=== PATIENT | male | born 1960 | race Caucasian/White ===

== ENCOUNTER 2016-07-19 18:34 | Emergency (ER) | payer MEDICARE, OTHER ==
[~2016-07-19] VITALS: Ht 177.8 cm; Wt 73.0 kg
[~2016-07-19 18:34] MED LIST: GABA300C5 PO; HYDR10SO PO; IBUP800T23 PO; LORA-475 PO; VENL1CAP38 PO
[2016-07-19 18:43] VITALS: BP 114/60; PULSE 91; RESP 18; O2SAT 95
[2016-07-19] MEDS ORDERED: SODIUM CHLOR 0.9% 1000 ML INJ 1,000 ML IV ONE (19:00)
[2016-07-19 19:10] VITALS: TEMP 98
[2016-07-19 19:44] LABS: BASOPHIL # 0.1 TH/MM3 (0-0.2); BASOPHIL % 0.6 % (0.0-2.0); EOSINOPHIL # 0.1 TH/MM3 (0-0.4); EOSINOPHIL % 0.7 % (0.0-4.0); HEMATOCRIT 39.8 % (39.0-51.0); HEMO FLAGS DIFF FINAL; LYMPH % 36.7 % (9.0-44.0); LYMPHOCYTE # 3.3 TH/MM3 (1.0-4.8); MEAN CELL VOLUME 95.2 FL (80.0-100.0); MEAN CORPUSCULAR HEMOGLOBIN 34.1 PG (27.0-34.0); MEAN CORPUSCULAR HGB CONC 35.8 % (32.0-36.0); MONO % 6.7 % (0.0-8.0); NEUT % 55.3 % (16.0-70.0); PLATELET COUNT 274 TH/MM3 (150-450); RED BLOOD COUNT 4.18 MIL/MM3 (4.50-5.90); RED CELL DISTRIBUTION WIDTH 14.5 % (11.6-17.2)
[2016-07-19] MEDS ORDERED: LORazepam 0.5 MG TAB PO ONE (19:45)
[2016-07-19] MEDS ORDERED: ACETAMINOPHEN/HYDROcodone 325 MG/5 MG TAB PO ONE (19:45)
[2016-07-19 20:12] LABS: BICARBONATE 28.6 MEQ/L (21.0-32.0); POTASSIUM 3.4 MEQ/L (3.5-5.1)
--- NOTE | 2016-07-19 21:30 | PD ---
HPI Chief Complaint: Medical Clearance Time Seen by Provider: 18:40 Travel History International Travel<30 days: No Contact w/Intl Traveler<30days: No Traveled to known affect area: No History of Present Illness HPI Patient is a 56-year-old male brought in by police under [employer] act. He was found stumbling walking around with alcohol on his breath. He currently has no complaints. He says he has chronic pain and he needs his Ativan and Lortab that he takes daily. He denies any falls tonight. PFSH Past Medical History Arthritis: Yes Bipolar Disorder: Yes Anxiety: Yes Depression: Yes Cancer: No Cardiovascular Problems: No Diabetes: No Diminished Hearing: No Endocrine: No Genitourinary: No Headaches: Yes (CLUSTER-TYPE) Immune Disorder: No Implanted Vascular Access Dvce: Yes Insomnia: Yes Musculoskeletal: Yes (Repair of C3-C5-C7, Left shoulder, left knee, neck) Neurologic: No Psychiatric: Yes Reproductive: No Respiratory: No Integumentary: Yes (SORES ON HEAD) Immunizations Current: Yes Seizures: Yes (RELATED TO WITHDRAWAL) Thyroid Disease: No Past Surgical History Abdominal Surgery: Yes (SPLENECTOMY) Body Medical Devices: Roes and pins down left leg, wires in neck and left shoulder Cardiac Surgery: No Genitourinary Surgery: No Joint Replacement: Yes (LEFT SHOULDER, LEFT KNEE) Neurologic Surgery: No Oral Surgery: Yes (TEETH EXTRACTED) Pacemaker: No Thoracic Surgery: No Tonsillectomy: Yes Other Surgery: Yes (Spleenectomy, Left arm/shoulder, Left knee, neck) Social History Alcohol Use: Yes Tobacco Use: Yes (1/2 PPD) Substance Use: Yes (Marijuana) Allergies-Medications (Allergen,Severity, Reaction): Coded Allergies: No Known Allergies (Unverified , 07/12/16) Reported Meds & Prescriptions Reported Meds & Active Scripts Active Ativan (Lorazepam) 2 Mg Tab 2 Mg PO Q8H PRN Effexor XR 24 HR (Venlafaxine HCl) 37.5 Mg Cap 37.5 Mg PO DAILY Gabapentin 300 Mg Cap 300 Mg PO 5 TIMES A DAY Ibuprofen 800 Mg Tab 800 Mg PO DAILY Reported Hydrocodone-Acetaminophen 10-325 mg Tab 1 Tab PO Q6H PRN Review of Systems Except as stated in HPI: all other systems reviewed are Neg Eyes: No: Diploplia, Blurred Vision HENT: No: Headaches Cardiovascular: No: Chest Pain or Discomfort Respiratory: No: Shortness of Breath Gastrointestinal: No: Nausea, Vomiting, Abdominal Pain Musculoskeletal: Positive: Pain Skin: No Change in Pigmentation Neurologic: No: Weakness, Dizziness Physical Exam Narrative GENERAL: Awake and alert, in AOB SKIN: Warm and dry. No wounds. HEAD: Atraumatic. Normocephalic. EYES: Pupils equal and round. No scleral icterus. EOMI ENT: Mucous membranes pink and moist. NECK: Trachea midline. No JVD. CARDIOVASCULAR: Regular rate and rhythm. No murmur appreciated. RESPIRATORY: No accessory muscle use. Clear to auscultation. Breath sounds equal bilaterally. GASTROINTESTINAL: Abdomen soft, non-tender, nondistended. MUSCULOSKELETAL: No obvious deformities. No clubbing. No cyanosis. No edema. NEUROLOGICAL: Awake and alert. No obvious cranial nerve deficits. Motor grossly within normal limits. Normal speech. PSYCHIATRIC: Appropriate mood and affect; insight and judgment normal. Data Data Last Documented VS Vital Signs Date Time Temp Pulse Resp B/P Pulse Ox O2 Delivery O2 Flow Rate FiO2 07/19/16 19:10 98.0 07/19/16 18:43 91 18 114/60 95 Orders Complete Blood Count With Diff (07/19/16 18:54) Basic Metabolic Panel (Bmp) (07/19/16 18:54) Alcohol (Ethanol) (07/19/16 18:54) Sodium Chlor 0.9% 1000 Ml Inj (Ns 1000 M (07/19/16 19:00) Acetamin-Hydrocod 325-5 Mg ([place] 5-325 (07/19/16 19:45) Lorazepam (Ativan) (07/19/16 19:45) Labs Laboratory Tests Test 07/19/16 19:15 White Blood Count 9.0 TH/MM3 Red Blood Count 4.18 MIL/MM3 Hemoglobin 14.2 GM/DL Hematocrit 39.8 % Mean Corpuscular Volume 95.2 FL Mean Corpuscular Hemoglobin 34.1 PG Mean Corpuscular Hemoglobin 35.8 % Concent Red Cell Distribution Width 14.5 % Platelet Count 274 TH/MM3 Mean Platelet Volume 7.3 FL Neutrophils (%) (Auto) 55.3 % Lymphocytes (%) (Auto) 36.7 % Monocytes (%) (Auto) 6.7 % Eosinophils (%) (Auto) 0.7 % Basophils (%) (Auto) 0.6 % Neutrophils # (Auto) 5.0 TH/MM3 Lymphocytes # (Auto) 3.3 TH/MM3 Monocytes # (Auto) 0.6 TH/MM3 Eosinophils # (Auto) 0.1 TH/MM3 Basophils # (Auto) 0.1 TH/MM3 CBC Comment DIFF FINAL Differential Comment Sodium Level 136 MEQ/L Potassium Level 3.4 MEQ/L Chloride Level 98 MEQ/L Carbon Dioxide Level 28.6 MEQ/L Anion Gap 9 MEQ/L Blood Urea Nitrogen 9 MG/DL Creatinine 0.69 MG/DL Estimat Glomerular Filtration 119 ML/MIN Rate Random Glucose 97 MG/DL Calcium Level 9.0 MG/DL Ethyl Alcohol Level 249 MG/DL MDM Medical Decision Making Medical Screen Exam Complete: Yes Emergency Medical Condition: Yes Medical Record Reviewed: Yes Differential Diagnosis intoxication vs chronic pain vs overdose Narrative Course Patient is a 56 year old male brought in by PD after being found publically intoxicated. He has no complaints other than chronic pain. Exam shows no signs of trauma. Patient requesting his Lortab and Ativan, which he takes regularly. Alcohol level is 249. Will observe in ED until sober. Diagnosis Primary Impression: Alcohol abuse Condition: Stable Linnea Weiss MD Jul 19, 2016 21:30
[2016-07-19] MEDS ORDERED: HYDR-3583 PO (21:45)
[2016-08-13] MEDS ORDERED: LORA-475 PO ×2 (09:18→09:20)
[2016-08-13] MEDS ORDERED: GABA300C5 PO (09:18)
[2016-08-13] MEDS ORDERED: VENL1CAP38 PO (09:18)
[2016-08-13] MEDS ORDERED: IBUP800T23 PO (09:18)
== END 2016-07-20 05:47 | disposition home or self-care (01) ==
LOC: NEPA 18:34
DX: F10.10 Alcohol abuse, uncomplicated (principal); F17.210 Nicotine dependence, cigarettes, uncomplicated; F12.90 Cannabis use, unspecified, uncomplicated
CPT/HCPCS: 80048; 80307; 85025; 99284

== ENCOUNTER → 2016-12-04 | Day surgery (SDC) | payer MEDICARE ==
[~2016-12-04] VITALS: Ht 167.6 cm; Wt 75.0 kg
[~2016-12-04] MED LIST changes: +BUPIVACAINE HCL PF 0.5% 30 ML VIAL ONE; +CEPH-460 PO; +CHLORHEXIDINE GLUCONATE 2 % 1 PACK (2 CLOTHS) TOPICAL PRN; +FAMOTIDINE 20 MG/2 ML VIAL ONE; +HYDR-3583 PO; -HYDR10SO PO; +HYDROmorphone HCL PF 2 MG/ML VIAL ONE; +INSULIN HUMAN REGULAR 1,000 UNITS/10 ML VIAL SQ PRN; +KETOROLAC TROMETHAMINE 30 MG/ML (IVP) VIAL ONE; +LACTATED RINGER'S 1000 ML IV PRN; +LIDOCAINE HCL 2% 50 ML VIAL ONE; +METOPROLOL TARTRATE 25 MG TAB PO PRN; +MIDAZOLAM HCL 2 MG/2 ML VIAL ONE; +MORPHINE SULFATE 4 MG/ML INJ ONE; +NEOMYCIN/POLYMYXIN 1 ML G.U. IRRIGANT IR ONE; +NEOMYCIN/POLYMYXIN 1 ML G.U. IRRIGANT ONE; +ONDANSETRON HCL 4 MG/2 ML VIAL IV PUSH ONE; +PHENYLEPH/NS 1000 MCG/10 ML SYR IV ONE; +POVIDONE IODINE 5% (ANTISEPSIS KIT) 4 APPLICATIONS EACH NARE PRN; +PROPOFOL 200 MG/20 ML AMP IV ONE; +SODIUM CHLORID 0.9% 500 ML IV PRN; +SODIUM CHLORIDE 0.9% INJ 100 ML ONE; +ceFAZolin 1,000 MG/NS 100 ML IV PRN; +ceFAZolin INJ 1,000 MG VIAL ONE; +ePHEDrine/NS 25 MG/5 ML SYR IV ONE
[2016-12-04 08:28] VITALS: BP 114/83; PULSE 67; RESP 18; TEMP 97.5; O2SAT 98
--- NOTE | 2016-12-04 12:26 | MP ---
cc: FRED LANCASTER III, M.D. DATE OF SURGERY 12/04/2016 DATE OF OPERATION 12/04/2016 PREOPERATIVE DIAGNOSIS Right index finger and small finger proximal phalangeal fractures. PROCEDURE 1. Right index finger open reduction and pinning. 2. Right small finger proximal phalanx open reduction and pinning 3. Use of image intensifier SURGEON Fred Lancaster III, MD PROCEDURE The patient was brought to the operating room, placed supine on the operating table. After the correct site and side of surgery were verified by members of each team in the room multiple times including the patient, myself, and after adequate preoperative markings and preoperative written consent were verified by everyone and after an adequate preoperative time-out was performed to everyone's satisfaction and after adequate general anesthesia had been achieved, the right upper extremity was prepped and draped in the traditional sterile surgical fashion. The mini C-arm was used to verify the intended procedure. A 50/50 mixture of 2% plain lidocaine, 0.5% plain Marcaine was infiltrated into the skin and subcutaneous tissue in the dorsal aspect of the second finger as well as into the MP joint. Closed manipulation was attempted under mini C-arm guidance, but there was no reducing the fracture in any way. So after 15 minutes of manipulation under C-arm, it was without any improvement in the appearance or movement. The limb was limb was exsanguinated with a gentle Pranav wrap and a highly placed well-placed, well-padded axillary tourniquet was inflated to 200 mmHg for a total of 51 minutes. A longitudinal incision made on the dorsal aspect of the index finger and carried down through skin and subcutaneous tissue. Blunt dissection was performed. Bipolar electrocautery was used as needed. The index finger extensor tendon was then split in-line and retracted in the opposite directions. The joint capsule was opened and a multi fragmented articular surface with an extended fracture was healing with thick periosteal reaction preventing any reduction. All this inflammatory tissue was resected. The fracture was mobilized. A thorough irrigation was performed crossing 0.045 cm K-wires were used which stabilized the proximal phalanx in an anatomic position. Bone graft putty was used to fill in the void. The capsule was then closed using 3-0 Vicryl sutures. Thorough irrigation was performed again. The extensor tendon was repaired using running 3-0 Ethibond suture and another bout of irrigation was done and then the skin edges reapproximated using running 5-0 nylon sutures. The hand arm were thoroughly cleansed and dried. The pins were tailored to length, cut bent and Yady balls were applied. Betadine Adaptic was applied over the wound and Betadine and Xeroform was applied around the pin sites. The identical procedure was then performed for the fifth finger proximal phalanx. Final x-rays were obtained. A very well-padded, well molded volar immobilizing splint was made leaving only the thumb free. Once this was in placed, the axillary tourniquet was released. The hand and all the fingers became immediately soft, pink and warm and had brisk capillary refill of less than two-seconds. The patient awakened from anesthesia and transported to the Post Anesthesia Care Unit awake and in stable condition at the end of the case. The sponge, needle and instrument counts were correct at the end of the case as reported by nurses in the room. MD KARLA Nolasco III/DUY /12:03 PM /12:15 PM
[2016-12-04 13:30] VITALS: BP 118/84; PULSE 62; RESP 16; TEMP 98; O2SAT 99
== END | disposition home or self-care (01) ==
LOC: PHSDC 07:26
PROVIDERS: ATTEND Orthopaedic Surgery Hand Surgery
DX: S62.610A Displaced fracture of proximal phalanx of right index finger, initial encounter for closed fracture (principal); S62.616A Displaced fracture of proximal phalanx of right little finger, initial encounter for closed fracture; Y08.89XA Assault by other specified means, initial encounter; F17.200 Nicotine dependence, unspecified, uncomplicated
CPT/HCPCS: 01830; 26735; 76000; J0690; J1170; J1885; J2250; J2270; J2370; J2405; J3010; J7120

== ENCOUNTER 2017-07-15 15:43 | Observation (INO) | payer MEDICARE, OTHER ==
[~2017-07-15] VITALS: Ht 177.8 cm; Wt 78.0 kg
[~2017-07-15 15:43] MED LIST changes: -BUPIVACAINE HCL PF 0.5% 30 ML VIAL ONE; -CEPH-460 PO; -CHLORHEXIDINE GLUCONATE 2 % 1 PACK (2 CLOTHS) TOPICAL PRN; -FAMOTIDINE 20 MG/2 ML VIAL ONE; -HYDROmorphone HCL PF 2 MG/ML VIAL ONE; +IBUP1TAB7 PO; -IBUP800T23 PO; -INSULIN HUMAN REGULAR 1,000 UNITS/10 ML VIAL SQ PRN; -KETOROLAC TROMETHAMINE 30 MG/ML (IVP) VIAL ONE; -LACTATED RINGER'S 1000 ML IV PRN; -LIDOCAINE HCL 2% 50 ML VIAL ONE; +LORA2TAB7 PO; -METOPROLOL TARTRATE 25 MG TAB PO PRN; -MIDAZOLAM HCL 2 MG/2 ML VIAL ONE; -MORPHINE SULFATE 4 MG/ML INJ ONE; -NEOMYCIN/POLYMYXIN 1 ML G.U. IRRIGANT IR ONE; -NEOMYCIN/POLYMYXIN 1 ML G.U. IRRIGANT ONE; -ONDANSETRON HCL 4 MG/2 ML VIAL IV PUSH ONE; -PHENYLEPH/NS 1000 MCG/10 ML SYR IV ONE; -POVIDONE IODINE 5% (ANTISEPSIS KIT) 4 APPLICATIONS EACH NARE PRN; -PROPOFOL 200 MG/20 ML AMP IV ONE; -SODIUM CHLORID 0.9% 500 ML IV PRN; -SODIUM CHLORIDE 0.9% INJ 100 ML ONE; -ceFAZolin 1,000 MG/NS 100 ML IV PRN; -ceFAZolin INJ 1,000 MG VIAL ONE; -ePHEDrine/NS 25 MG/5 ML SYR IV ONE
[2017-07-15 16:09] VITALS: BP 106/69; PULSE 100; RESP 18; TEMP 100.8; O2SAT 99
[2017-07-15 16:43] VITALS: BP 116/65; PULSE 83; RESP 18; TEMP 97.8; O2SAT 98
[2017-07-15] MEDS ORDERED: BACL10TA PO (16:48)
[2017-07-15] MEDS ORDERED: CYCL10TA PO (16:48)
[2017-07-15] MEDS ORDERED: SODIUM CHLOR 0.9% 1000 ML INJ 1,000 ML IV ONE (17:00)
--- NOTE | 2017-07-15 17:05 | PD ---
HPI Chief Complaint: Altered Mental Status Time Seen by Provider: 18:57 Travel History International Travel<30 days: No Contact w/Intl Traveler<30days: No Traveled to known affect area: No History of Present Illness HPI 57-year-old male presents emergency department as a [place] act from [facility] with apparent altered mental status after trying to walk into an unknown residence today. Apparently this was the second contact with police today. Patient says that he does not know why he is here today. He denies fever , chills, chest pain, shortness of breath, nausea, vomiting, diarrhea. Denies problems with the law. Denies SI/HI. Denies recent alcohol or illicit drug use. Says he used cocaine in his youth (in his 20s). Denies history of cardiac, pulmonary, kidney issues. PFSH Past Medical History Arthritis: Yes Bipolar Disorder: Yes Anxiety: Yes Depression: Yes Cancer: No Cardiovascular Problems: No Diabetes: No Diminished Hearing: No Endocrine: No Genitourinary: No Headaches: Yes (CLUSTER-TYPE) Hepatitis: No Hiatal Hernia: No Immune Disorder: No Implanted Vascular Access Dvce: Yes Insomnia: Yes Musculoskeletal: Yes (Repair of C3-C5-C7, Left shoulder, left knee, neck) Neurologic: Yes (NEUROPATHY HANDS/LOWER ARMS) Psychiatric: Yes (MOOD DISORDER, DEPRESSIVE DISORDER) Reproductive: No Respiratory: No Integumentary: Yes (SORES ON HEAD) Immunizations Current: Yes Seizures: Yes (RELATED TO WITHDRAWAL) Thyroid Disease: No Past Surgical History Abdominal Surgery: Yes (SPLENECTOMY) AICD: No Body Medical Devices: Roes and pins down left leg, wires in neck and PINS left shoulder Cardiac Surgery: No Genitourinary Surgery: No Joint Replacement: Yes (LEFT SHOULDER, LEFT KNEE) Neurologic Surgery: No Oral Surgery: Yes (TEETH EXTRACTED, TONSILLECTOMY) Pacemaker: No Thoracic Surgery: No Tonsillectomy: Yes Other Surgery: Yes (Spleenectomy, Left arm/shoulder, Left knee, neck) Social History Alcohol Use: Yes Tobacco Use: Yes (1/2 PPD) Substance Use: Yes (Marijuana OCC) Allergies-Medications (Allergen,Severity, Reaction): Coded Allergies: No Known Allergies (Unverified Allergy, Unknown, 07/15/17) Reported Meds & Prescriptions Reported Meds & Active Scripts Active Lorazepam 2 Mg Tab 2 Mg PO Q8H PRN Effexor XR 24 HR (Venlafaxine HCl) 37.5 Mg Cap 37.5 Mg PO DAILY Gabapentin 300 Mg Cap 300 Mg PO 5 TIMES A DAY Ibuprofen 800 Mg Tab 800 Mg PO DAILY Reported Baclofen 10 Mg Tab 10 Mg PO TID Flexeril (Cyclobenzaprine HCl) 10 Mg Tab 10 Mg PO TID Hydrocodone-Acetaminophen 10-325 mg Tab 1 Tab PO QID Review of Systems Except as stated in HPI: all other systems reviewed are Neg Physical Exam Narrative GENERAL: Well developed, well-nourished SKIN: Focused skin assessment warm/dry. Left shoulder, right knee, cervical spine-remote scars present HEAD: Atraumatic. Normocephalic. EYES: Pupils equal and round. No scleral icterus. No injection or drainage. ENT: No nasal bleeding or discharge. Mucous membranes pink and moist. NECK: Trachea midline. No JVD. CARDIOVASCULAR: Regular rate and rhythm. No murmur appreciated. RESPIRATORY: No accessory muscle use. Clear to auscultation. Breath sounds equal bilaterally. GASTROINTESTINAL: Abdomen soft, non-tender, nondistended. No midline tenderness MUSCULOSKELETAL: No obvious deformities. No clubbing. No cyanosis. No edema. NEUROLOGICAL: Awake and alert. No obvious cranial nerve deficits. Motor grossly within normal limits. difficulty understanding patient as he does not not teeth and has a dry mucosa. PSYCHIATRIC: Appropriate mood and affect; insight and judgment normal. Data Data Last Documented VS Vital Signs Date Time Temp Pulse Resp B/P (MAP) Pulse Ox O2 Delivery O2 Flow Rate FiO2 07/15/17 21:06 97.8 07/15/17 19:30 88 14 98 Room Air Orders Orders Sepsis Workup Initiated (07/15/17 ) Complete Blood Count With Diff (07/15/17 16:11) Comprehensive Metabolic Panel (07/15/17 16:11) Urinalysis - C+S If Indicated (07/15/17 16:11) Lactic Acid Sepsis Protocol (07/15/17 16:11) Chest, Single Ap (07/15/17 16:11) Blood Culture (07/15/17 16:11) Iv Access Insert/Monitor (07/15/17 16:11) Oxygen Administration (07/15/17 16:11) Oximetry (07/15/17 16:11) Blood Glucose (07/15/17 16:11) Drug Screen, Random Urine (07/15/17 16:12) Alcohol (Ethanol) (07/15/17 16:56) Electrocardiogram (07/15/17 ) Sodium Chlor 0.9% 1000 Ml Inj (Ns 1000 M (07/15/17 17:00) Ct Brain W/O Iv Contrast(Rout) (07/15/17 ) ^ Sitter (07/15/17 17:22) Lorazepam Inj (Ativan Inj) (07/15/17 18:00) Admit Order (Ed Use Only) (07/15/17 ) Vital Signs (Adult) Q4H (07/15/17 21:33) Activity Bed Rest (07/15/17 21:33) Labs Laboratory Tests Test 07/15/17 17:00 07/15/17 20:03 White Blood Count 9.3 TH/MM3 Red Blood Count 4.24 MIL/MM3 Hemoglobin 14.7 GM/DL Hematocrit 40.7 % Mean Corpuscular Volume 96.0 FL Mean Corpuscular Hemoglobin 34.8 PG Mean Corpuscular Hemoglobin Concent 36.3 % Red Cell Distribution Width 14.2 % Platelet Count 267 TH/MM3 Mean Platelet Volume 7.1 FL Neutrophils (%) (Auto) 65.0 % Lymphocytes (%) (Auto) 24.4 % Monocytes (%) (Auto) 9.0 % Eosinophils (%) (Auto) 1.2 % Basophils (%) (Auto) 0.4 % Neutrophils # (Auto) 6.0 TH/MM3 Lymphocytes # (Auto) 2.3 TH/MM3 Monocytes # (Auto) 0.8 TH/MM3 Eosinophils # (Auto) 0.1 TH/MM3 Basophils # (Auto) 0.0 TH/MM3 CBC Comment AUTO DIFF Differential Comment AUTO DIFF CONFIRMED Blood Urea Nitrogen 9 MG/DL Creatinine 0.78 MG/DL Random Glucose 76 MG/DL Total Protein 7.7 GM/DL Albumin 3.9 GM/DL Calcium Level 9.2 MG/DL Alkaline Phosphatase 80 U/L Aspartate Amino Transf (AST/SGOT) 31 U/L Alanine Aminotransferase (ALT/SGPT) 33 U/L Total Bilirubin 0.6 MG/DL Sodium Level 139 MEQ/L Potassium Level 3.6 MEQ/L Chloride Level 103 MEQ/L Carbon Dioxide Level 28.1 MEQ/L Anion Gap 8 MEQ/L Estimat Glomerular Filtration Rate 103 ML/MIN Lactic Acid Level 0.8 mmol/L Ethyl Alcohol Level LESS THAN 3 MG/DL Urine Color LIGHT-YELLOW Urine Turbidity CLEAR Urine pH 5.5 Urine Specific [place] 1.005 Urine Protein NEG mg/dL Urine Glucose (UA) NEG mg/dL Urine Ketones NEG mg/dL Urine Occult Blood NEG Urine Nitrite NEG Urine Bilirubin NEG Urine Urobilinogen LESS THAN 2.0 MG/DL Urine Leukocyte Esterase NEG Urine RBC 1 /hpf Microscopic Urinalysis Comment CULT NOT INDICATED Urine Opiates Screen NEG Urine Barbiturates Screen NEG Urine Amphetamines Screen NEG Urine Benzodiazepines Screen NEG Urine Cocaine Screen NEG Urine Cannabinoids Screen NEG MDM Medical Decision Making Medical Screen Exam Complete: Yes Emergency Medical Condition: Yes Differential Diagnosis Polysubstance use, alcohol abuse, encephalopathy, dehydration Narrative Course 57-year-old male presents emergency department as a [employer] act from [place] [employer] with apparent altered mental status after trying to walk into an unknown residence today. Apparently this was the second contact with police today. Patient says that he does not know why he is here today. He denies fever , chills, chest pain, shortness of breath, nausea, vomiting, diarrhea. Denies problems with the law. Denies SI/HI. Denies recent alcohol or illicit drug use. Says he used cocaine in his youth (in his 20s). Denies history of cardiac, pulmonary, kidney issues. Vital signs stable. Initial temperature 100.8 however recheck multiple times to demonstrate 97.8. EKG shows sinus rhythm without STEMI changes. A sitter was ordered as he attempted to leave the ED before being released. Ativan 1mg administered for agitation and sedation for Head CT. Attempted to administer 1L NS for hydration but there was significant difficulty obtaining the IV and he was able to tolerate PO fluids. Advised he needed to drink plenty of fluids. Review of the EMR it appears that patient's has been seen by Dr. Rick in May. It does not appear he has a point of contact phone number in the chart, only a name. ОЛЬГА Bower, placed call the patient's number in hopes of reaching someone who could give more information regarding this patient but this resulted in patient's cell phone ringing. EFORSCE did not show and Rx for the last year for controlled substances. Last Impressions Chest X-Ray 07/15/17 1611 Signed Impressions: Service Date/Time: Saturday, July 15, 2017 17:53 - CONCLUSION: No evidence of acute cardiopulmonary disease. Dhiraj Mejia MD Head CT 07/15/17 0000 Signed Impressions: Service Date/Time: Saturday, July 15, 2017 18:02 - CONCLUSION: No evidence of acute cardiopulmonary disease. Dhiraj Mejia MD CBC & BMP Diagram 07/15/17 17:00 Total Protein 7.7, Albumin 3.9, Calcium Level 9.2, Alkaline Phosphatase 80, Aspartate Amino Transf (AST/SGOT) 31, Alanine Aminotransferase (ALT/SGPT) 33, Total Bilirubin 0.6 UDS and alcohol negative. There is no obvious source of AMS and I do not have a baseline for this patient. Pt will be admitted for observation. Diagnosis Primary Impression: Acute encephalopathy Admitting Information Admitting Physician Requests: Observation Condition: Stable Connie Earl Jul 15, 2017 17:05
[2017-07-15 18:00] LABS: ALKALINE PHOSPHATASE 80 U/L (45-117); TOTAL BILIRUBIN ADULT 0.6 MG/DL (0.2-1.0); TOTAL PROTEIN 7.7 GM/DL (6.4-8.2)
[2017-07-15] MEDS ORDERED: LORazepam 2 MG/ML VIAL IV PUSH ONE (18:00)
[2017-07-15 18:01] LABS: BASOPHIL % 0.4 % (0.0-2.0); EOSINOPHIL # 0.1 TH/MM3 (0-0.4); EOSINOPHIL % 1.2 % (0.0-4.0); HEMATOCRIT 40.7 % (39.0-51.0); HEMOGLOBIN 14.7 GM/DL (13.0-17.0); LYMPH % 24.4 % (9.0-44.0); LYMPHOCYTE # 2.3 TH/MM3 (1.0-4.8); MEAN CORPUSCULAR HEMOGLOBIN 34.8 PG (27.0-34.0); MEAN PLATELET VOLUME 7.1 FL (7.0-11.0); MONOCYTE # 0.8 TH/MM3 (0-0.9); PLATELET COUNT 267 TH/MM3 (150-450); RED BLOOD COUNT 4.24 MIL/MM3 (4.50-5.90); RED CELL DISTRIBUTION WIDTH 14.2 % (11.6-17.2); WHITE BLOOD COUNT 9.3 TH/MM3 (4.0-11.0)
[2017-07-15 18:05] LABS: ALBUMIN 3.9 GM/DL (3.4-5.0); ALT (GPT) 33 U/L (12-78); AST (GOT) 31 U/L (15-37); BICARBONATE 28.1 MEQ/L (21.0-32.0); BLOOD UREA NITROGEN 9 MG/DL (7-18); CALCIUM 9.2 MG/DL (8.5-10.1); CHLORIDE 103 MEQ/L (98-107); CREATININE 0.78 MG/DL (0.60-1.30); GLOMERULAR FILTRATION RATE 103 ML/MIN (>89); GLUCOSE,RANDOM 76 MG/DL (74-106); SODIUM (NA) 139 MEQ/L (136-145)
--- NOTE | 2017-07-15 18:13 | RADRPT ---
EXAM DATE/TIME: 07/15/2017 17:53 [facility] COMPARISON: No previous studies available for comparison. INDICATIONS : Short of breath. MEDICAL HISTORY : None. SURGICAL HISTORY : None. ENCOUNTER: Initial ACUITY: 1 day PAIN SCORE: 0/10 LOCATION: Bilateral chest FINDINGS: A single view of the chest demonstrates the lungs to be symmetrically aerated without evidence of mas s, infiltrate or effusion. The cardiomediastinal contours are unremarkable. No acute bony abnormality demonstrated. Patient has had left shoulder replacement with chronic appear ing glenoid remodeling. There are degenerative changes of both acromioclavicular joints. There are ol d fractures of both clavicles. CONCLUSION: No evidence of acute cardiopulmonary disease. Dhiraj Mejia MD on July 15, 2017 at 18:10 Board Certified Radiologist. This report was verified electronically.
[2017-07-15 18:15] LABS: MEAN CORPUSCULAR HGB CONC 36.3 % (32.0-36.0)
--- NOTE | 2017-07-15 18:27 | RADRPT ---
EXAM DATE/TIME: 07/15/2017 18:02 [facility] COMPARISON: CT BRAIN W/O CONTRAST, January 06, 2016, 17:51. INDICATIONS : Altered mental status. RADIATION DOSE: 56.35 CTDIvol (mGy) MEDICAL HISTORY : None SURGICAL HISTORY : Splenectomy. Cervical. ENCOUNTER: Initial ACUITY: 1 day PAIN SCALE: 0/10 LOCATION: cranial TECHNIQUE: Multiple contiguous axial images were obtained of the head. Using automated exposure control and adj ustment of the mA and/or kV according to patient size, radiation dose was kept as low as reasonably a chievable to obtain optimal diagnostic quality images. DICOM format image data is available electro nically for review and comparison. FINDINGS: CEREBRUM: The ventricles are normal for age. No evidence of midline shift, mass lesion, hemorrhage or acute in farction. No extra-axial fluid collections are seen. POSTERIOR FOSSA: The cerebellum and brainstem are intact. The 4th ventricle is midline. The cerebellopontine angle i s unremarkable. EXTRACRANIAL: The visualized portion of the orbits is intact. SKULL: The calvaria is intact. No evidence of skull fracture. CONCLUSION: No evidence of acute cardiopulmonary disease. Dhiraj Mejia MD on July 15, 2017 at 18:25 Board Certified Radiologist. This report was verified electronically.
--- NOTE | 2017-07-15 18:54 | PD ---
Data Data Last Documented VS Vital Signs Date Time Temp Pulse Resp B/P (MAP) Pulse Ox O2 Delivery O2 Flow Rate FiO2 07/15/17 16:43 97.8 83 18 116/65 (82) 98 Room Air Orders Orders Sepsis Workup Initiated (07/15/17 ) Complete Blood Count With Diff (07/15/17 16:11) Comprehensive Metabolic Panel (07/15/17 16:11) Urinalysis - C+S If Indicated (07/15/17 16:11) Lactic Acid Sepsis Protocol (07/15/17 16:11) Chest, Single Ap (07/15/17 16:11) Blood Culture (07/15/17 16:11) Iv Access Insert/Monitor (07/15/17 16:11) Oxygen Administration (07/15/17 16:11) Oximetry (07/15/17 16:11) Blood Glucose (07/15/17 16:11) Drug Screen, Random Urine (07/15/17 16:12) Alcohol (Ethanol) (07/15/17 16:56) Electrocardiogram (07/15/17 ) Sodium Chlor 0.9% 1000 Ml Inj (Ns 1000 M (07/15/17 17:00) Ct Brain W/O Iv Contrast(Rout) (07/15/17 ) ^ Sitter (07/15/17 17:22) Lorazepam Inj (Ativan Inj) (07/15/17 18:00) Labs Laboratory Tests Test 07/15/17 17:00 White Blood Count 9.3 TH/MM3 Red Blood Count 4.24 MIL/MM3 Hemoglobin 14.7 GM/DL Hematocrit 40.7 % Mean Corpuscular Volume 96.0 FL Mean Corpuscular Hemoglobin 34.8 PG Mean Corpuscular Hemoglobin Concent 36.3 % Red Cell Distribution Width 14.2 % Platelet Count 267 TH/MM3 Mean Platelet Volume 7.1 FL Neutrophils (%) (Auto) 65.0 % Lymphocytes (%) (Auto) 24.4 % Monocytes (%) (Auto) 9.0 % Eosinophils (%) (Auto) 1.2 % Basophils (%) (Auto) 0.4 % Neutrophils # (Auto) 6.0 TH/MM3 Lymphocytes # (Auto) 2.3 TH/MM3 Monocytes # (Auto) 0.8 TH/MM3 Eosinophils # (Auto) 0.1 TH/MM3 Basophils # (Auto) 0.0 TH/MM3 CBC Comment AUTO DIFF Blood Urea Nitrogen 9 MG/DL Creatinine 0.78 MG/DL Random Glucose 76 MG/DL Total Protein 7.7 GM/DL Albumin 3.9 GM/DL Calcium Level 9.2 MG/DL Alkaline Phosphatase 80 U/L Aspartate Amino Transf (AST/SGOT) 31 U/L Alanine Aminotransferase (ALT/SGPT) 33 U/L Total Bilirubin 0.6 MG/DL Sodium Level 139 MEQ/L Potassium Level 3.6 MEQ/L Chloride Level 103 MEQ/L Carbon Dioxide Level 28.1 MEQ/L Anion Gap 8 MEQ/L Estimat Glomerular Filtration Rate 103 ML/MIN Lactic Acid Level 0.8 mmol/L Ethyl Alcohol Level LESS THAN 3 MG/DL MDM Supervised Visit with YOLANDA: Yes Narrative Course The history, exam, and medical decision-making in the associated mid-level provider note were completed with my assistance. I reviewed and agree with the findings presented. I attest that I had a [id number] encounter with the patient on the same day, and personally performed and documented my assessment and findings in the medical record. *My assessment and Findings: Is a 57-year-old man, presents with altered mental status, brought in by law enforcement. He has had previous admissions for altered mental status for treated alcohol and substance abuse. Patient unable to provide any meaningful history, monitors, and is difficult to understand. Will check labs, CT head, reassess. If clears may be able to be discharged home, if not may need admission. Condition: Stable Norberto Baker MD Jul 15, 2017 18:54
[2017-07-15 19:30] VITALS: BP 131/71; PULSE 88; RESP 14; O2SAT 98
[2017-07-15 20:38] LABS: BILIRUBIN, URINE NEG (NEG); BLOOD, URINE NEG (NEG); GLUCOSE,URINE NEG (NEG); KETONE, URINE NEG (NEG); NITRITE,URINE NEG (NEG); PH, URINE 5.5 (5.0-8.5); URINE COLOR LIGHT-YELLOW (YELLW/STRAW); URINE LEUKOCYTE ESTERASE NEG (NEG)
[2017-07-15 21:06] VITALS: TEMP 97.8
--- NOTE | 2017-07-15 21:35 | HHI.HP ---
[facility] Service Family Medicine Primary Care Physician Homar Vaughan MD Admission Diagnosis AMS Diagnoses: Chief Complaint: Wylie act International Travel<30 Days: No Contact w/Intl Traveler<30days: No History of Present Illness 57-year-old male presents today to the emergency department under Wylie act from [facility] due to altered mental status. According to the reports, he was trying to walk into unknown residence today. Patient unable to provide much history, due to altered mental status. He does not know why he is here. He is oriented to person, place and time, however his speech is difficult to understand and gets distracted easily. Currently denies any concerns. Denies any pain besides his usual chronic joint pain. Denies any fever/chills, headache, changes in vision, chest pain, shortness of breath, nausea/vomiting, diarrhea. States he has been taking his medications, although was out of them for about a week. He saw Dr. Rick about 2 months ago, with reports he is doing very well. (Brendon Bernard MD) Review of Systems ROS Limitations: Altered Mental Status Constitutional: DENIES: Fever, Weight loss, Chills, Dizziness Eyes: DENIES: Eye pain, Vision loss Respiratory: DENIES: Cough, Shortness of breath Cardiovascular: DENIES: Chest pain, Palpitations Gastrointestinal: DENIES: Abdominal pain, Diarrhea, Nausea, Vomiting Genitourinary: DENIES: Urinary frequency Musculoskeletal: DENIES: Neck pain Integumentary: DENIES: Abnormal pigmentation, Rash Hematologic/lymphatic: DENIES: Bruising, Lymphadenopathy Immunologic/allergic: DENIES: Eczema, Urticaria Neurologic: DENIES: Abnormal gait, Headache, Paresthesias, Seizures Psychiatric: COMPLAINS OF: Anxiety, Confusion (Brendon Bernard MD) Past Family Social History Past Medical History Depressive disorder, mood disorder C5 compression fx Knee injury Past Surgical History Left shoulder surgery replacement in 2002 Knee surgery in 1987 knee surgery 2014 left knee Neck surgery 1985. Splenectomy 1977 Reported Medications Reported Meds & Active Scripts Active Lorazepam 2 Mg Tab 2 Mg PO Q8H PRN Effexor XR 24 HR (Venlafaxine HCl) 37.5 Mg Cap 37.5 Mg PO DAILY Gabapentin 300 Mg Cap 300 Mg PO 5 TIMES A DAY Ibuprofen 800 Mg Tab 800 Mg PO DAILY Reported Baclofen 10 Mg Tab 10 Mg PO TID Flexeril (Cyclobenzaprine HCl) 10 Mg Tab 10 Mg PO TID Hydrocodone-Acetaminophen 10-325 mg Tab 1 Tab PO QID (Brendon Bernard MD) Allergies: Coded Allergies: No Known Allergies (Unverified Allergy, Unknown, 07/15/17) Active Ordered Medications Active Medications Lorazepam (Ativan Inj) 1 mg ONCE ONCE IV PUSH Last administered on 07/15/17at 17 :58; Admin Dose 1 MG; Start 07/15/17 at 18:00; Stop 07/15/17 at 18:01; Status DC Sodium Chloride 1,000 ml @ 999 mls/hr BOLUS ONCE IV Last administered on at 17:09; Admin Dose 999 MLS/HR; Start 07/15/17 at 17:00; Stop 07/15/17 at 18: 00; Status DC Family History Father of brain cancer mother of lymphoma 2 sons healthy Social History 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 Rarely drinks alcohol one half pack per day for 40 years no drugs (Brendon Bernard MD) Physical Exam Vital Signs Vital Signs Date Time Temp Pulse Resp B/P (MAP) Pulse Ox O2 Delivery O2 Flow Rate FiO2 07/15/17 21:06 97.8 07/15/17 19:30 88 14 131/71 (91) 98 Room Air 07/15/17 19:06 16 07/15/17 16:43 97.8 83 18 116/65 (82) 98 Room Air 07/15/17 16:43 18 98 07/15/17 16:43 89 18 99 Room Air 07/15/17 16:43 98 Room Air 07/15/17 16:09 100.8 100 18 106/69 (81) 99 Physical Exam GENERAL: This is a well-nourished, well-developed patient, in no apparent distress. SKIN: No rashes, ecchymoses or lesions. Cool and dry. HEAD: Atraumatic. Normocephalic. No temporal or scalp tenderness. EYES: Pupils equal round and reactive. Extraocular motions intact. No scleral icterus. No injection or drainage. ENT: Throat without erythema, tonsillar hypertrophy or exudate. Uvula midline. Airway patent. NECK: Trachea midline. No JVD or lymphadenopathy. Supple, nontender. CARDIOVASCULAR: Regular rate and rhythm without murmurs, gallops, or rubs. RESPIRATORY: Clear to auscultation. Breath sounds equal bilaterally. No wheezes , rales, or rhonchi. GASTROINTESTINAL: Abdomen soft, non-tender, nondistended. No hepato-splenomegaly , or palpable masses. No guarding. MUSCULOSKELETAL: Extremities without clubbing, cyanosis, or edema. No joint tenderness, effusion, or edema noted. No calf tenderness. NEUROLOGICAL: Awake and alert. Cranial nerves II through XII intact. Motor and sensory grossly within normal limits. Five out of 5 muscle strength in all muscle groups. Normal speech. AOx3. Seems distracted at times. Laboratory Laboratory Tests Test 07/15/17 17:00 07/15/17 20:03 White Blood Count 9.3 Red Blood Count 4.24 Hemoglobin 14.7 Hematocrit 40.7 Mean Corpuscular Volume 96.0 Mean Corpuscular Hemoglobin 34.8 Mean Corpuscular Hemoglobin Concent 36.3 Red Cell Distribution Width 14.2 Platelet Count 267 Mean Platelet Volume 7.1 Neutrophils (%) (Auto) 65.0 Lymphocytes (%) (Auto) 24.4 Monocytes (%) (Auto) 9.0 Eosinophils (%) (Auto) 1.2 Basophils (%) (Auto) 0.4 Neutrophils # (Auto) 6.0 Lymphocytes # (Auto) 2.3 Monocytes # (Auto) 0.8 Eosinophils # (Auto) 0.1 Basophils # (Auto) 0.0 CBC Comment AUTO DIFF Differential Comment AUTO DIFF CONFIRMED Blood Urea Nitrogen 9 Creatinine 0.78 Random Glucose 76 Total Protein 7.7 Albumin 3.9 Calcium Level 9.2 Alkaline Phosphatase 80 Aspartate Amino Transf (AST/SGOT) 31 Alanine Aminotransferase (ALT/SGPT) 33 Total Bilirubin 0.6 Sodium Level 139 Potassium Level 3.6 Chloride Level 103 Carbon Dioxide Level 28.1 Anion Gap 8 Estimat Glomerular Filtration Rate 103 Lactic Acid Level 0.8 Ethyl Alcohol Level LESS THAN 3 Urine Color LIGHT-YELLOW Urine Turbidity CLEAR Urine pH 5.5 Urine Specific [place] 1.005 Urine Protein NEG Urine Glucose (UA) NEG Urine Ketones NEG Urine Occult Blood NEG Urine Nitrite NEG Urine Bilirubin NEG Urine Urobilinogen LESS THAN 2.0 Urine Leukocyte Esterase NEG Urine RBC 1 Microscopic Urinalysis Comment CULT NOT INDICATED Urine Opiates Screen NEG Urine Barbiturates Screen NEG Urine Amphetamines Screen NEG Urine Benzodiazepines Screen NEG Urine Cocaine Screen NEG Urine Cannabinoids Screen NEG Date/Time Source Procedure Growth Status 07/15/17 17:00 Blood Peripheral Aerobic Blood Culture Pending Received 07/15/17 17:00 Blood Peripheral Anaerobic Blood Culture Pending Received (Brendon Bernard MD) Result Diagram: 07/15/17 1700 07/15/17 1700 Imaging Last Impressions Chest X-Ray 07/15/17 1611 Signed Impressions: Service Date/Time: Saturday, July 15, 2017 17:53 - CONCLUSION: No evidence of acute cardiopulmonary disease. Dhiraj Mejia MD Head CT 07/15/17 0000 Signed Impressions: Service Date/Time: Saturday, July 15, 2017 18:02 - CONCLUSION: No evidence of acute cardiopulmonary disease. Dhiraj Mejia MD (Brendon Bernard MD) Caprini VTE Risk Assessment Caprini VTE Risk Assessment: No/Low Risk (score <= 1) Caprini Risk Assessment Model Point Value = 1 Point Value = 2 Point Value = 3 Point Value = 5 Age 41-60 Minor surgery BMI > 25 kg/m2 Swollen legs Varicose veins or History of unexplained or recurrent spontaneous Oral contraceptives or hormone replacement Sepsis (< 1 month) Serious lung disease, including pneumonia (< 1 month) Abnormal pulmonary function Acute myocardial infarction Congestive heart failure (< 1 month) History of inflammatory bowel disease Medical patient at bed rest Age 61-74 Arthroscopic surgery Major open surgery (> 45 min) Laparoscopic surgery (> 45 min) Malignancy Confined to bed (> 72 hours) Immobilizing plaster cast Central venous access Age >= 75 History of VTE Family history of VTE Factor V Leiden Prothrombin [id number] Lupus anticoagulant Anticardiolipin antibodies Elevated serum homocysteine Heparin-induced thrombocytopenia Other congenital or acquired thrombophilia Stroke (< 1 month) Elective arthroplasty Hip, pelvis, or leg fracture Acute spinal cord injury (< 1 month) Prophylaxis Regimen Total Risk Factor Score Risk Level Prophylaxis Regimen 0-1 Low Early ambulation 2 Moderate Order ONE of the following: *Sequential Compression Device (SCD) *Heparin 5000 units SQ BID 3-4 Higher Order ONE of the following medications: *Heparin 5000 units SQ TID *Enoxaparin/Lovenox 40 mg SQ daily (WT < 150 kg, CrCl > 30 mL/min) *Enoxaparin/Lovenox 30 mg SQ daily (WT < 150 kg, CrCl > 10-29 mL/min) *Enoxaparin/Lovenox 30 mg SQ BID (WT < 150 kg, CrCl > 30 mL/min) AND/OR *Sequential Compression Device (SCD) 5 or more Highest Order ONE of the following medications: *Heparin 5000 units SQ TID (Preferred with Epidurals) *Enoxaparin/Lovenox 40 mg SQ daily (WT < 150 kg, CrCl > 30 mL/min) *Enoxaparin/Lovenox 30 mg SQ daily (WT < 150 kg, CrCl > 10-29 mL/min) *Enoxaparin/Lovenox 30 mg SQ BID (WT < 150 kg, CrCl > 30 mL/min) AND *Sequential Compression Device (SCD) (Brendon Bernard MD) Assessment and Plan Assessment and Plan 57-year-old male with history of depression/anxiety, chronic knee pain, presenting as a Wylie act due to altered mental status. Code Status Full Discussed Condition With Dr. Andersen (Brendon Bernard MD) Attending Attestation Patient seen and examined. Case reviewed and discussed with the resident team. Agree with plan of care as discussed with me and documented in the resident note. saw him on day of admission. he is a very poor historian (Jodi Luke MD) Problem List: (1) Altered mental status ICD Codes: R41.82 - Altered mental status, unspecified Status: Acute Plan: Patient presented with Wylie act from police due to unusual behavior. History of depression and mood disorder and on lorazepam and Effexor regularly. Has had past admissions due to alcohol intoxication and mood disorders. Alcohol level <3 Unknown baseline, was last seen by his PCP 2 months ago, and was reported to be doing well at that time. Alert and oriented. Labs all within normal limits. Vital signs stable. UDS normal. CT: No acute disease -Consult psychiatry-appreciate recs -Continue home Effexor -Continue scheduled home Ativan 2mg q8H -1:1 Sitter -Expanded Ob/psych drug screen -Monitor vitals/neuro status (2) Mood disorder ICD Codes: F39 - Episodic mood disorder Status: Chronic Plan: Continue home meds as above See plan above (3) Chronic knee pain ICD Codes: M25.569 - Chronic knee pain; G89.29 - Other chronic pain Status: Chronic Plan: Continue home gabapentin Continue home ibuprofen (4) FEN Status: Acute Plan: Fluids: Tolerating PO Electrolytes: wnl, monitor, replace PRN Nutrition: Regular diet DVT ppx: early ambulation (Brendon Bernard MD) Problem Qualifiers (1) Altered mental status: Qualified Codes: R41.82 - Altered mental status, unspecified (2) Chronic knee pain: Qualified Codes: M25.562 - Pain in left knee; G89.29 - Other chronic pain Brendon Bernard MD Jul 15, 2017 21:35 Jodi Luke MD Jul 21, 2017 21:10
[2017-07-15 22:02] VITALS: BP 123/77; PULSE 82; RESP 14; O2SAT 98
[2017-07-15] MEDS ORDERED: SODIUM CHLORIDE 0.9% FLUSH 10 ML FLUSH IV FLUSH PRN (22:15)
[2017-07-15] MEDS ORDERED: ONDANSETRON HCL 4 MG/2 ML VIAL IVP PRN (22:15)
[2017-07-15] MEDS ORDERED: SENNOSIDES 8.6 MG TAB PO PRN (22:15)
[2017-07-15] MEDS ORDERED: NALOXONE HCL 0.4 MG/ML AMP IV PUSH PRN (22:15)
[2017-07-15] MEDS ORDERED: ACETAMINOPHEN 325 MG TAB PO PRN (22:15)
[2017-07-15] MEDS ORDERED: BISACODYL 10 MG SUPP RECTAL PRN (22:15)
[2017-07-15] MEDS ORDERED: LACTULOSE SYRUP 20 GM/30 ML CUP PO PRN (22:15)
[2017-07-15] MEDS ORDERED: MAGNESIUM HYDROXIDE SUSP 30 ML CUP PO PRN (22:15)
[2017-07-15] MEDS: LORazepam 2 MG TAB PO SCH (22:44)
[2017-07-15 23:00] VITALS: O2SAT 97
[2017-07-16 02:04] VITALS: BP 114/73; PULSE 77; RESP 16; O2SAT 97
[2017-07-16 05:22] VITALS: BP 108/78; PULSE 88; RESP 16; O2SAT 97
[2017-07-16 05:39] LABS: AUTOMATED NEUTROPHIL # 3.4 TH/MM3 (1.8-7.7); BASOPHIL % 0.5 % (0.0-2.0); EOSINOPHIL # 0.1 TH/MM3 (0-0.4); EOSINOPHIL % 2.3 % (0.0-4.0); HEMATOCRIT 42.9 % (39.0-51.0); HEMOGLOBIN 15.1 GM/DL (13.0-17.0); LYMPH % 29.9 % (9.0-44.0); LYMPHOCYTE # 1.8 TH/MM3 (1.0-4.8); MEAN CELL VOLUME 95.1 FL (80.0-100.0); MEAN CORPUSCULAR HEMOGLOBIN 33.4 PG (27.0-34.0); MEAN CORPUSCULAR HGB CONC 35.1 % (32.0-36.0); MEAN PLATELET VOLUME 6.9 FL (7.0-11.0); MONO % 12.3 % (0.0-8.0); MONOCYTE # 0.8 TH/MM3 (0-0.9); PLATELET COUNT 297 TH/MM3 (150-450); RED BLOOD COUNT 4.51 MIL/MM3 (4.50-5.90); RED CELL DISTRIBUTION WIDTH 13.9 % (11.6-17.2); WHITE BLOOD COUNT 6.2 TH/MM3 (4.0-11.0)
[2017-07-16 06:08] LABS: BICARBONATE 30.8 MEQ/L (21.0-32.0); CALCIUM 9.6 MG/DL (8.5-10.1); CREATININE 0.76 MG/DL (0.60-1.30)
[2017-07-16] MEDS: LORazepam 2 MG TAB PO SCH (06:16)
[2017-07-16] MEDS: GABAPENTIN 300 MG CAP PO SCH ×2 (06:16→09:29)
[2017-07-16 08:14] VITALS: BP 117/64; PULSE 81; RESP 15; TEMP 97.5; O2SAT 96
[2017-07-16 08:31] VITALS: O2SAT 95
[2017-07-16] MEDS ORDERED: SODIUM CHLORIDE 0.9% FLUSH 10 ML FLUSH IV FLUSH SCH (09:00)
[2017-07-16] MEDS ORDERED: DOCUSATE SODIUM 50 MG/SENNA 8.6 MG TAB PO SCH (09:00)
[2017-07-16] MEDS ORDERED: VENLAFAXINE HCL XR 37.5 MG CAP PO SCH (09:00)
[2017-07-16] MEDS ORDERED: IBUPROFEN 800 MG TAB PO SCH (09:00)
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
--- NOTE | 2017-07-16 11:33 | PD.PSY.CON ---
Provisional Diagnosis Admission Date Jul 15, 2017 at 21:34 [place] I. Unspecified psychosis, panic disorder, major depressive disorder, history of alcohol use disorder [place] II. Deferred [place] III. No significant medical history [place] IV. Poor family and social support [place] V. 45 History of Present Illness Service Psychiatry Consult Requested By ER Reason for Consult Patient is under wylie act due to psychosis Primary Care Physician Homar Vaughan MD HPI The patient is a 57-year-old man, domiciled alone the [place], he is single, has 2 kids, unemployed, supported by [facility], he has psychiatric history of anxiety, depression, 3 previous psychiatric hospitalizations, he denies previous suicidal attempts, he is on Effexor 37.5 mg, gabapentin 300 mg 3 times daily, prescribed by PCP, no significant medical history, who presents yesterday to the emergency department under Wylie act from [facility] due to altered mental status. According to the reports, he was trying to walk into unknown residence today. Patient unable to provide much history, due to altered mental status. Consulted to psychiatry to address AMS. Psychiatric evaluation today the patient seems to be quite internally stimulated, with prominent flat affect and delay speech. Patient reports that yesterday he was not feeling right. He does not remember the reason of his hospitalization. He says that most probably he was taking alcohol, even the he has been denying alcohol use and his toxicology and alcohol level are negative. At times the patient disconnected with reality, start talking to himself and become disorganized, but he is redirectable. He denies suicidal and homicidal ideation, he denies visual and auditory hallucinations, even though the patient in the ER has been talking with people are no present in the room and has been talking to himself constantly. He denies the use of illegal drugs other than marijuana and alcohol occasionally. At this moment the patient is partially oriented, became irritable and cognitive assessment refusing to continue participating. Review of Systems Constitutional: DENIES: Diaphoretic episodes, Fatigue, Fever, Weight gain, Weight loss, Chills, Dizziness, Change in appetite, Night Sweats Endocrine: DENIES: Heat/cold intolerance, Polydipsia, Polyuria, Polyphagia Eyes: DENIES: Blurred vision, Diplopia, Eye inflammation, Eye pain, Vision loss , Photosensitivity, Double Vision Ears, nose, mouth, throat: DENIES: Tinnitus, Hearing loss, Vertigo, Nasal discharge, Oral lesions, Throat pain, Hoarseness, Ear Pain, Running Nose, Epistaxis, Sinus Pain, Toothache, Odynophagia Respiratory: DENIES: Apneas, Cough, Snoring, Wheezing, Hemoptysis, Sputum production, Shortness of breath Gastrointestinal: DENIES: Abdominal pain, Black stools, Bloody stools, Constipation, Diarrhea, Nausea, Vomiting, Difficulty Swallowing, Anorexia Genitourinary: DENIES: Sexual dysfunction, Urinary frequency, Urinary incontinence, Urgency, Hematuria, Dysuria, Nocturia, Penile Discharge, Testicular Pain, Testicular Swelling Musculoskeletal: DENIES: Joint pain, Muscle aches, Stiffness, Joint Swelling, Back pain, Neck pain Integumentary: DENIES: Abnormal pigmentation, Nail changes, Pruritus, Rash Hematologic/lymphatic: DENIES: Bruising, Lymphadenopathy Immunologic/allergic: DENIES: Eczema, Urticaria Neurologic: DENIES: Abnormal gait, Headache, Localized weakness, Paresthesias, Seizures, Speech Problems, Tremor, Poor Balance Psychiatric: COMPLAINS OF: Mood changes, Delusions, DENIES: Anxiety, Confusion , Depression, Hallucinations, Agitation, Suicidal Ideation, Homicidal Ideation Past Family Social History Coded Allergies: No Known Allergies (Unverified Allergy, Unknown, 07/15/17) Active Scripts Lorazepam (Lorazepam) 2 Mg Tab, 2 MG PO Q8H Y for ANXIETY, #90 TAB 0 Refills Prov:Julien Rick MD, R3 05/14/17 Venlafaxine ER 24 HR (Effexor XR 24 HR) 37.5 Mg Cap, 37.5 MG PO DAILY, #90 CAP 6 Refills Prov:Julien Rick MD, R3 05/14/17 Gabapentin (Gabapentin) 300 Mg Cap, 300 MG PO 5 TIMES A DAY, #150 CAP 6 Refills Prov:Julien Rick MD, R3 05/14/17 Ibuprofen (Ibuprofen) 800 Mg Tab, 800 MG PO DAILY for Arthritis Pain, #30 TAB 6 Refills Prov:Julien Rick MD, R3 12/23/16 Reported Medications Baclofen (Baclofen) 10 Mg Tab, 10 MG PO TID, TAB 0 Refills 07/15/17 Cyclobenzaprine (Flexeril) 10 Mg Tab, 10 MG PO TID for Muscle Spasm, #90 TAB 0 Refills 07/15/17 Hydrocodone-Acetaminophen (Hydrocodone-Acetaminophen) 10-325 mg Tab, 1 TAB PO QID, TAB 0 Refills 07/19/16 Current Medications Medications (Trade) Dose Ordered Sig/Valery Route Start Time Stop Time Status Last Admin (NS Flush) 2 ml UNSCH PRN IV FLUSH 07/15/17 22:15 (NS Flush) 2 ml BID IV FLUSH 07/16/17 09:00 07/16/17 09:30 (Tylenol) 650 mg Q4H PRN PO 07/15/17 22:15 (Zofran Inj) 4 mg Q6H PRN IVP 07/15/17 22:15 (Narcan Inj) 0.4 mg UNSCH PRN IV PUSH 07/15/17 22:15 (Loraine-Colace) 1 tab BID PO 07/16/17 09:00 (Milk Of Magnesia Liq) 30 ml Q12H PRN PO 07/15/17 22:15 (Senokot) 17.2 mg Q12H PRN PO 07/15/17 22:15 (Dulcolax Supp) 10 mg DAILY PRN RECTAL 07/15/17 22:15 (Lactulose Liq) 30 ml DAILY PRN PO 07/15/17 22:15 (Neurontin) 300 mg 5 TIMES A DAY PO 07/16/17 06:00 07/16/17 09:29 (Motrin) 800 mg DAILY PO 07/16/17 09:00 07/16/17 09:29 (Effexor Xr) 37.5 mg DAILY PO 07/16/17 09:00 07/16/17 09:29 (Ativan) 2 mg Q8HR PO 07/15/17 22:45 07/16/17 06:16 (SEROquel) 25 mg BID PO 07/16/17 11:15 UNV Family Psych History No family psychiatric history Social History Patient was born and raised in [place], he losing holy heel along, he is single, he has 2 sons, one is 28, another one is 30, unemployed, on SSI, his highest level of education is high risk Patient's Strengths (min. 2) Verbal communication Physical Exam No EPS, no withdrawal symptoms, no psychomotor agitation or retardation Vital Signs Vital Signs Date Time Temp Pulse Resp B/P (MAP) Pulse Ox O2 Delivery O2 Flow Rate FiO2 07/16/17 08:31 95 21 07/16/17 08:15 81 15 Room Air 07/16/17 08:14 97.5 117/64 (81) Lab Results Test 07/15/17 17:00 07/15/17 20:03 07/16/17 05:12 White Blood Count 9.3 TH/MM3 6.2 TH/MM3 Red Blood Count 4.24 MIL/MM3 4.51 MIL/MM3 Hemoglobin 14.7 GM/DL 15.1 GM/DL Hematocrit 40.7 % 42.9 % Mean Corpuscular Volume 96.0 FL 95.1 FL Mean Corpuscular Hemoglobin 34.8 PG 33.4 PG Mean Corpuscular Hemoglobin Concent 36.3 % 35.1 % Red Cell Distribution Width 14.2 % 13.9 % Platelet Count 267 TH/MM3 297 TH/MM3 Mean Platelet Volume 7.1 FL 6.9 FL Neutrophils (%) (Auto) 65.0 % 55.0 % Lymphocytes (%) (Auto) 24.4 % 29.9 % Monocytes (%) (Auto) 9.0 % 12.3 % Eosinophils (%) (Auto) 1.2 % 2.3 % Basophils (%) (Auto) 0.4 % 0.5 % Neutrophils # (Auto) 6.0 TH/MM3 3.4 TH/MM3 Lymphocytes # (Auto) 2.3 TH/MM3 1.8 TH/MM3 Monocytes # (Auto) 0.8 TH/MM3 0.8 TH/MM3 Eosinophils # (Auto) 0.1 TH/MM3 0.1 TH/MM3 Basophils # (Auto) 0.0 TH/MM3 0.0 TH/MM3 CBC Comment AUTO DIFF DIFF FINAL Differential Comment AUTO DIFF CONFIRMED Blood Urea Nitrogen 9 MG/DL 8 MG/DL Creatinine 0.78 MG/DL 0.76 MG/DL Random Glucose 76 MG/DL 77 MG/DL Total Protein 7.7 GM/DL Albumin 3.9 GM/DL Calcium Level 9.2 MG/DL 9.6 MG/DL Alkaline Phosphatase 80 U/L Aspartate Amino Transf (AST/SGOT) 31 U/L Alanine Aminotransferase (ALT/SGPT) 33 U/L Total Bilirubin 0.6 MG/DL Sodium Level 139 MEQ/L 142 MEQ/L Potassium Level 3.6 MEQ/L 3.8 MEQ/L Chloride Level 103 MEQ/L 104 MEQ/L Carbon Dioxide Level 28.1 MEQ/L 30.8 MEQ/L Anion Gap 8 MEQ/L 7 MEQ/L Estimat Glomerular Filtration Rate 103 ML/MIN 106 ML/MIN Lactic Acid Level 0.8 mmol/L Ethyl Alcohol Level LESS THAN 3 MG/DL Urine Color LIGHT-YELLOW Urine Turbidity CLEAR Urine pH 5.5 Urine Specific [place] 1.005 Urine Protein NEG mg/dL Urine Glucose (UA) NEG mg/dL Urine Ketones NEG mg/dL Urine Occult Blood NEG Urine Nitrite NEG Urine Bilirubin NEG Urine Urobilinogen LESS THAN 2.0 MG/DL Urine Leukocyte Esterase NEG Urine RBC 1 /hpf Microscopic Urinalysis Comment CULT NOT INDICATED Urine Opiates Screen NEG Urine Barbiturates Screen NEG Urine Amphetamines Screen NEG Urine Benzodiazepines Screen NEG Urine Cocaine Screen NEG Urine Cannabinoids Screen NEG Date/Time Source Procedure Growth Status 07/15/17 17:00 Blood Peripheral Aerobic Blood Culture - Preliminary NO GROWTH IN 1 DAY Resulted 07/15/17 17:00 Blood Peripheral Anaerobic Blood Culture - Preliminary NO GROWTH IN 1 DAY Resulted Mental Status Examination Appearance: Appropriate Consciousness: Alert Orientation: Person, Place Motor Activity: Normal gait Speech: Unremarkable Language: Adequate Fund of Knowledge: Adequate Attention and Concentration: Adequate Memory: Impaired Mood: Oppositional Affect: Irritable Thought Process & Associations: Disorganized Thought Content: Appropriate, Thought blocking, Delusional Hallucination Type: Visual Delusion Type: Bizarre, Paranoid Suicidal Ideation: No Suicidal Plan: No Suicidal Intention: No Homicidal Ideation: No Homicidal Plan: No Homicidal Intention: No Insight: Poor Judgment: Poor Assessment & Plan Problem List: (1) Unspecified psychosis ICD Codes: F29 - Unspecified psychosis not due to a substance or known physiological condition Assessment & Plan: Psychiatric evaluation today the patient presents internally preoccupied, speech delay, frequent disorganized speech and derailment, visible reality distortion, impaired ego boundaries, insightless visual hallucinations. Patient has been Wylie at due to disorganized behavior in his neighborhood and for being emotionally disturbed. He is partially oriented, he does not seem to have a prominent fluctuation of consciousness and attention deficit at this moment. The patient has history of anxiety, depression, alcohol and cannabis use disorder. At the moment of his arrival to the ER he was negative for alcohol. Due to the level of impairment in reality testing the patient could potentially be a danger to self and others. He will be admitted in psychiatry for stabilization and safety. First initial medical workup is negative, but medically induced psychosis versus substance withdrawal is still high in the differential. I will start Seroquel 25 mg twice daily for psychosis. Will restart Effexor 37.5, gabapentin 300 mg 3 times daily. Collateral information could not be reached at this moment. Transfer patient to psychiatry once medically appropriate. Assessment & Plan Estimated LOS: Hector Hall MD Jul 16, 2017 11:32
[2017-07-16] MEDS ORDERED: QUEtiapine FUMARATE 25 MG TAB PO SCH (12:00)
[2017-07-16 12:04] VITALS: BP 128/83; PULSE 81; RESP 16; O2SAT 97
--- NOTE | 2017-07-16 12:13 | HHI.DCPOC ---
Discharge Care Plan Diagnosis: (1) Altered mental status Goals to Promote Your Health * To prevent worsening of your condition and complications * To maintain your health at the optimal level Directions to Meet Your Goals Take your medications as prescribed Follow your dietary instruction Follow activity as directed Keep your appointments as scheduled Take your immunizations and boosters as scheduled If your symptoms worsen call your PCP, if no PCP go to Urgent Care Center or Emergency Room Smoking is Dangerous to Your Health. Avoid second hand smoke Call the 24-hour hour crisis hotline for domestic abuse at Kirsty Mueller MD, R3 Jul 16, 2017 12:13
--- NOTE | 2017-07-16 23:39 | EKG ---
Date Performed: 07/15/2017 Time Performed: 17:11:32 PTAGE: 57 years EKG: Sinus rhythm NORMAL ECG INTERPRETATION BASED ON A DEFAULT AGE OF 40 YEARS PREVIOUS TRACING : 01/06/2016 16.56 Since the previous tracing, no significant change not ed DOCTOR: Arsalan Ordoñez Interpretating Date/Time 07/16/2017 23:36:37
== END 2017-07-16 13:16 ==
LOC: NEPC 15:43 → NEDA 21:34 → NEDH 07-16 01:37
PROVIDERS: ADMIT Family Medicine; ATTEND Family Medicine
DX: R41.82 Altered mental status, unspecified (principal); R06.02 Shortness of breath; M25.562 Pain in left knee; G89.29 Other chronic pain; G93.40 Encephalopathy, unspecified; F41.9 Anxiety disorder, unspecified; F31.9 Bipolar disorder, unspecified; G62.9 Polyneuropathy, unspecified; M19.90 Unspecified osteoarthritis, unspecified site; F17.200 Nicotine dependence, unspecified, uncomplicated; Z79.899 Other long term (current) drug therapy
CPT/HCPCS: 70450; 71045; 80048; 80053; 80307; 81001; 83605; 85025; 87040; 93005; 96361; 96374; 99285; G0378; G0481; J2060; J7030

== ENCOUNTER 2017-07-16 12:58 | Inpatient (IN) | payer OTHER, MEDICARE ==
[~2017-07-16] VITALS: Ht 172.7 cm; Wt 71.4 kg
[~2017-07-16 12:58] MED LIST changes: +BACL10TA PO; +CYCL10TA PO; -LORA-475 PO
[2017-07-16 13:00] VITALS: BP 106/70; PULSE 101; RESP 16; TEMP 97.4; O2SAT 97
--- NOTE | 2017-07-16 14:15 | HHI.HP ---
Provisional Diagnosis Admission Date Jul 16, 2017 at 13:21 [place] I. Unspecified psychosis, Depression, anxiety, alcohol induced mood disorder Certification of Person's Competence To Provide Express and Informed Consent I have personally examined Quang Koroma , a person being served at [facility] on, Jul 16, 2017 14:12. Express and informed consent means consent voluntarily given in writing, by a competent person, after sufficient explanation and disclosure of the subject matter involved to enable the person to make a knowing and willful decision without any element of force, fraud, deceit, duress, or other form of constraint or coercion. This person is 18 years of age or older, is not now known to be incompetent to consent to treatment with a guardian advocate, and does not have a health care surrogate or proxy currently making medical treatment decisions. I have found this person to be one of the following: [] Competent to provide express and informed consent, as defined above, for voluntary admission to this facility and is competent to provide express and informed consent for treatment. He/she has the consistent capacity to make well reasoned, willful, and knowing decisions concerning his or her medical or mental health treatment. The person fully and consistently understands the purpose of the admission for examination/placement and is fully capable of personally exercising all rights assured [place] [] Incompetent to provide express and informed consent to voluntary admission, and this is incompetent to provide express and informed consent to treatment. The person must be transferred to involuntary status and a petition for a guardian advocate filed with the Circuit Court. [x] Refusing to provide express and informed consent to voluntary admission but is competent to provide express and informed consent for treatment. The person must be discharged or transferred to involuntary status. Form shall be completed within 24 hours of a person's arrival at the receiving facility and filed in the clinical record of each person: 1. Admitted on a voluntary basis 2. Permitted to provide express and informed consent to his/her own treatment 3. Allowed to transfer from involuntary to voluntary status 4. Prior to permitting a person to consent to his or her own treatment after having been previously found incompetent to consent to treatment. History of Present Illness Capacity: Has Capacity HPI The patient is a 57-year-old man, domiciled alone the [place], he is single, has 2 kids, unemployed, supported by [facility], he has psychiatric history of anxiety, depression, 3 previous psychiatric hospitalizations, he denies previous suicidal attempts, he is on Effexor 37.5 mg, gabapentin 300 mg 3 times daily, prescribed by PCP, no significant medical history, who presents yesterday to the emergency department under Wylie act from [facility] due to altered mental status. According to the reports, he was trying to walk into unknown residence today. Patient unable to provide much history, due to altered mental status. Consulted to psychiatry to address AMS. Psychiatric evaluation today the patient seems to be quite internally stimulated, with prominent flat affect and delay speech. Patient reports that yesterday he was not feeling right. He does not remember the reason of his hospitalization. He says that most probably he was taking alcohol, even the he has been denying alcohol use and his toxicology and alcohol level are negative. At times the patient disconnected with reality, start talking to himself and become disorganized, but he is redirectable. He denies suicidal and homicidal ideation, he denies visual and auditory hallucinations, even though the patient in the ER has been talking with people are no present in the room and has been talking to himself constantly. He denies the use of illegal drugs other than marijuana and alcohol occasionally. At this moment the patient is partially oriented, became irritable and cognitive assessment refusing to continue participating. Review of Systems Constitutional: DENIES: Diaphoretic episodes, Fatigue, Fever, Weight gain, Weight loss, Chills, Dizziness, Change in appetite, Night Sweats Endocrine: DENIES: Heat/cold intolerance, Polydipsia, Polyuria, Polyphagia Eyes: DENIES: Blurred vision, Diplopia, Eye inflammation, Eye pain, Vision loss , Photosensitivity, Double Vision Ears, nose, mouth, throat: DENIES: Tinnitus, Hearing loss, Vertigo, Nasal discharge, Oral lesions, Throat pain, Hoarseness, Ear Pain, Running Nose, Epistaxis, Sinus Pain, Toothache, Odynophagia Respiratory: DENIES: Apneas, Cough, Snoring, Wheezing, Hemoptysis, Sputum production, Shortness of breath Cardiovascular: DENIES: Chest pain, Palpitations, Syncope, Dyspnea on Exertion , PND, Lower Extremity Edema, Orthopnea, Claudication Gastrointestinal: DENIES: Abdominal pain, Black stools, Bloody stools, Constipation, Diarrhea, Nausea, Vomiting, Difficulty Swallowing, Anorexia Genitourinary: DENIES: Sexual dysfunction, Urinary frequency, Urinary incontinence, Urgency, Hematuria, Dysuria, Nocturia, Penile Discharge, Testicular Pain, Testicular Swelling Musculoskeletal: DENIES: Joint pain, Muscle aches, Stiffness, Joint Swelling, Back pain, Neck pain Integumentary: DENIES: Abnormal pigmentation, Nail changes, Pruritus, Rash Hematologic/lymphatic: DENIES: Bruising, Lymphadenopathy Immunologic/allergic: DENIES: Eczema, Urticaria Neurologic: DENIES: Abnormal gait, Headache, Localized weakness, Paresthesias, Seizures, Speech Problems, Tremor, Poor Balance Psychiatric: COMPLAINS OF: Hallucinations, Delusions, DENIES: Anxiety, Confusion, Mood changes, Depression, Agitation, Suicidal Ideation, Homicidal Ideation Substance Abuse History Drugs/Alcohol past 12 months alcohol occasionally Past Family Social History Coded Allergies: No Known Allergies (Unverified Allergy, Unknown, 07/15/17) Active Scripts Lorazepam (Lorazepam) 2 Mg Tab, 2 MG PO Q8H Y for ANXIETY, #90 TAB 0 Refills Prov:Julien Rick MD, R3 05/14/17 Venlafaxine ER 24 HR (Effexor XR 24 HR) 37.5 Mg Cap, 37.5 MG PO DAILY, #90 CAP 6 Refills Prov:Julien Rick MD, R3 05/14/17 Gabapentin (Gabapentin) 300 Mg Cap, 300 MG PO 5 TIMES A DAY, #150 CAP 6 Refills Prov:Julien Rick MD, R3 05/14/17 Ibuprofen (Ibuprofen) 800 Mg Tab, 800 MG PO DAILY for Arthritis Pain, #30 TAB 6 Refills Prov:Julien Rick MD, R3 12/23/16 Reported Medications Baclofen (Baclofen) 10 Mg Tab, 10 MG PO TID, TAB 0 Refills 07/15/17 Cyclobenzaprine (Flexeril) 10 Mg Tab, 10 MG PO TID for Muscle Spasm, #90 TAB 0 Refills 07/15/17 Hydrocodone-Acetaminophen (Hydrocodone-Acetaminophen) 10-325 mg Tab, 1 TAB PO QID, TAB 0 Refills 07/19/16 Social History Patient was born and raised in [place], he losing [place], he is single, he has 2 sons, one is 28, another one is 30, unemployed, on SSI, his highest level of education is high risk Mental Status Examination Appearance: Appropriate Consciousness: Alert Orientation: x4 Motor Activity: Normal gait Speech: Unremarkable Language: Adequate Fund of Knowledge: Adequate Attention and Concentration: Adequate Memory: Unremarkable Mood: Irritable Affect: Irritable Thought Process & Associations: Loose associations Thought Content: Bizarre thinking, Thought blocking Hallucination Type: Visual Delusion Type: None Suicidal Ideation: No Suicidal Plan: No Suicidal Intention: No Homicidal Ideation: No Homicidal Plan: No Homicidal Intention: No Insight: Poor Judgment: Poor Assessment & Plan Problem List: (1) Unspecified psychosis ICD Codes: F29 - Unspecified psychosis not due to a substance or known physiological condition Assessment & Plan: On Psychiatric evaluation today the patient presents internally preoccupied, speech delay, frequent disorganized speech and derailment, visible reality distortion, impaired ego boundaries, insightless visual hallucinations. Patient has been Wylie at due to disorganized behavior in his neighborhood and for being emotionally disturbed. He is partially oriented, he does not seem to have a prominent fluctuation of consciousness and attention deficit at this moment. The patient has history of anxiety, depression, alcohol and cannabis use disorder. At the moment of his arrival to the ER he was negative for alcohol. Due to the level of impairment in reality testing the patient could potentially be a danger to self and others. He will be admitted in psychiatry for stabilization and safety. First initial medical workup is negative, but medically induced psychosis versus substance withdrawal is still high in the differential. I will start Seroquel 25 mg twice daily for psychosis. Will restart Effexor 37.5, gabapentin 300 mg 3 times daily. Collateral information could not be reached at this moment. Transfer patient to psychiatry once medically appropriate. Assessment & Plan Estimated LOS: Hector Hall MD Jul 16, 2017 14:15
[2017-07-16] MEDS: GABAPENTIN 300 MG CAP PO SCH ×2 (17:04→21:55)
[2017-07-16] MEDS ORDERED: CYCLOBENZAPRINE HCL 10 MG TAB PO SCH (18:00)
[2017-07-16] MEDS ORDERED: BACLOFEN 10 MG TAB PO SCH (18:00)
[2017-07-16 18:06] VITALS: BP 111/67; PULSE 104; RESP 18; TEMP 98.1
[2017-07-17 05:09] VITALS: BP 111/70; PULSE 74; RESP 18; TEMP 97.3
[2017-07-17 05:10] VITALS: BP 111/70; PULSE 74
[2017-07-17] MEDS: GABAPENTIN 300 MG CAP PO SCH ×5 (05:55→22:36)
[2017-07-17] MEDS: QUEtiapine FUMARATE 25 MG TAB PO SCH ×3 (08:04→20:35)
[2017-07-17] MEDS: VENLAFAXINE HCL XR 37.5 MG CAP PO SCH (08:04)
[2017-07-17] MEDS: IBUPROFEN 800 MG TAB PO SCH (08:45)
[2017-07-17] MEDS: NICOTINE 21 MG/24 HR PATCH T-DERMAL SCH (09:47)
[2017-07-17] MEDS ORDERED: hydrOXYzine HCL 50 MG TAB PO PRN (12:45)
--- NOTE | 2017-07-17 12:46 | HHI.PYPN ---
Subjective Remarks Patient initially admitted by Dr. Isabel, his H&P reviewed and agreed with, I have finished the initial psychiatric at patient template orders, and also review the med reconciliation. Patient seen by me today he is allergic fairly well oriented calm stating he feels better more focused today. He does denies suicidality today. Is somewhat vague about voices today. He says his anxious because his been told by his landlord that he has to vacate his apartment but not until February 2018. Signs do show some ability to process this appropriately. At this time patient longer meets Wylie act criteria I'll lift Wylie act allow to sign voluntary will continue to work with him regarding possible placement opportunities Review of Systems Except as stated in HPI: all other systems reviewed are Neg Mental Status Examination Appearance: Appropriate Consciousness: Alert Orientation: x4 Motor Activity: Normal gait Speech: Unremarkable Language: Adequate Fund of Knowledge: Adequate Attention and Concentration: Adequate Memory: Unremarkable Mood: Irritable Affect: Irritable Thought Process & Associations: Loose associations Thought Content: Bizarre thinking, Thought blocking Hallucination Type: Visual Delusion Type: None Suicidal Ideation: No Suicidal Plan: No Suicidal Intention: No Homicidal Ideation: No Homicidal Plan: No Homicidal Intention: No Insight: Poor Judgment: Poor Results Vitals/IOs Vital Signs Date Time Temp Pulse Resp B/P (MAP) Pulse Ox O2 Delivery O2 Flow Rate FiO2 07/17/17 05:09 97.3 74 18 111/70 (84) 07/16/17 13:00 97 Assessment & Plan Problem List: (1) Unspecified psychosis ICD Codes: F29 - Unspecified psychosis not due to a substance or known physiological condition (2) Adjustment disorder with mixed disturbance of emotions and conduct ICD Codes: F43.25 - Adjustment disorder with mixed disturbance of emotions and conduct Assessment & Plan Estimated LOS: days patient continues depressed anxious the psychosis is resolving somewhat. Will continue medications will adjust the Seroquel to the afternoon and evening. Justification for Cont. Inpt. At this time patient will decompensate a placed on lower left lobe care Discharge Planning To be determined Request HC Surrog/Guard Advoc?: No Dhiraj Navarro MD Jul 17, 2017 12:45
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
[2017-07-17] MEDS: ACETAMINOPHEN/HYDROcodone 325 MG/10 MG TAB PO PRN ×2 (13:37→20:36)
[2017-07-17 18:05] VITALS: BP 113/56; PULSE 83; RESP 18; TEMP 98.3; O2SAT 96
[2017-07-17] MEDS ORDERED: REMOVE OLD NICODERM (NICOTINE) PATCH T-DERMAL SCH (21:00)
[2017-07-18 05:00] VITALS: BP 109/59; PULSE 84; RESP 16; TEMP 98.1
[2017-07-18] MEDS: GABAPENTIN 300 MG CAP PO SCH ×2 (06:31→08:52)
[2017-07-18] MEDS: ACETAMINOPHEN/HYDROcodone 325 MG/10 MG TAB PO PRN ×2 (06:31→11:48)
[2017-07-18] MEDS: VENLAFAXINE HCL XR 37.5 MG CAP PO SCH (08:52)
[2017-07-18] MEDS: IBUPROFEN 800 MG TAB PO SCH (08:52)
[2017-07-18] MEDS: NICOTINE 21 MG/24 HR PATCH T-DERMAL SCH (08:52)
[2017-07-18] MEDS ORDERED: HYDR-3583 PO (10:27)
[2017-07-18] MEDS ORDERED: SERO25TA PO (10:27)
[2017-07-18] MEDS ORDERED: VENL1CAP38 PO (10:27)
[2017-07-18] MEDS ORDERED: GABA300C5 PO (10:27)
[2017-07-18] MEDS ORDERED: IBUP1TAB7 PO (10:27)
--- NOTE | 2017-07-18 10:42 | HHI.DS ---
Psychiatry Discharge Summary Inpatient Psychiatric care?: Yes Advance Directive: No Reason Not Provided: doesnt have one Mental Health AdvanceDirective: No Health Care Proxy: No Admission Admission Date Jul 16, 2017 at 13:21 Admission Diagnosis: (1) Adjustment disorder with mixed disturbance of emotions and conduct ICD Code: F43.25 - Adjustment disorder with mixed disturbance of emotions and conduct Brief History The patient is a 57-year-old man, domiciled alone the [place], he is single, has 2 kids, unemployed, supported by [facility], he has psychiatric history of anxiety, depression, 3 previous psychiatric hospitalizations, he denies previous suicidal attempts, he is on Effexor 37.5 mg, gabapentin 300 mg 3 times daily, prescribed by PCP, no significant medical history, who presents yesterday to the emergency department under [facility] act from [facility] due to altered mental status. According to the reports, he was trying to walk into unknown residence today. Patient unable to provide much history, due to altered mental status. Consulted to psychiatry to address AMS. Psychiatric evaluation today the patient seems to be quite internally stimulated, with prominent flat affect and delay speech. Patient reports that yesterday he was not feeling right. He does not remember the reason of his hospitalization. He says that most probably he was taking alcohol, even the he has been denying alcohol use and his toxicology and alcohol level are negative. At times the patient disconnected with reality, start talking to himself and become disorganized, but he is redirectable. He denies suicidal and homicidal ideation, he denies visual and auditory hallucinations, even though the patient in the ER has been talking with people are no present in the room and has been talking to himself constantly. He denies the use of illegal drugs other than marijuana and alcohol occasionally. At this moment the patient is partially oriented, became irritable and cognitive assessment refusing to continue participating. Tobacco Use In Past 30 Days: 5 or More Cigarettes/Day Alcohol Use: Monthly or Less Hospital Course Patient showed rapid improvement in his mood and is functioning. Slept well from the of admission. His vague psychotic features resolved rapidly also. Patient did show some anticipatory anxiety related to his being notified of losing his apartment next February 2018. He has been able to process that now. Patient did sign an ABIMAEL are yesterday. Today patient seen he is calm cooperative states he feels is better and is now able to address his issues related to relocation. He denies suicidality homicidality voices or visions. Is been compliant with his medication. Thus patient to be discharged today Rx 1 month to follow-up with the [facility] residents outpatient Results Blood Pressure 109 / 59 Vital Signs Date Time Temp Pulse Resp B/P (MAP) Pulse Ox O2 Delivery O2 Flow Rate FiO2 07/18/17 05:00 98.1 84 16 109/59 (76) 07/17/17 18:05 96 Urine toxicology negative Summary of Procedures None done Pending results at discharge: No Medications # of Antipsychotic meds at D/C: 1 Approp Antipsych med options 1 - Minimum of three failed multiple trials of monotherapy. 2 - Documented plan to taper to monotherapy due to previous use of multiple meds OR cross-taper in progress at D/C. 3 - Documentation of augmentation of Clozapine. 4 - Justification other than those listed in allowable values 1-3, document here : Discharge Discharge Date: Jul 18, 2017 Discharge Diagnosis: (1) Adjustment disorder with mixed disturbance of emotions and conduct Diagnosis: Principal ICD Code: F43.25 - Adjustment disorder with mixed disturbance of emotions and conduct Pt Condition on Discharge: Stable Discharge Disposition: Discharge Home Discharge Instructions Diet Instructions: As Tolerated, No Restrictions Activities you can perform: Regular-No Restrictions Scheduled Appointment: [facility] Appointment Date: Jul 25, 2017 Appointment Time: 1:30pm Discharge Time > 30 minutes Mental Status Examination Appearance: Appropriate Consciousness: Alert Orientation: x4 Motor Activity: Normal gait Speech: Unremarkable Language: Adequate Fund of Knowledge: Adequate Attention and Concentration: Adequate Memory: Unremarkable Mood: Irritable Affect: Irritable Thought Process & Associations: Loose associations Thought Content: Bizarre thinking, Thought blocking Hallucination Type: Visual Delusion Type: None Suicidal Ideation: No Suicidal Plan: No Suicidal Intention: No Homicidal Ideation: No Homicidal Plan: No Homicidal Intention: No Insight: Poor Judgment: Poor Discharge/Advance Care Plan Health Problems: (1) Unspecified psychosis (2) Adjustment disorder with mixed disturbance of emotions and conduct Goals to promote your health * To prevent worsening of your condition and complications * To maintain your health at the optimal level Directions to meet your goals Take your medications as prescribed Follow your dietary instruction Follow activity as directed Keep your appointments as scheduled Take your immunizations and boosters as scheduled If your symptoms worsen call your PCP, if no PCP go to Urgent Care Center or Emergency Room For 25/11 questions related to your inpatient stay or results of tests pending at discharge, please contact Dr. Dhiraj Navarro at Smoking is Dangerous to Your Health. Avoid second hand smoking Dhiraj Navarro MD Jul 18, 2017 10:42
[2017-07-18] MEDS: QUEtiapine FUMARATE 25 MG TAB PO SCH (12:00)
== END 2017-07-18 12:35 | disposition home or self-care (01) | DRG 882 ==
LOC: H250 13:21
PROVIDERS: ADMIT Psychiatry & Neurology Psychiatry; ATTEND Psychiatry & Neurology Psychiatry
DX: F43.25 Adjustment disorder with mixed disturbance of emotions and conduct (principal); G62.9 Polyneuropathy, unspecified; F32.9 Major depressive disorder, single episode, unspecified; F29 Unspecified psychosis not due to a substance or known physiological condition; F41.9 Anxiety disorder, unspecified; R41.82 Altered mental status, unspecified; R45.4 Irritability and anger; M25.569 Pain in unspecified knee; M54.9 Dorsalgia, unspecified; M54.2 Cervicalgia; G89.29 Other chronic pain; F17.210 Nicotine dependence, cigarettes, uncomplicated; F12.90 Cannabis use, unspecified, uncomplicated; Z79.899 Other long term (current) drug therapy

== ENCOUNTER 2018-01-19 11:29 | Inpatient (IN) ==
[2018-01-19 12:26] LABS: Baso # (Auto) 0.1 th/mm3 (0.0-0.2); Baso % (Auto) 0.3 % (0.0-2.0); Eos % (Auto) 0.1 % (0.0-4.0); Hematocrit 41.4 % (39.0-51.0); Lymph # (Auto) 1.7 th/mm3 (1.0-4.8); Lymph % (Auto) 9.5 % (9.0-44.0); Mean Corpuscular HGB Conc 33.8 % (32.0-36.0); Mean Corpuscular Hemoglobin 33.3 pg (27.0-34.0); Mean Corpuscular Volume 98.7 fL (80.0-100.0); Mean Platelet Volume 7.1 fL (7.0-11.0); Mono # (Auto) 1.5 th/mm3 (0.0-0.9); Mono % (Auto) 8.3 % (0.0-8.0); Neut # (Auto) 14.8 th/mm3 (1.8-7.7); Neut % (Auto) 81.8 % (16.0-70.0); Platelet Count 344 th/mm3 (150-450); Red Cell Distribution Width 13.5 % (11.6-17.2); White Blood Count 18.1 th/mm3 (4.0-11.0)
[2018-01-19] MEDS ORDERED: Piperacil/Tazo 4.5 GM Premix 4.5 GM/100 ML BAG IV.SIG ONE (12:28)
[2018-01-19] MEDS ORDERED: Ibuprofen 600 MG Tablet PO ONE (12:28)
[2018-01-19] MEDS ORDERED: Vancomycin Inj 1 GM/200 ML PIGGYBACK IV.SIG ONE (12:28)
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
--- NOTE | 2018-01-19 12:42 | XR ---
EXAM DATE: 01/19/2018 12:35 PM EDT AGE/SEX: 57 years / Male INDICATIONS: Fever. CLINICAL DATA: This is the patient's initial encounter. Patient reports that signs and symptoms have been present for 1 day and indicates a pain score of Nonresponsive. MEDICAL/SURGICAL HISTORY: . seizures . unknown [place] [facility] [place]. . FINDINGS: Mild streaky density is noted within the left lung base consistent with possible developing infiltrat e. Clinical correlation is recommended. The heart is stable. The pulmonary vascular pattern is normal . Hardware is again noted within the left humerus and is stable. Old fractures involving the clavicle s are unchanged. CONCLUSION: Mild streaky density within the left lung base consistent with possible developing infiltrate. Clinic al correlation is recommended. Electronically signed by: David Mo MD 01/19/2018 12:41 PM EDT
[2018-01-19] MEDS ORDERED: Azithromycin Inj 500 MG in Sodium Chlor 0.9% Inj 250 ML IV.SIG ONE (12:44)
[2018-01-19 12:54] LABS: Alanine Aminotransferase 22 U/L (12-78); Albumin 3.3 g/dL (3.4-5.0); Alkaline Phosphatase 67 U/L (45-117); Anion Gap 8 meq/L (5-15); Aspartate Aminotransferase 29 U/L (15-37); Blood Urea Nitrogen 21 mg/dL (7-18); Calcium 8.4 mg/dL (8.5-10.1); Carbon Dioxide 26.9 meq/L (21.0-32.0); Chloride 100 meq/L (98-107); Glomerular Filtration Rate 80 mL/min (>89); Glucose,Random 92 mg/dL (74-106); Sodium 135 meq/L (136-145); Total Protein 7.1 g/dL (6.4-8.2)
[2018-01-19 12:57] LABS: Potassium 2.8 meq/L (3.5-5.1)
[2018-01-19] MEDS ORDERED: KCL 20 mEq/NACL 0.45% Inj 1,000 ML IV.CONT ONE ×2 (12:59→23:30)
[2018-01-19] MEDS ORDERED: Vancomycin Inj 1,000 MG in Sodium Chlor 0.9% Inj 250 ML IV.SIG ONE (13:00)
[2018-01-19] MEDS ORDERED: Sod Chloride 0.9% Inj 1,000 ML IV.SIG SCH (13:15)
[2018-01-19] MEDS ORDERED: Bisacodyl 10 MG Supp RECTAL PRN (14:24)
[2018-01-19] MEDS ORDERED: Acetaminophen 325 MG Tablet PO PRN (14:24)
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
[2018-01-19] MEDS: Sodium Chloride 0.45 % Inj 1,000 ML IV.CONT SCH (16:48)
[2018-01-19] MEDS: Heparin - SQ 10,000 UNITS/ML Vial SQ SCH (18:16)
[2018-01-19 19:58] LABS: Bacteria,Urine Rare /hpf; Bilirubin,Urine Negative (Negative); Clarity,Urine Clear (Clear); Color,Urine Yellow (Yellw/Straw); Glucose,Urine (UA) Negative (Negative); Hyaline Casts,Urine 1 /lpf (0-3); Leukocyte Esterase,Urine Negative (Negative); Nitrite,Urine Negative (Negative); Specific Gravity,Urine 1.015 (1.002-1.035)
[2018-01-19 20:04] LABS: Amphetamine Screen,Urine Neg (Neg); Barbiturate Screen,Urine Neg (Neg); Cannabinoid Screen,Urine Neg (Neg); Cocaine Screen,Urine Neg (Neg)
[2018-01-19] MEDS: Senna/Docusate Sodium 8.6/50 MG Tablet PO SCH (20:05)
[2018-01-19 20:06] LABS: Opiate Screen,Urine Pos (Neg)
[2018-01-20] MEDS: Sodium Chloride 0.45 % Inj 1,000 ML IV.CONT SCH ×3 (04:30→22:58)
[2018-01-20] MEDS: Heparin - SQ 10,000 UNITS/ML Vial SQ SCH ×2 (05:22→16:00)
[2018-01-20 08:08] LABS: Baso # (Auto) 0.1 th/mm3 (0.0-0.2); Baso % (Auto) 0.3 % (0.0-2.0); Eos % (Auto) 0.1 % (0.0-4.0); Hematocrit 37.9 % (39.0-51.0); Hemoglobin 12.6 gm/dL (13.0-17.0); Lymph # (Auto) 1.5 th/mm3 (1.0-4.8); Lymph % (Auto) 7.7 % (9.0-44.0); Mean Corpuscular HGB Conc 33.2 % (32.0-36.0); Mean Corpuscular Hemoglobin 32.8 pg (27.0-34.0); Mean Corpuscular Volume 98.6 fL (80.0-100.0); Mean Platelet Volume 7.6 fL (7.0-11.0); Mono # (Auto) 1.6 th/mm3 (0.0-0.9); Mono % (Auto) 8.1 % (0.0-8.0); Neut # (Auto) 16.3 th/mm3 (1.8-7.7); Neut % (Auto) 83.8 % (16.0-70.0); Platelet Count 331 th/mm3 (150-450); Red Blood Count 3.85 mil/mm3 (4.50-5.90); Red Cell Distribution Width 13.4 % (11.6-17.2); White Blood Count 19.5 th/mm3 (4.0-11.0)
--- NOTE | 2018-01-20 08:11 | ECG ---
Date Performed: 01/19/2018 Time Performed: 13:21:32 PTAGE: 57 years EKG: SINUS TACHYCARDIA POSSIBLE RIGHT ATRIAL ENLARGEMENT MINIMAL ST DEPRESSION ABNORMAL RHYTHM E CG Compared to PREVIOUS TRACING the patient is now tachycardic PREVIOUS TRACIN07/15/2017 17.11 DOCTOR: Emelyn Bonner Interpretating Date/Time 01/20/2018 08:09:57
[2018-01-20 08:59] LABS: Anion Gap 9 meq/L (5-15); Blood Urea Nitrogen 9 mg/dL (7-18); Calcium 8.3 mg/dL (8.5-10.1); Carbon Dioxide 25.1 meq/L (21.0-32.0); Chloride 108 meq/L (98-107); Glomerular Filtration Rate Greater Than 89 mL/min (>89); Glucose,Random 80 mg/dL (74-106); Magnesium 1.9 mg/dL (1.5-2.5); Potassium 3.4 meq/L (3.5-5.1); Sodium 142 meq/L (136-145)
[2018-01-20] MEDS: Ibuprofen 600 MG Tablet PO PRN (10:11)
[2018-01-20] MEDS: Senna/Docusate Sodium 8.6/50 MG Tablet PO SCH ×2 (10:13→20:51)
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
[2018-01-20] MEDS ORDERED: Potassium Chloride 25 MEQ Effervescent Tablet PO ONE (13:00)
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
[2018-01-20] MEDS: Azithromycin Inj 250 MG in Sodium Chlor 0.9% Inj 250 ML IV.SIG SCH (16:30)
[2018-01-21] MEDS: Ibuprofen 600 MG Tablet PO PRN ×3 (01:05→22:01)
[2018-01-21] MEDS: Heparin - SQ 10,000 UNITS/ML Vial SQ SCH ×2 (03:41→16:49)
[2018-01-21 06:14] LABS: Baso % (Auto) 0.3 % (0.0-2.0); Eos # (Auto) 0.1 th/mm3 (0.0-0.4); Eos % (Auto) 0.8 % (0.0-4.0); Hematocrit 37.3 % (39.0-51.0); Hemoglobin 12.6 gm/dL (13.0-17.0); Lymph % (Auto) 7.4 % (9.0-44.0); Mean Corpuscular HGB Conc 33.8 % (32.0-36.0); Mean Corpuscular Hemoglobin 33.4 pg (27.0-34.0); Mean Corpuscular Volume 98.9 fL (80.0-100.0); Mono # (Auto) 0.8 th/mm3 (0.0-0.9); Mono % (Auto) 5.7 % (0.0-8.0); Neut % (Auto) 85.8 % (16.0-70.0); Platelet Count 316 th/mm3 (150-450); Red Blood Count 3.77 mil/mm3 (4.50-5.90); Red Cell Distribution Width 13.5 % (11.6-17.2)
[2018-01-21 06:30] LABS: Anion Gap 8 meq/L (5-15); Blood Urea Nitrogen 10 mg/dL (7-18); Calcium 8.8 mg/dL (8.5-10.1); Carbon Dioxide 26.4 meq/L (21.0-32.0); Chloride 108 meq/L (98-107); Glomerular Filtration Rate Greater Than 89 mL/min (>89); Glucose,Random 79 mg/dL (74-106); Magnesium 1.9 mg/dL (1.5-2.5); Potassium 3.7 meq/L (3.5-5.1); Sodium 142 meq/L (136-145)
[2018-01-21] MEDS: Senna/Docusate Sodium 8.6/50 MG Tablet PO SCH ×2 (09:26→20:38)
[2018-01-21] MEDS: Sodium Chloride 0.45 % Inj 1,000 ML IV.CONT SCH (09:31)
[2018-01-21] MEDS: LORazepam 1 MG Tablet PO PRN (10:00)
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
[2018-01-21] MEDS: Azithromycin Inj 250 MG in Sodium Chlor 0.9% Inj 250 ML IV.SIG SCH (16:49)
[2018-01-21] MEDS: levoFLOXacin 750 MG Tablet PO SCH (20:37)
[2018-01-22] MEDS: Heparin - SQ 10,000 UNITS/ML Vial SQ SCH ×2 (04:02→16:24)
[2018-01-22 07:09] LABS: Baso # (Auto) 0.1 th/mm3 (0.0-0.2); Baso % (Auto) 0.6 % (0.0-2.0); Eos % (Auto) 0.4 % (0.0-4.0); Hematocrit 36.9 % (39.0-51.0); Hemoglobin 12.8 gm/dL (13.0-17.0); Lymph # (Auto) 1.8 th/mm3 (1.0-4.8); Lymph % (Auto) 18.7 % (9.0-44.0); Mean Corpuscular HGB Conc 34.7 % (32.0-36.0); Mean Corpuscular Hemoglobin 33.6 pg (27.0-34.0); Mean Corpuscular Volume 96.9 fL (80.0-100.0); Mean Platelet Volume 8.1 fL (7.0-11.0); Mono # (Auto) 0.9 th/mm3 (0.0-0.9); Mono % (Auto) 9.9 % (0.0-8.0); Neut # (Auto) 6.7 th/mm3 (1.8-7.7); Neut % (Auto) 70.4 % (16.0-70.0); Platelet Count 390 th/mm3 (150-450); Red Blood Count 3.81 mil/mm3 (4.50-5.90); Red Cell Distribution Width 13.4 % (11.6-17.2); White Blood Count 9.5 th/mm3 (4.0-11.0)
[2018-01-22 07:35] LABS: Anion Gap 11 meq/L (5-15); Blood Urea Nitrogen 6 mg/dL (7-18); Calcium 9.1 mg/dL (8.5-10.1); Carbon Dioxide 26.3 meq/L (21.0-32.0); Chloride 107 meq/L (98-107); Glomerular Filtration Rate Greater Than 89 mL/min (>89); Glucose,Random 75 mg/dL (74-106); Magnesium 1.8 mg/dL (1.5-2.5); Potassium 3.6 meq/L (3.5-5.1); Sodium 144 meq/L (136-145)
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
[2018-01-22] MEDS: levoFLOXacin 750 MG Tablet PO SCH (10:12)
[2018-01-22] MEDS: Senna/Docusate Sodium 8.6/50 MG Tablet PO SCH ×2 (10:12→20:00)
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
[2018-01-22] MEDS: LORazepam 1 MG Tablet PO PRN (19:54)
[2018-01-23] MEDS: Heparin - SQ 10,000 UNITS/ML Vial SQ SCH (03:37)
[2018-01-23] MEDS: Senna/Docusate Sodium 8.6/50 MG Tablet PO SCH (08:23)
[2018-01-23] MEDS: levoFLOXacin 750 MG Tablet PO SCH (08:23)
[2018-01-23 09:21] VITALS: RESP 17
[2018-01-23 14:08] VITALS: BP 116/75; PULSE 84; TEMP 97.8; O2SAT 95
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
== END 2018-01-23 14:11 | disposition home or self-care (01) ==
LOC: NEPE 11:29 → NEDA 14:10 → N04 17:00
PROVIDERS: ADMIT Hospitalist; ATTEND Hospitalist

== ENCOUNTER 2018-01-23 23:27 | Inpatient (IN) ==
[2018-01-23] MEDS ORDERED: ceFAZolin 2 GM Premix Inj 2 GM/50 ML PIGGYBACK IV.SIG ONE (23:35)
[2018-01-23] MEDS ORDERED: Diphtheria/Tetanus/Pertussis Vaccine Inj 0.5 ML Syringe IM ONE (23:35)
[2018-01-23 23:54] LABS: Baso # (Auto) 0.1 th/mm3 (0.0-0.2); Baso % (Auto) 0.9 % (0.0-2.0); Eos % (Auto) 0.2 % (0.0-4.0); Hematocrit 35.1 % (39.0-51.0); Hemoglobin 11.7 gm/dL (13.0-17.0); Lymph # (Auto) 3.4 th/mm3 (1.0-4.8); Lymph % (Auto) 26.3 % (9.0-44.0); Mean Corpuscular HGB Conc 33.5 % (32.0-36.0); Mean Corpuscular Hemoglobin 32.6 pg (27.0-34.0); Mean Corpuscular Volume 97.5 fL (80.0-100.0); Mean Platelet Volume 7.3 fL (7.0-11.0); Mono % (Auto) 7.9 % (0.0-8.0); Neut # (Auto) 8.3 th/mm3 (1.8-7.7); Neut % (Auto) 64.7 % (16.0-70.0); Platelet Count 369 th/mm3 (150-450); Red Blood Count 3.59 mil/mm3 (4.50-5.90); Red Cell Distribution Width 13.3 % (11.6-17.2); White Blood Count 12.8 th/mm3 (4.0-11.0)
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
[2018-01-24 00:06] LABS: Activated Partial Thrombo Time 29.3 sec (24.3-30.1); INR 1.1 Ratio; Prothrombin Time 11.5 sec (9.8-11.6)
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
[2018-01-24 00:11] LABS: Anion Gap 14 meq/L (5-15); Blood Urea Nitrogen 18 mg/dL (7-18); Calcium 8.8 mg/dL (8.5-10.1); Carbon Dioxide 24.9 meq/L (21.0-32.0); Chloride 103 meq/L (98-107); Glomerular Filtration Rate 20 mL/min (>89); Glucose,Random 130 mg/dL (74-106); Sodium 142 meq/L (136-145)
--- NOTE | 2018-01-24 00:12 | ED ---
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 Patient Discharge Condition Condition: Serious Discharge Details Diagnosis: Subdural hemorrhage, TBI (traumatic brain injury) Physicians Team ED Provider: Oli Ward Primary Care Provider: UNKNOWN, Attending Provider: Jonathan Rios Other Providers: Jake Tovar ; Roscoe Ivey ; Jonathan Rios ; Billy Holt ; [employer] ; Dio Chaudhry ; Armida Bowden ; Mitchel Wakefield ; Melinda Duran ; Jay Escalante ; Sameer Joshi ; Mack Snyder ; Janak Salinas ; [facility]ency ; [facility],Insurance Discharge Interventions Interventions: ED Discharge Assessment Last Done: 01/24/18 02:19 Status ED Status: Left Department Discharge Information Discharge Date/Time: 01/24/18 02:19
[2018-01-24 00:14] LABS: Potassium 5.7 meq/L (3.5-5.1)
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
[2018-01-24] MEDS ORDERED: Acetaminophen 325 MG Tablet PO PRN (00:28)
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
[2018-01-24 01:46] LABS: ABG Base Excess -3.7 mmol/L (-2-2); ABG PCO2 32 mmHg (38-42); ABG PO2 288 mmHg (61-120)
[2018-01-24] MEDS: Sod Chloride 0.9% Inj 1,000 ML IV.CONT SCH ×4 (02:02→21:05)
[2018-01-24] MEDS ORDERED: Chlorhexidine Gluconate 2% 1 Pack (2 Cloths) TOPICAL PRN (04:00)
[2018-01-24] MEDS: Multivitamin Inj 10 ML, Thiamine Inj 100 MG, Folic Acid Inj 1 MG in Sodium Chlor 0.9% I... IV.SIG SCH (04:03)
[2018-01-24] MEDS: Chlorhexidine Gluconate 2% 1 Pack (2 Cloths) TOPICAL SCH (04:03)
[2018-01-24] MEDS: Pantoprazole Inj 40 MG Vial IV.PUSH SCH (04:03)
[2018-01-24 04:18] LABS: Baso % (Auto) 0.1 % (0.0-2.0); Hematocrit 35.6 % (39.0-51.0); Hemoglobin 12.4 gm/dL (13.0-17.0); Lymph # (Auto) 0.6 th/mm3 (1.0-4.8); Lymph % (Auto) 3.6 % (9.0-44.0); Mean Corpuscular HGB Conc 34.8 % (32.0-36.0); Mean Corpuscular Hemoglobin 31.9 pg (27.0-34.0); Mean Corpuscular Volume 91.6 fL (80.0-100.0); Mono # (Auto) 1.7 th/mm3 (0.0-0.9); Neut # (Auto) 14.5 th/mm3 (1.8-7.7); Neut % (Auto) 86.3 % (16.0-70.0); Platelet Count 255 th/mm3 (150-450); Red Blood Count 3.89 mil/mm3 (4.50-5.90); Red Cell Distribution Width 16.2 % (11.6-17.2); White Blood Count 16.9 th/mm3 (4.0-11.0)
[2018-01-24 04:28] LABS: INR 1.2 Ratio; Prothrombin Time 12.1 sec (9.8-11.6)
[2018-01-24 04:50] LABS: Calcium 7.4 mg/dL (8.5-10.1); Carbon Dioxide 23.1 meq/L (21.0-32.0); Potassium 3.6 meq/L (3.5-5.1)
[2018-01-24 05:13] LABS: Total Protein 5.9 g/dL (6.4-8.2)
[2018-01-24] MEDS ORDERED: Magnesium Oxide 400 MG Tablet PO PRN (05:43)
[2018-01-24] MEDS ORDERED: Potassium Phosphate Inj 30 MMOL in Sodium Chlor 0.9% Inj 250 ML IV.SIG PRN (05:43)
[2018-01-24] MEDS ORDERED: Potassium Chlor 20 mEq Premix 20 MEQ/100 ML PIGGYBACK IV.SIG PRN ×2 (05:43)
[2018-01-24] MEDS ORDERED: Potassium Phosphate 500 MG Soluble Tablet PO PRN ×2 (05:43)
[2018-01-24] MEDS ORDERED: Sodium Phosphate Inj 30 MMOL in Sodium Chlor 0.9% Inj 250 ML IV.SIG PRN (05:43)
[2018-01-24] MEDS ORDERED: Potassium Chlor 40 mEq Premix 40 MEQ/100 ML PIGGYBACK IV.SIG PRN ×2 (05:43)
[2018-01-24] MEDS ORDERED: Potassium Chloride 25 MEQ Effervescent Tablet PO PRN (05:43)
[2018-01-24] MEDS ORDERED: Magnesium Sulfate Inj 2 GM in Sodium Chlor 0.9% Inj 96 ML IV.SIG PRN (05:43)
[2018-01-24] MEDS ORDERED: Magnesium Sulfate Inj 4 GM in Sodium Chlor 0.9% Inj 92 ML IV.SIG PRN (05:43)
[2018-01-24] MEDS: fentaNYL 10 mcg/mL Premix Drip 2,500 MCG/250 ML BAG IV.SIG PRN (06:15)
[2018-01-24] MEDS: Midazolam 50 MG/50 ML Inj 50 MG/50 ML BAG IV.CONT PRN ×2 (06:16→20:51)
[2018-01-24] MEDS: Chlorhexidine 0.12% Oral Kit 15 ML UDC OROPHARYNG SCH ×2 (08:00→21:06)
[2018-01-24] MEDS: Senna/Docusate Sodium 8.6/50 MG Tablet PO SCH ×2 (09:51→21:06)
[2018-01-24] MEDS ORDERED: Sod Chloride 0.9% Inj 1,000 ML IV.SIG ONE ×2 (10:45→17:00)
--- NOTE | 2018-01-24 11:54 | CT ---
EXAM DATE: 01/24/2018 11:38 AM EDT AGE/SEX: 89 years / Male INDICATIONS: Altered mental status, unresponsive. CLINICAL DATA: This is the patient's subsequent encounter. Patient reports that signs and symptoms h ave been present for 1 day and indicates a pain score of Nonresponsive. MEDICAL/SURGICAL HISTORY: Non-responsive. Non-responsive. RADIATION DOSE: 53.27 CTDI (mGy) COMPARISON: [facility] [place]/O CONTRAST, 01/23/2018. . TECHNIQUE: CT of the head without contrast. Using automated exposure control and adjustment of the mA and/or kV according to patient size, radiation dose was kept as low as reasonably achievable to ob tain optimal diagnostic quality images. DICOM format image data is available electronically for revi ew and comparison. FINDINGS: Diffuse subarachnoid hemorrhage persist with a small right temporal subdural. Cortical contusions are seen in the right temporal region, left temporal region and along the cortical surfaces of the right and left hemispheres. Subdural hematomas are seen over both the right and left convexities.. Small subdural collection is seen in the right temporal region. Blood is seen in the third ventricle and interpeduncular cistern suggesting significant midbrain rondon r. Minimal pneumocephalus persist. Basilar skull fracture on the right is again noted. CONCLUSION: 1. Evolving traumatic brain injury with some extra-axial blood and mass effect mass effect, not gleason ged significantly in the interval. 2. Findings are suspicious for significant midbrain shear is a small amount blood within the third v entricle and interpeduncular cisterns. . Electronically signed by: Jed Walsh MD 01/24/2018 11:52 AM EDT
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
[2018-01-24] MEDS: Oral Hygiene Kit OROPHARYNG SCH ×2 (12:00→16:11)
[2018-01-24] MEDS ORDERED: Albumin Human 5% Inj 500 ML IV.SIG ONE (14:08)
--- NOTE | 2018-01-24 14:30 | ECG ---
Date Performed: 01/24/2018 Time Performed: 05:51:44 PTAGE: 89 years EKG: Sinus tachycardia with PVC(s) with PAC(s). ST junctional depression is nonspecific Borderli ne ECG NO PREVIOUS TRACING DOCTOR: Homero Moran Interpretating Date/Time 01/24/2018 14:28:13
[2018-01-24] MEDS ORDERED: Albumin Human 25% Inj 100 ML IV.SIG ONE (15:00)
[2018-01-24 15:17] LABS: Hematocrit 29.9 % (39.0-51.0); Hemoglobin 10.1 gm/dL (13.0-17.0)
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
[2018-01-25] MEDS: Oral Hygiene Kit OROPHARYNG SCH ×4 (00:07→16:15)
[2018-01-25] MEDS: Pantoprazole Inj 40 MG Vial IV.PUSH SCH (00:07)
[2018-01-25] MEDS ORDERED: Norepinephrine Inj 4 MG in Sodium Chlor 0.9% Inj 246 ML IV.SIG PRN (00:46)
--- NOTE | 2018-01-25 04:26 | XR ---
EXAM DATE: 01/25/2018 4:20 AM EDT AGE/SEX: 89 years / Male INDICATIONS: External fixator placement of the left tibia. CLINICAL DATA: This is the patient's subsequent encounter. Patient reports that signs and symptoms h ave been present for 2 days and indicates a pain score of Nonresponsive. MEDICAL/SURGICAL HISTORY: Non-responsive. . Left femoral aman. ORIF of the left tibial plateau. [place] [facility] [place]23/[place]. . FINDINGS: Interim external fixation of the comminuted proximal shaft fractures of the left tibia and fibula. Ma in fracture fragments are in near-anatomic alignment. No new fractures are demonstrated. Lateral plate and screws again seen in the proximal tibia. CONCLUSION: Comminuted fractures of the left tibia and fibula have been reduced and external fixation placed. Ling r-anatomic alignment. No evidence of an acute complication. Electronically signed by: Dhiraj Mejia MD 01/25/2018 4:24 AM EDT
[2018-01-25] MEDS ORDERED: fentaNYL Citrate Inj 100 MCG/2 ML Ampul ONE (04:32)
[2018-01-25] MEDS: Multivitamin Inj 10 ML, Thiamine Inj 100 MG, Folic Acid Inj 1 MG in Sodium Chlor 0.9% I... IV.SIG SCH (04:46)
[2018-01-25] MEDS: Chlorhexidine Gluconate 2% 1 Pack (2 Cloths) TOPICAL SCH (04:47)
[2018-01-25 05:50] LABS: Baso % (Auto) 0.1 % (0.0-2.0); Eos % (Auto) 0.1 % (0.0-4.0); Hematocrit 24.6 % (39.0-51.0); Hemoglobin 8.6 gm/dL (13.0-17.0); Lymph # (Auto) 1.2 th/mm3 (1.0-4.8); Lymph % (Auto) 9.8 % (9.0-44.0); Mean Corpuscular Hemoglobin 32.5 pg (27.0-34.0); Mean Corpuscular Volume 92.9 fL (80.0-100.0); Mono # (Auto) 1.3 th/mm3 (0.0-0.9); Mono % (Auto) 10.3 % (0.0-8.0); Neut # (Auto) 9.8 th/mm3 (1.8-7.7); Neut % (Auto) 79.7 % (16.0-70.0); Platelet Count 196 th/mm3 (150-450); Red Blood Count 2.65 mil/mm3 (4.50-5.90); White Blood Count 12.3 th/mm3 (4.0-11.0)
[2018-01-25 06:12] LABS: Albumin 2.4 g/dL (3.4-5.0); Calcium 7.1 mg/dL (8.5-10.1); Carbon Dioxide 24.1 meq/L (21.0-32.0); Potassium 3.6 meq/L (3.5-5.1); Total Protein 5.3 g/dL (6.4-8.2)
[2018-01-25 06:33] LABS: ABG Base Excess -1.2 mmol/L (-2-2); ABG PCO2 36 mmHg (38-42); ABG PO2 145 mmHg (61-120)
--- NOTE | 2018-01-25 06:52 | XR ---
EXAM DATE: 01/25/2018 6:48 AM EDT AGE/SEX: 89 years / Male INDICATIONS: Shortness of breath, possible pulmonary disease. CLINICAL DATA: This is the patient's subsequent encounter. Patient reports that signs and symptoms h ave been present for 2 days and indicates a pain score of Nonresponsive. MEDICAL/SURGICAL HISTORY: Non-responsive. Non-responsive. COMPARISON: [facility], CHEST 1V SINGLE AP, 01/23/2018. . FINDINGS: ET tube and nasogastric tube are in good position. The right lung is clear. Very minimal parenchymal changes left base. Total shoulder arthroplasty on the left. No pneumothorax. CONCLUSION: Interval improvement when compared to earlier film. Support apparatus in good position. Electronically signed by: Jed Walsh MD 01/25/2018 6:51 AM EDT
[2018-01-25] MEDS: Chlorhexidine 0.12% Oral Kit 15 ML UDC OROPHARYNG SCH ×2 (08:30→19:58)
[2018-01-25] MEDS: Senna/Docusate Sodium 8.6/50 MG Tablet PO SCH ×2 (08:31→20:04)
[2018-01-25] MEDS: Midazolam 50 MG/50 ML Inj 50 MG/50 ML BAG IV.CONT PRN ×3 (08:31→20:38)
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
[2018-01-25] MEDS ORDERED: Sodium Chlor 0.9% Inj 250 ML IV.CONT ONE (10:32)
[2018-01-25] MEDS ORDERED: Sodium Chlor 0.9% Inj 500 ML IV.CONT ONE (10:32)
--- NOTE | 2018-01-25 10:38 | P.PNNS ---
Subjective Interval history: Went to OR with orthopedic surgery early this AM for ex-fix of left lower extremity. Physical Exam Vital signs: Vital Signs 01/24/18 11:02 01/24/18 11:48 01/24/18 12:00 Temperature 99 F Pulse Rate 110 H Respiratory Rate 17 16 Blood Pressure 92/52 L Pulse Oximetry 99 100 99 01/24/18 14:00 01/24/18 15:30 01/24/18 16:00 Temperature 96.8 F L Pulse Rate 99 H 96 H 98 H Respiratory Rate 16 16 Blood Pressure 84/52 L Pulse Oximetry 100 100 01/24/18 18:00 01/24/18 20:00 01/24/18 20:22 Temperature 97.5 F L Pulse Rate 87 73 72 Respiratory Rate 16 16 Blood Pressure 116/69 Pulse Oximetry 100 100 01/24/18 22:00 01/25/18 00:00 01/25/18 00:38 Temperature 97.5 F L Pulse Rate 73 91 H Respiratory Rate 16 16 Blood Pressure 123/75 Pulse Oximetry 100 100 01/25/18 02:00 01/25/18 04:52 01/25/18 07:37 Temperature Pulse Rate 91 H 84 Respiratory Rate 16 16 Blood Pressure Pulse Oximetry 100 100 01/25/18 08:26 Temperature Pulse Rate 74 Respiratory Rate 16 Blood Pressure Pulse Oximetry Intake & Output 01/24/18 01/25/18 01/25/18 18:59 06:59 18:59 Intake Total 4316.2 / 4316.2 1255 / 1255 50 / 50 Output Total 650 / 650 Balance 4316.2 / 4316.2 605 / 605 50 / 50 Intake: IV 4316.2 / 4316.2 1255 / 1255 50 / 50 Versed Inj 50 mg In 50 ml @ 2 50 / 50 50 / 50 MG/HR 2 mls/hr IV.CONT TITRATE PRN Rx#:[id number] NS Inj 1,000 ML @ 100 mls/hr IV 1000 / 1000 1000 / 1000 .CONT .Q10H LUCIUS Rx#:[id number] Buminate 5% Inj 500 ML @ 0 mls/ 500 / 500 hr IV.SIG .STK-MED ONE Rx#: [id number] MVI-12 Inj 10 ML Thiamine Inj 511.2 / 511.2 100 MG Folvite Inj 1 MG In NS Inj 500 ML @ 125 mls/hr IV.SIG Q24H LUCIUS Rx#:[id number] NS Inj 1,000 ML @ Wide Open IV. 1999 SIG BOLUS ONE Rx#:[id number] Ancef Inj 1,000 MG In NS Inj 200 / 200 100 / 100 100 ML @ 200 mls/hr IV.SIG Q8H LUCIUS Rx#:[id number] Keppra Inj 500 MG In NS Inj 100 105 / 105 105 / 105 ML @ 400 mls/hr IV.SIG Q12H LUCIUS Rx#:[id number] Output: Urine Amount (Catheter) 650 / 650 Indwelling Temp Sensing 650 / 650 Catheter Narrative: Sedated Pupils (R 4-->3, L 2-->1) Intubated ICP 15 Per nursing, when off sedation: Opens eyes to noxious stimuli Localizes right upper extremity Withdraws right lower extremity Weak withdrawal left upper (splinted) and left lower (in orthopedic ex-fix) - Urinary Catheter Management Indwelling Temp Sensing Catheter Cath placed during this visit: yes Reason for continuing: Hourly intake/output Insertion date: 01/24/18 Insertion time: 00:25 Assessment and Plan - Plan ~60 y/o male with right frontal subdural hematoma, right frontotemporal minimally displaced skull fracture, right temporal contusion, scattered traumatic subarachnoid hemorrhage, and C2 lateral mass fracture who presents as a GCS 7T. Repeat head CT 01/24 demonstrates blossoming of temporal contusion, very small increase in subdural hematoma (minimal mass effect, ~2 mm of midline shift). Continue ICP monitoring. No significant ICP elevation in the last 24 hours. Maintain cervical collar (C2 lateral mass fracture).
[2018-01-25] MEDS: Sod Chloride 0.9% Inj 1,000 ML IV.CONT SCH ×2 (10:54→18:21)
--- NOTE | 2018-01-25 11:33 | ECG ---
Date Performed: 01/24/2018 Time Performed: 14:26:36 PTAGE: 89 years EKG: Sinus tachycardia. Normal ECG except for rate Since the PREVIOUS TRACING , no significant change noted PREVIOUS TRACIN01/24/2018 05.51 DOCTOR: Homero Moran Interpretating Date/Time 01/25/2018 11:32:38
[2018-01-25] MEDS: fentaNYL 10 mcg/mL Premix Drip 2,500 MCG/250 ML BAG IV.SIG PRN (12:24)
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
[2018-01-26] MEDS: Pantoprazole Inj 40 MG Vial IV.PUSH SCH (00:12)
[2018-01-26] MEDS: fentaNYL 10 mcg/mL Premix Drip 2,500 MCG/250 ML BAG IV.SIG PRN ×2 (00:13→12:51)
[2018-01-26] MEDS: Midazolam 50 MG/50 ML Inj 50 MG/50 ML BAG IV.CONT PRN ×2 (02:46→09:56)
[2018-01-26] MEDS: Multivitamin Inj 10 ML, Thiamine Inj 100 MG, Folic Acid Inj 1 MG in Sodium Chlor 0.9% I... IV.SIG SCH (02:49)
[2018-01-26] MEDS: Oral Hygiene Kit OROPHARYNG SCH ×4 (02:49→16:31)
[2018-01-26] MEDS: Chlorhexidine Gluconate 2% 1 Pack (2 Cloths) TOPICAL SCH (03:01)
[2018-01-26 05:04] LABS: Baso # (Auto) 0.1 th/mm3 (0.0-0.2); Baso % (Auto) 0.6 % (0.0-2.0); Eos # (Auto) 0.1 th/mm3 (0.0-0.4); Eos % (Auto) 0.9 % (0.0-4.0); Hematocrit 22.6 % (39.0-51.0); Hemoglobin 7.9 gm/dL (13.0-17.0); Lymph # (Auto) 1.5 th/mm3 (1.0-4.8); Lymph % (Auto) 14.2 % (9.0-44.0); Mean Corpuscular HGB Conc 34.8 % (32.0-36.0); Mean Corpuscular Hemoglobin 32.5 pg (27.0-34.0); Mean Corpuscular Volume 93.2 fL (80.0-100.0); Mean Platelet Volume 6.9 fL (7.0-11.0); Mono % (Auto) 8.7 % (0.0-8.0); Neut # (Auto) 8.3 th/mm3 (1.8-7.7); Neut % (Auto) 75.6 % (16.0-70.0); Platelet Count 225 th/mm3 (150-450); Red Blood Count 2.43 mil/mm3 (4.50-5.90); Red Cell Distribution Width 15.7 % (11.6-17.2); White Blood Count 10.9 th/mm3 (4.0-11.0)
[2018-01-26 05:32] LABS: Alanine Aminotransferase 32 U/L (12-78); Albumin 2.1 g/dL (3.4-5.0); Anion Gap 9 meq/L (5-15); Aspartate Aminotransferase 91 U/L (15-37); Blood Urea Nitrogen 7 mg/dL (7-18); Calcium 7.6 mg/dL (8.5-10.1); Carbon Dioxide 24.6 meq/L (21.0-32.0); Chloride 118 meq/L (98-107); Glomerular Filtration Rate Greater Than 89 mL/min (>89); Glucose,Random 85 mg/dL (74-106); Potassium 3.3 meq/L (3.5-5.1); Sodium 152 meq/L (136-145)
[2018-01-26 05:38] LABS: Alkaline Phosphatase 40 U/L (45-117); Total Protein 5.3 g/dL (6.4-8.2)
--- NOTE | 2018-01-26 05:45 | XR ---
EXAM DATE: 01/26/2018 5:37 AM EDT AGE/SEX: 89 years / Male INDICATIONS: Shortness of breath. CLINICAL DATA: This is the patient's subsequent encounter. Patient reports that signs and symptoms h ave been present for 3 days and indicates a pain score of Nonresponsive. MEDICAL/SURGICAL HISTORY: Non-responsive. . Left femoral aman. ORIF of the left tibial plateau. COMPARISON: C, CHEST 1V SINGLE AP, 01/25/2018. . FINDINGS: Single AP view of the chest. Endotracheal tube and nasogastric tube remain in place. Minimal left olga g base opacity again seen. Lungs otherwise clear. No significant interval change. CONCLUSION: No significant interval change with minimal left lung base opacity. Electronically signed by: Quang Lawler MD 01/26/2018 5:44 AM EDT
[2018-01-26 05:55] LABS: ABG Base Excess 0.7 mmol/L (-2-2); ABG PCO2 36 mmHg (38-42); ABG PO2 100 mmHg (61-120)
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
[2018-01-26] MEDS ORDERED: Magnesium Oxide 400 MG Tablet PO PRN (08:36)
[2018-01-26] MEDS ORDERED: Magnesium Sulfate Inj 2 GM in Sodium Chlor 0.9% Inj 96 ML IV.SIG PRN (08:36)
[2018-01-26] MEDS ORDERED: Potassium Phosphate Inj 30 MMOL in Sodium Chlor 0.9% Inj 250 ML IV.SIG PRN (08:36)
[2018-01-26] MEDS ORDERED: Potassium Phosphate 500 MG Soluble Tablet PO PRN ×2 (08:36)
[2018-01-26] MEDS ORDERED: Sodium Phosphate Inj 30 MMOL in Sodium Chlor 0.9% Inj 250 ML IV.SIG PRN (08:36)
[2018-01-26] MEDS ORDERED: Magnesium Sulfate Inj 4 GM in Sodium Chlor 0.9% Inj 92 ML IV.SIG PRN (08:36)
[2018-01-26] MEDS ORDERED: Potassium Chlor 20 mEq Premix 20 MEQ/100 ML PIGGYBACK IV.SIG PRN ×2 (08:36)
[2018-01-26] MEDS: Chlorhexidine 0.12% Oral Kit 15 ML UDC OROPHARYNG SCH ×2 (09:56→20:39)
[2018-01-26] MEDS: Senna/Docusate Sodium 8.6/50 MG Tablet PO SCH ×2 (10:00→20:40)
[2018-01-26] MEDS: Potassium Chlor 40 mEq Premix 40 MEQ/100 ML PIGGYBACK IV.SIG PRN (10:01)
--- NOTE | 2018-01-26 10:25 | P.PNNS ---
Subjective Interval history: Pt sedated on Versed and Fentanyl drips. Not opening eyes or following commands. <Ronald Whittington - Last Filed: 01/26/18 10:13> Physical Exam Vital signs: Vital Signs 01/25/18 11:17 01/25/18 12:00 01/25/18 12:54 Temperature 97.2 F L Pulse Rate 80 Respiratory Rate 16 16 16 Blood Pressure 103/58 L Pulse Oximetry 99 100 01/25/18 14:00 01/25/18 15:24 01/25/18 16:00 Temperature 97.2 F L Pulse Rate 94 H 82 86 Respiratory Rate 16 16 Blood Pressure 106/58 L Pulse Oximetry 100 100 01/25/18 18:00 01/25/18 20:00 01/25/18 20:08 Temperature 97.5 F L Pulse Rate 80 80 79 Respiratory Rate 16 16 Blood Pressure 113/66 Pulse Oximetry 100 100 01/25/18 22:00 01/26/18 00:00 01/26/18 00:13 Temperature 97.2 F L Pulse Rate 65 74 Respiratory Rate 16 16 Blood Pressure 127/72 Pulse Oximetry 100 01/26/18 02:00 01/26/18 03:26 01/26/18 04:00 Temperature 97.7 F Pulse Rate 78 79 75 Respiratory Rate 16 16 Blood Pressure 125/68 Pulse Oximetry 100 01/26/18 08:23 Temperature Pulse Rate 88 Respiratory Rate 16 Blood Pressure Pulse Oximetry 100 Intake & Output 01/25/18 01/26/18 01/26/18 18:59 06:59 18:59 Intake Total 2166.2 / 2166.2 545 / 545 300 / 300 Output Total 950 / 950 1250 / 1250 Balance 1216.2 / 1216.2 -705 / -705 300 / 300 Weight 75.2 kg Intake: IV 2166.2 / 2166.2 545 / 545 300 / 300 Versed Inj 50 mg In 50 ml @ 2 100 / 100 100 / 100 50 / 50 MG/HR 2 mls/hr IV.CONT TITRATE PRN Rx#:[id number] NS Inj 1,000 ML @ 50 mls/hr IV. 1000 / 1000 CONT .Q20H LUCIUS Rx#:[id number] MVI-12 Inj 10 ML Thiamine Inj 511.2 / 511.2 100 MG Folvite Inj 1 MG In NS Inj 500 ML @ 125 mls/hr IV.SIG Q24H LUCIUS Rx#:[id number] Levophed Inj 4 MG In NS Inj 246 250 / 250 ML @ 8 MCG/MIN 30 mls/hr IV. SIG TITRATE PRN Rx#:[id number] Ancef Inj 1,000 MG In NS Inj 200 / 200 100 / 100 100 ML @ 200 mls/hr IV.SIG Q8H LUCIUS Rx#:[id number] fentaNYL 10 mcg/mL Premix Drip 250 / 250 240 / 240 2,500 mcg In 250 ml @ 50 MCG/HR 5 mls/hr IV.SIG TITRATE PRN Rx #:[id number] Keppra Inj 500 MG In NS Inj 100 105 / 105 105 / 105 ML @ 400 mls/hr IV.SIG Q12H LUCIUS Rx#:[id number] Output: Urine Amount (Catheter) 950 / 950 1250 / 1250 Indwelling Temp Sensing 950 / 950 1250 / 1250 Catheter Other: # Bowel Movements 0 - Constitutional Comments: Pt sedated and intubated. - Routine HEENT Exam Head: Absent: atraumatic (Right side of head, face and nose with abrasions.) Eye: Present: PERRL (Right 3mm Left 2mm slight reaction bilaterally.). Absent: conjunctival icterus ENT: Absent: oropharynx clear (ET intubated.) - Routine Neck Exam Comments: [place] J collar in place. - Routine Respiratory Exam Present: patient mechanically ventilated (Volume control. Rate 16. FiO2 35%. Peep 5.), CTA bilaterally. Absent: respiratory distress, rhonchi, wheezes - Routine Cardiovascular Exam Present: RRR, S1, S2. Absent: murmur Comments: Norepinephrine drip. - Routine Abdominal Exam Present: soft. Absent: normoactive bowel sounds (Diminished bs.), distended, firm - Routine Extremities Exam Comments: LLE external fixator and bandaged. LUE splinted and bandaged. - Routine Neurological Exam Absent: alert, oriented X3 Pt sedated and intubated. [place] bolt in place ICP 0. Not following commands. Right pupil 3mm left 2mm slight reaction bilaterally. - Detailed Neurological Exam: Coma Scale Eye Opening: None Verbal Response: None Motor Response: None [place] Coma Scale Total: 3 - Routine Psychiatric Exam Present: unable to assess - Urinary Catheter Management Indwelling Temp Sensing Catheter Cath placed during this visit: yes Reason for continuing: Hourly intake/output Insertion date: 01/24/18 Insertion time: 00:25 <Ronald Whittington - Last Filed: 01/26/18 10:13> Vital signs: Vital Signs 01/25/18 12:54 01/25/18 14:00 01/25/18 15:24 Temperature Pulse Rate 94 H 82 Respiratory Rate 16 16 Blood Pressure Pulse Oximetry 100 01/25/18 16:00 01/25/18 18:00 01/25/18 20:00 Temperature 97.2 F L 97.5 F L Pulse Rate 86 80 80 Respiratory Rate 16 16 Blood Pressure 106/58 L 113/66 Pulse Oximetry 100 100 01/25/18 20:08 01/25/18 22:00 01/26/18 00:00 Temperature 97.2 F L Pulse Rate 79 65 74 Respiratory Rate 16 16 Blood Pressure 127/72 Pulse Oximetry 100 01/26/18 00:13 01/26/18 02:00 01/26/18 03:26 Temperature Pulse Rate 78 79 Respiratory Rate 16 16 Blood Pressure Pulse Oximetry 100 100 01/26/18 04:00 01/26/18 08:23 Temperature 97.7 F Pulse Rate 75 88 Respiratory Rate 16 16 Blood Pressure 125/68 Pulse Oximetry 100 Intake & Output 01/25/18 01/26/18 01/26/18 18:59 06:59 18:59 Intake Total 2166.2 / 2166.2 545 / 545 300 / 300 Output Total 950 / 950 1250 / 1250 Balance 1216.2 / 1216.2 -705 / -705 300 / 300 Weight 75.2 kg Intake: IV 2166.2 / 2166.2 545 / 545 300 / 300 Versed Inj 50 mg In 50 ml @ 2 100 / 100 100 / 100 50 / 50 MG/HR 2 mls/hr IV.CONT TITRATE PRN Rx#:[id number] NS Inj 1,000 ML @ 50 mls/hr IV. 1000 / 1000 CONT .Q20H LUCIUS Rx#:[id number] MVI-12 Inj 10 ML Thiamine Inj 511.2 / 511.2 100 MG Folvite Inj 1 MG In NS Inj 500 ML @ 125 mls/hr IV.SIG Q24H LUCIUS Rx#:[id number] Levophed Inj 4 MG In NS Inj 246 250 / 250 ML @ 8 MCG/MIN 30 mls/hr IV. SIG TITRATE PRN Rx#:[id number] Ancef Inj 1,000 MG In NS Inj 200 / 200 100 / 100 100 ML @ 200 mls/hr IV.SIG Q8H LUCIUS Rx#:[id number] fentaNYL 10 mcg/mL Premix Drip 250 / 250 240 / 240 2,500 mcg In 250 ml @ 50 MCG/HR 5 mls/hr IV.SIG TITRATE PRN Rx #:[id number] Keppra Inj 500 MG In NS Inj 100 105 / 105 105 / 105 ML @ 400 mls/hr IV.SIG Q12H LUCIUS Rx#:[id number] Output: Urine Amount (Catheter) 950 / 950 1250 / 1250 Indwelling Temp Sensing 950 / 950 1250 / 1250 Catheter Other: # Bowel Movements 0 - Urinary Catheter Management Indwelling Temp Sensing Catheter Cath placed during this visit: no <[place] - Last Filed: 01/26/18 12:10> Assessment and Plan - Assessment (1) Subdural hemorrhage Code(s): I62.00 - Nontraumatic subdural hemorrhage, unspecified Status: Acute (2) TBI (traumatic brain injury) Code(s): S06.9X9A - Unspecified intracranial injury with loss of consciousness of unspecified duration, initial encounter Status: Acute - Plan ~60 y/o male with right frontal subdural hematoma, right frontotemporal minimally displaced skull fracture, right temporal contusion, scattered traumatic subarachnoid hemorrhage, and C2 lateral mass fracture who presents as a GCS 7T. Repeat head CT 01/24 demonstrates blossoming of temporal contusion, very small increase in subdural hematoma (minimal mass effect, ~2 mm of midline shift). P: Continue ICP monitoring. Maintain cervical collar (C2 lateral mass fracture). Continue with critical care. <Ronald Whittington - Last Filed: 01/26/18 10:13> - Attending Attestation The exam, history, and the medical decision-making described in the above note were completed with the assistance of the mid-level provider. I reviewed and agree with the findings presented. I attest that I had a [id number] encounter with the patient on the same day, and personally performed and documented my assessment and findings in the medical record. ICPs well controlled. C-collar for C2 lateral mass fracture. We will attempt weaning sedation as ICP tolerates. <West Rain - Last Filed: 01/26/18 12:10>
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
[2018-01-26] MEDS: Sod Chloride 0.9% Inj 1,000 ML IV.CONT SCH (12:47)
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
[2018-01-26 23:18] LABS: Alanine Aminotransferase 30 U/L (12-78); Albumin 2.1 g/dL (3.4-5.0); Anion Gap 8 meq/L (5-15); Aspartate Aminotransferase 83 U/L (15-37); Blood Urea Nitrogen 9 mg/dL (7-18); Calcium 7.7 mg/dL (8.5-10.1); Carbon Dioxide 26.3 meq/L (21.0-32.0); Chloride 121 meq/L (98-107); Glomerular Filtration Rate Greater Than 89 mL/min (>89); Glucose,Random 114 mg/dL (74-106); Potassium 3.9 meq/L (3.5-5.1)
[2018-01-26 23:21] LABS: Alkaline Phosphatase 44 U/L (45-117); Total Protein 5.2 g/dL (6.4-8.2)
[2018-01-26 23:27] LABS: Sodium 155 meq/L (136-145)
[2018-01-27] MEDS: Oral Hygiene Kit OROPHARYNG SCH ×4 (00:14→15:27)
[2018-01-27] MEDS: Pantoprazole Inj 40 MG Vial IV.PUSH SCH (01:03)
[2018-01-27] MEDS: fentaNYL 10 mcg/mL Premix Drip 2,500 MCG/250 ML BAG IV.SIG PRN ×2 (01:09→15:28)
[2018-01-27] MEDS: Chlorhexidine Gluconate 2% 1 Pack (2 Cloths) TOPICAL SCH (04:03)
--- NOTE | 2018-01-27 04:36 | XR ---
EXAM DATE: 01/27/2018 4:15 AM EDT AGE/SEX: 89 years / Male INDICATIONS: Respiratory distress. CLINICAL DATA: This is the patient's subsequent encounter. Patient reports that signs and symptoms h ave been present for 4 - 6 days and indicates a pain score of Nonresponsive. MEDICAL/SURGICAL HISTORY: Non-responsive. None. Left femoral aman. ORIF of the left tibial plat eau. COMPARISON: C, CHEST 1V SINGLE AP, 01/26/2018. . FINDINGS: Single AP view the chest. Endotracheal tube and nasogastric tube in place. Clearing of previously not ed left lung base opacity. Minimal hazy right lung base opacity now seen. No evidence of pleural effu chalo or pneumothorax. Cardiomediastinal silhouette within normal limits. CONCLUSION: Minimal right lung base opacity. Electronically signed by: Quang Lawler MD 01/27/2018 4:34 AM EDT
[2018-01-27 05:35] LABS: Baso % (Auto) 0.6 % (0.0-2.0); Eos # (Auto) 0.1 th/mm3 (0.0-0.4); Eos % (Auto) 1.6 % (0.0-4.0); Lymph # (Auto) 1.1 th/mm3 (1.0-4.8); Lymph % (Auto) 13.6 % (9.0-44.0); Mean Corpuscular HGB Conc 33.4 % (32.0-36.0); Mean Corpuscular Hemoglobin 32.1 pg (27.0-34.0); Mean Platelet Volume 7.6 fL (7.0-11.0); Mono # (Auto) 0.5 th/mm3 (0.0-0.9); Mono % (Auto) 6.1 % (0.0-8.0); Neut # (Auto) 6.4 th/mm3 (1.8-7.7); Neut % (Auto) 78.1 % (16.0-70.0); Platelet Count 185 th/mm3 (150-450); Red Blood Count 1.84 mil/mm3 (4.50-5.90); Red Cell Distribution Width 15.3 % (11.6-17.2); White Blood Count 8.2 th/mm3 (4.0-11.0)
[2018-01-27 05:38] LABS: Hematocrit 17.7 % (39.0-51.0); Hemoglobin 5.9 gm/dL (13.0-17.0)
[2018-01-27 06:18] LABS: ABG Base Excess 1.3 mmol/L (-2-2); ABG PCO2 30 mmHg (38-42); ABG PO2 92 mmHg (61-120)
--- NOTE | 2018-01-27 07:33 | P.PNOP ---
Subjective Interval history: s/p left acetabulum fx s/p exfix left tibia s/p left distal humerus fracture intubated/sedated. no changes. nurse reports increased swelling of elbow Physical Exam Vital signs: Vital Signs 01/26/18 08:00 01/26/18 08:23 01/26/18 10:00 Temperature 98.1 F Pulse Rate 85 88 90 Respiratory Rate 16 16 Blood Pressure 85/57 L Pulse Oximetry 100 100 01/26/18 12:00 01/26/18 13:35 01/26/18 14:00 Temperature 98.4 F Pulse Rate 95 H 92 H Respiratory Rate 16 16 Blood Pressure 93/57 L Pulse Oximetry 100 100 01/26/18 16:00 01/26/18 16:54 01/26/18 18:00 Temperature 98.6 F Pulse Rate 90 93 H 91 H Respiratory Rate 16 16 Blood Pressure 93/51 L Pulse Oximetry 100 100 01/26/18 19:51 01/26/18 20:00 01/26/18 22:00 Temperature 98.2 F Pulse Rate 96 H 96 H 96 H Respiratory Rate 16 16 Blood Pressure 97/56 L Pulse Oximetry 100 100 01/27/18 00:00 01/27/18 01:31 01/27/18 01:39 Temperature 99.1 F Pulse Rate 98 H Respiratory Rate 16 16 16 Blood Pressure 96/55 L Pulse Oximetry 100 100 01/27/18 02:00 01/27/18 03:23 01/27/18 04:00 Temperature 98.8 F Pulse Rate 99 H 97 H 100 H Respiratory Rate 16 16 Blood Pressure 91/52 L Pulse Oximetry 100 01/27/18 04:12 01/27/18 06:00 Temperature Pulse Rate 96 H Respiratory Rate 16 Blood Pressure Pulse Oximetry 100 Intake & Output 01/26/18 01/27/18 01/27/18 18:59 06:59 18:59 Intake Total 1888.2 / 1888.2 930 / 930 Output Total 525 / 525 350 / 350 Balance 1363.2 / 1363.2 580 / 580 Weight 74.4 kg Intake: IV 1466.2 / 1466.2 455 / 455 Versed Inj 50 mg In 50 ml @ 2 50 / 50 MG/HR 2 mls/hr IV.CONT TITRATE PRN Rx#:[id number] MVI-12 Inj 10 ML Thiamine Inj 511.2 / 511.2 100 MG Folvite Inj 1 MG In NS Inj 500 ML @ 125 mls/hr IV.SIG Q24H [facility] Rx#:[id number] Levophed Inj 4 MG In NS Inj 246 250 / 250 ML @ 8 MCG/MIN 30 mls/hr IV. SIG TITRATE PRN Rx#:[id number] KCl 40 mEq Premix Inj 40 meq In 100 / 100 100 ml @ 25 mls/hr IV.SIG UNSCH PRN Rx#:[id number] Ancef Inj 1,000 MG In NS Inj 200 / 200 100 / 100 100 ML @ 200 mls/hr IV.SIG Q8H [facility] Rx#:[id number] fentaNYL 10 mcg/mL Premix Drip 250 / 250 250 / 250 2,500 mcg In 250 ml @ 50 MCG/HR 5 mls/hr IV.SIG TITRATE PRN Rx #:[id number] Keppra Inj 500 MG In NS Inj 100 105 / 105 105 / 105 ML @ 400 mls/hr IV.SIG Q12H [facility] Rx#:[id number] Tube Feeding 302 / 302 475 / 475 Water Bolus Amount 120 / 120 Output: Urine Amount (Catheter) 525 / 525 350 / 350 Indwelling Temp Sensing 525 / 525 350 / 350 Catheter Other: # Bowel Movements 0 Narrative: LLE: pin sites clean and dry. intact. moderate swelling of lower leg LUE: +splint. intact. RUE: moderate swelling of elbow and forearm. no crepitus with motion of shoulder , elbow, wrist. noticeable swelling of olecranon. - Urinary Catheter Management Indwelling Temp Sensing Catheter Cath placed during this visit: yes Reason for continuing: Hourly intake/output Insertion date: 01/24/18 Insertion time: 00:25 Results - Labs CBC & Chem 7: 01/27/18 04:36 01/26/18 22:43 Laboratory Results - last 24 hr 01/26/18 01/27/18 01/27/18 22:43 04:36 06:02 WBC 8.2 RBC 1.84 L Hgb 5.9 L* D Hct 17.7 L* MCV 96.0 MCH 32.1 MCHC 33.4 RDW 15.3 Plt Count 185 MPV 7.6 Prelim Diff (Auto) Slide review pending Neut % (Auto) 78.1 H Lymph % (Auto) 13.6 [place] % (Auto) 6.1 Eos % (Auto) 1.6 Baso % (Auto) 0.6 Neut # (Auto) 6.4 Lymph # (Auto) 1.1 Latimer # (Auto) 0.5 Eos # (Auto) 0.1 Baso # (Auto) 0.0 Differential Comment . Puncture Site Patient Temperature O2 Saturation ABG pH ABG pCO2 ABG pO2 ABG HCO3 ABG O2 Content ABG Base Excess ABG Methemoglobin Saqib Test Hemoglobin Carboxyhemoglobin O2 Delivery Device Vent Setting Inspired O2 Critical Value Sodium 155 H Potassium 3.9 Chloride 121 H Carbon Dioxide 26.3 Anion Gap 8 BUN 9 Creatinine 0.62 Estimated GFR Greater than 89 Random Glucose 114 H Calcium 7.7 L Total Bilirubin 0.4 AST 83 H ALT 30 Alkaline Phosphatase 44 L Total Protein 5.2 L Albumin 2.1 L Blood Type O Positive Antibody Screen Negative MTS Gel Crossmatch 01/27/18 01/27/18 06:07 06:17 WBC RBC Hgb Hct MCV MCH MCHC RDW Plt Count MPV Prelim Diff (Auto) Neut % (Auto) Lymph % (Auto) Latimer % (Auto) Eos % (Auto) Baso % (Auto) Neut # (Auto) Lymph # (Auto) Latimer # (Auto) Eos # (Auto) Baso # (Auto) Differential Comment Puncture Site Right radial Patient Temperature 98.6 O2 Saturation 96 ABG pH 7.52 H* ABG pCO2 30 L ABG pO2 92 ABG HCO3 24 ABG O2 Content 11.3 L ABG Base Excess 1.3 ABG Methemoglobin 0.9 Saqib Test Present Hemoglobin 8.3 L Carboxyhemoglobin 1.5 O2 Delivery Device Ventilator Vent Setting Ac/16/500/peep5 Inspired O2 35 Critical Value Yes Sodium Potassium Chloride Carbon Dioxide Anion Gap BUN Creatinine Estimated GFR Random Glucose Calcium Total Bilirubin AST ALT Alkaline Phosphatase Total Protein Albumin Blood Type Antibody Screen MTS Gel Crossmatch See Detail - Imaging Impressions Abdomen/Pelvis CT 01/23/18 23:35 CONCLUSION: 1. Comminuted fracturing of the right hemipelvis including the acetabulum and quadrilateral plate. Associated small pelvic sidewall hematoma. Significant active extravasation is doubted but cannot be accurately assessed without presence of intravenous contrast. Please see above. 2. No acute visceral organ injury is demonstrated. Apparent previous splenectomy. 3D Reconstruction 01/26/18 00:00 CONCLUSION: 1. 3-D reconstructions of right hemipelvic fracture, as above. Hip CT 01/26/18 00:00 CONCLUSION: 1. Comminuted fracture of the right hemipelvis involving the acetabulum and quadrilateral plate, as described above. Chest X-Ray 01/27/18 06:00 CONCLUSION: Minimal right lung base opacity. Assessment and Plan - Assessment and Plan 1) Right Acetabulum fx 2) Left Periprosthetic Proximal Tibia Fx 3) Left Periprosthetic Distal Humerus Fx 4) Right elbow swelling -NWB BLE -pin care BID of left ankle exfix -dressings changed to daily with xeroform/primapore over traumatic wound and just xreoform on pin sites -maintain sling and NWB on LUE -will order xray of right elbow today to eval swelling and rule out any possible fx -still not stable enough for surgery -will need to be able to be placed with head down for fixation of tibia and needs to be placed lateral for fixation of left humerus and right acetabulum
[2018-01-27 08:28] LABS: Eosinophils 1 % (0-4); Lymphocytes 7 % (9-44); Monocytes 4 % (0-8)
[2018-01-27 08:29] LABS: Platelet Estimate Normal (Normal); Platelet Morphology Normal (Normal)
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
[2018-01-27] MEDS: Chlorhexidine 0.12% Oral Kit 15 ML UDC OROPHARYNG SCH ×2 (09:44→21:15)
[2018-01-27] MEDS: Sod Chloride 0.9% Inj 1,000 ML IV.CONT SCH (09:45)
[2018-01-27] MEDS: Senna/Docusate Sodium 8.6/50 MG Tablet PO SCH ×2 (09:45→21:16)
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
[2018-01-27 15:39] LABS: Hematocrit 26.7 % (39.0-51.0); Hemoglobin 9.4 gm/dL (13.0-17.0)
--- NOTE | 2018-01-27 15:46 | P.OP ---
Preoperative Diagnosis: TBI Postoperative Diagnosis: TBI Date of procedure: 01/27/18 Procedure: Right SC central line insertion Surgeon: Melinda Duran MD Operation and Findings: Attempted right femoral access not successful.Right SC was prepped and draped.The SCV was cannulated and using modified seldinger technique a TLC central line was inserted to 20cm.There is good flow and blood return.Line sutured to skin with 3-0 silk.CXR shows good position of the line.
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
[2018-01-28] MEDS: Pantoprazole Inj 40 MG Vial IV.PUSH SCH (00:34)
[2018-01-28] MEDS: Oral Hygiene Kit OROPHARYNG SCH ×5 (04:00→23:44)
[2018-01-28] MEDS: Chlorhexidine Gluconate 2% 1 Pack (2 Cloths) TOPICAL SCH (04:00)
[2018-01-28] MEDS: fentaNYL 10 mcg/mL Premix Drip 2,500 MCG/250 ML BAG IV.SIG PRN ×2 (04:19→23:47)
[2018-01-28 04:36] LABS: Baso % (Auto) 0.2 % (0.0-2.0); Eos # (Auto) 0.2 th/mm3 (0.0-0.4); Eos % (Auto) 2.1 % (0.0-4.0); Hematocrit 30.7 % (39.0-51.0); Hemoglobin 10.3 gm/dL (13.0-17.0); Lymph # (Auto) 1.3 th/mm3 (1.0-4.8); Lymph % (Auto) 11.4 % (9.0-44.0); Mean Corpuscular HGB Conc 33.6 % (32.0-36.0); Mean Corpuscular Volume 92.2 fL (80.0-100.0); Mean Platelet Volume 6.9 fL (7.0-11.0); Mono # (Auto) 0.8 th/mm3 (0.0-0.9); Mono % (Auto) 6.5 % (0.0-8.0); Neut # (Auto) 9.3 th/mm3 (1.8-7.7); Neut % (Auto) 79.8 % (16.0-70.0); Platelet Count 253 th/mm3 (150-450); Red Blood Count 3.33 mil/mm3 (4.50-5.90); Red Cell Distribution Width 18.5 % (11.6-17.2); White Blood Count 11.6 th/mm3 (4.0-11.0)
[2018-01-28 04:50] LABS: Albumin 2.1 g/dL (3.4-5.0); Anion Gap 2 meq/L (5-15); Aspartate Aminotransferase 61 U/L (15-37); Blood Urea Nitrogen 9 mg/dL (7-18); Calcium 8.1 mg/dL (8.5-10.1); Chloride 120 meq/L (98-107); Glomerular Filtration Rate Greater Than 89 mL/min (>89); Glucose,Random 129 mg/dL (74-106); Potassium 4.2 meq/L (3.5-5.1); Sodium 153 meq/L (136-145)
[2018-01-28 04:54] LABS: Alanine Aminotransferase 28 U/L (12-78); Alkaline Phosphatase 57 U/L (45-117); Total Protein 5.9 g/dL (6.4-8.2)
--- NOTE | 2018-01-28 05:40 | XR ---
EXAM DATE: 01/28/2018 6:00 AM EDT AGE/SEX: 57 years / Male INDICATIONS: Shortness of breath. CLINICAL DATA: This is the patient's subsequent encounter. Patient reports that signs and symptoms h ave been present for 2 days and indicates a pain score of Nonresponsive. MEDICAL/SURGICAL HISTORY: Non-responsive. Non-responsive. COMPARISON: [facility], CHEST 1V SINGLE AP, 01/27/2018. . FINDINGS: Single AP view the chest. Endotracheal tube, nasogastric tube, right subclavian central venous cathet er remain in place. Increased bilateral lower lung zone parenchymal opacity and new bilateral pleural effusions. No evidence of pneumothorax. Cardiomediastinal silhouette unchanged. CONCLUSION: Increased bilateral lower lung parenchymal opacity may represent pulmonary edema and new small bilate ral pleural effusions. Electronically signed by: Quang Lawler MD 01/28/2018 5:39 AM EDT
[2018-01-28 05:46] LABS: ABG Base Excess 1.3 mmol/L (-2-2); ABG PCO2 56 mmHg (38-42); ABG PO2 70 mmHg (61-120)
[2018-01-28] MEDS: Sod Chloride 0.9% Inj 1,000 ML IV.CONT SCH ×2 (06:02→15:13)
--- NOTE | 2018-01-28 08:19 | P.PNOP ---
Subjective Interval history: no changes. still having issues with ICPs. Physical Exam Vital signs: Vital Signs 01/27/18 08:31 01/27/18 09:18 01/27/18 10:00 Temperature 97.3 F L Pulse Rate 99 H 101 H 97 H Respiratory Rate 12 12 Blood Pressure 97/54 L Pulse Oximetry 100 98 01/27/18 12:00 01/27/18 14:00 01/27/18 16:00 Temperature 96.3 F L 97.6 F Pulse Rate 93 H 91 H 89 Respiratory Rate 12 12 Blood Pressure 101/56 L 105/62 Pulse Oximetry 100 100 01/27/18 16:55 01/27/18 16:57 01/27/18 18:00 Temperature Pulse Rate 93 H 96 H Respiratory Rate 12 14 Blood Pressure Pulse Oximetry 100 01/27/18 19:42 01/27/18 20:00 01/27/18 22:00 Temperature 97.8 F Pulse Rate 100 H 104 H 104 H Respiratory Rate 17 12 Blood Pressure 117/66 Pulse Oximetry 94 L 100 01/28/18 00:00 01/28/18 01:42 01/28/18 02:00 Temperature 98.8 F Pulse Rate 106 H 110 H Respiratory Rate 12 12 Blood Pressure 120/64 Pulse Oximetry 99 98 01/28/18 03:26 01/28/18 04:00 01/28/18 04:02 Temperature 98.6 F Pulse Rate 109 H 110 H Respiratory Rate 12 12 15 Blood Pressure 112/63 Pulse Oximetry 97 95 01/28/18 06:00 Temperature Pulse Rate 111 H Respiratory Rate Blood Pressure Pulse Oximetry Intake & Output 01/27/18 01/28/18 01/28/18 18:59 06:59 18:59 Intake Total 2613 / 2613 1311 / 1311 Output Total 500 / 500 1350 / 1350 Balance 2113 / 2113 -39 / -39 Weight 78.7 kg Intake: IV 1555 / 1555 455 / 455 NS Inj 1,000 ML @ 50 mls/hr IV. 1000 / 1000 CONT .Q20H LUCIUS Rx#:[id number] Ancef Inj 1,000 MG In NS Inj 200 / 200 100 / 100 100 ML @ 200 mls/hr IV.SIG Q8H LUCIUS Rx#:[id number] fentaNYL 10 mcg/mL Premix Drip 250 / 250 250 / 250 2,500 mcg In 250 ml @ 50 MCG/HR 5 mls/hr IV.SIG TITRATE PRN Rx #:[id number] Keppra Inj 500 MG In NS Inj 100 105 / 105 105 / 105 ML @ 400 mls/hr IV.SIG Q12H LUCIUS Rx#:[id number] Tube Feeding 218 / 218 736 / 736 Tube Irrigant 90 / 90 Water Bolus Amount 120 / 120 Other 750 / 750 Rbc As-3 Leukoreduced Unit 250 / 250 [id number] Rbc As-3 Leukoreduced Unit 500 / 500 [id number] Intake (Blood Product) Amt 0 / 0 Rbc As-3 Leukoreduced Unit 0 / 0 [id number] Rbc As-3 Leukoreduced Unit 0 / 0 [id number] Output: Urine Amount (Catheter) 500 / 500 1350 / 1350 Indwelling Temp Sensing 500 / 500 1350 / 1350 Catheter Narrative: LLE: foot and leg internally rotated. ankle and foot plantar flexed. exfix in place. pin sites clean RLE: good cap refill LUE: +splint. intact. - Urinary Catheter Management Indwelling Temp Sensing Catheter Cath placed during this visit: yes Reason for continuing: Hourly intake/output Insertion date: 01/24/18 Insertion time: 00:25 Results - Labs CBC & Chem 7: 01/28/18 04:20 01/28/18 04:20 Laboratory Results - last 24 hr 01/27/18 01/27/18 01/27/18 04:36 06:17 15:00 WBC RBC Hgb 9.4 L D Hct 26.7 L MCV MCH MCHC RDW Plt Count MPV Neut % (Auto) Lymph % (Auto) [place] % (Auto) Eos % (Auto) Baso % (Auto) Neut # (Auto) Lymph # (Auto) [place] # (Auto) Eos # (Auto) Baso # (Auto) WBC Differential Manual diff final Seg Neuts % (Manual) 76 H Band Neuts % (Manual) 12 H Lymphocytes % (Manual) 7 L Monocytes % (Manual) 4 Eosinophils % (Manual) 1 Abs Neuts (Manual) 7.2 Differential Comment Platelet Estimate Normal Platelet Morphology Normal Puncture Site Patient Temperature O2 Saturation ABG pH ABG pCO2 ABG pO2 ABG HCO3 ABG O2 Content ABG Base Excess ABG Methemoglobin Saqib Test Hemoglobin Carboxyhemoglobin O2 Delivery Device Vent Setting Inspired O2 Critical Value Sodium Potassium Chloride Carbon Dioxide Anion Gap BUN Creatinine Estimated GFR Random Glucose Calcium Total Bilirubin AST ALT Alkaline Phosphatase Total Protein Albumin MTS Gel Crossmatch See Detail 01/28/18 01/28/18 01/28/18 04:20 04:20 05:27 WBC 11.6 H RBC 3.33 L Hgb 10.3 L Hct 30.7 L MCV 92.2 D MCH 31.0 MCHC 33.6 RDW 18.5 H D Plt Count 253 D MPV 6.9 L Neut % (Auto) 79.8 H Lymph % (Auto) 11.4 [place] % (Auto) 6.5 Eos % (Auto) 2.1 Baso % (Auto) 0.2 Neut # (Auto) 9.3 H Lymph # (Auto) 1.3 [place] # (Auto) 0.8 Eos # (Auto) 0.2 Baso # (Auto) 0.0 WBC Differential . Seg Neuts % (Manual) Band Neuts % (Manual) Lymphocytes % (Manual) Monocytes % (Manual) Eosinophils % (Manual) Abs Neuts (Manual) Differential Comment Auto diff final Platelet Estimate Platelet Morphology Puncture Site Right radial Patient Temperature 98.6 O2 Saturation 91 ABG pH 7.30 L ABG pCO2 56 H* ABG pO2 70 ABG HCO3 27 H ABG O2 Content 13.5 ABG Base Excess 1.3 ABG Methemoglobin 1.0 Saqib Test Present Hemoglobin 10.5 L Carboxyhemoglobin 1.8 O2 Delivery Device Ventilator Vent Setting Ac/12/500/peep5 Inspired O2 45 Critical Value Yes Sodium 153 H Potassium 4.2 Chloride 120 H Carbon Dioxide 31.0 Anion Gap 2 L BUN 9 Creatinine 0.53 L Estimated GFR Greater than 89 Random Glucose 129 H Calcium 8.1 L Total Bilirubin 0.5 AST 61 H ALT 28 Alkaline Phosphatase 57 Total Protein 5.9 L D Albumin 2.1 L MTS Gel Crossmatch - Imaging Impressions Elbow X-Ray 01/27/18 00:00 CONCLUSION: No acute fracture or joint dislocation. Abdomen/Pelvis CT 01/27/18 09:59 CONCLUSION: 1. Multiple pelvic fractures as above similar to January 24. 2. Development of basilar lung consolidation and trace pleural fluid since January 24. 3. Mild periportal edema in the liver. NG coiled in stomach. Mild anasarca. 4. Previous splenectomy. Mild constipation. Chest CT 01/27/18 09:59 CONCLUSION: 1. Posterior bibasilar consolidating airspace disease with small amount of associated effusion. 2. No evidence of pneumothorax, mediastinal hematoma or mediastinal vascular injury. 3. Fractured right acromioclavicular joint and multiple right rib fractures which do not appear acute. 4. Right axillary hematoma with edema extending into the right upper extremity. Visualized vascular structures appear intact. 5. Trace pericardial effusion. Neck CTA 01/27/18 09:59 CONCLUSION: 1. CTA neck negative for dissection, aneurysm or significant stenosis. Chest X-Ray 01/27/18 12:04 CONCLUSION: Placement of right central line in superior vena cava without pneumothorax. Chest X-Ray 01/28/18 06:00 CONCLUSION: Increased bilateral lower lung parenchymal opacity may represent pulmonary edema and new small bilateral pleural effusions. Assessment and Plan - Assessment and Plan 1) Right Acetabulum fx 2) Left Periprosthetic Proximal Tibia Fx 3) Left Periprosthetic Distal Humerus Fx -NWB BLE -pin care BID of left ankle exfix -dressings changed to daily with xeroform/primapore over traumatic wound and just xreoform on pin sites -maintain sling and NWB on LUE -xrays of right elbow are negative -still not stable enough for surgery -will need to be able to be placed with head down for fixation of tibia and needs to be placed lateral for fixation of left humerus and right acetabulum -will order podus boot for left foot today to prevent and contracture -concerned about significant internal rotation of left leg. tried adjusting patient position but not much improvement. will order AP pelvis today to confirm no left hip dislocation.
[2018-01-28 08:23] LABS: ABG Base Excess 1.3 mmol/L (-2-2); ABG PCO2 52 mmHg (38-42); ABG PO2 97 mmHg (61-120)
[2018-01-28] MEDS: Senna/Docusate Sodium 8.6/50 MG Tablet PO SCH ×2 (08:23→20:01)
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
[2018-01-28] MEDS: Chlorhexidine 0.12% Oral Kit 15 ML UDC OROPHARYNG SCH ×2 (09:03→19:35)
--- NOTE | 2018-01-28 09:27 | XR ---
EXAM DATE: 01/28/2018 12:00 AM EDT AGE/SEX: 57 years / Male INDICATIONS: Fracture. CLINICAL DATA: This is the patient's subsequent encounter. Patient reports that signs and symptoms h ave been present for 4 - 6 days and indicates a pain score of Nonresponsive. MEDICAL/SURGICAL HISTORY: Non-responsive. . Left femoral aman. ORIF of the left tibial plateau. COMPARISON: [facility] – [place], CT ABDOMEN & PELVIS W CONTRAST, 01/27/2018. . FINDINGS: Examination of the pelvis demonstrates no evidence of fracture or dislocation. There is a partially i andreea left femoral intramedullary aman. Bony mineralization is normal. There is no widening of the s acroiliac joints. There is a Guerrero catheter in place. CONCLUSION: 1. No acute fracture. Electronically signed by: Darshan Britton MD 01/28/2018 9:26 AM EDT
[2018-01-28 13:06] LABS: ABG Base Excess 2.5 mmol/L (-2-2); ABG PCO2 45 mmHg (38-42); ABG PO2 74 mmHg (61-120)
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
--- NOTE | 2018-01-28 17:39 | P.PNNS ---
Subjective Interval history: Pt sedated on Fentanyl but held for exam. Pt opens eyes to voice. Not following commands. He is intubated. Silvestre bolt in place ICPs remain less than 20. <Ronald Whittington - Last Filed: 01/28/18 17:29> Physical Exam Vital signs: Vital Signs 01/27/18 18:00 01/27/18 19:42 01/27/18 20:00 Temperature 97.8 F Pulse Rate 96 H 100 H 104 H Respiratory Rate 17 12 Blood Pressure 117/66 Pulse Oximetry 94 L 100 01/27/18 22:00 01/28/18 00:00 01/28/18 01:42 Temperature 98.8 F Pulse Rate 104 H 106 H Respiratory Rate 12 12 Blood Pressure 120/64 Pulse Oximetry 99 98 01/28/18 02:00 01/28/18 03:26 01/28/18 04:00 Temperature 98.6 F Pulse Rate 110 H 109 H 110 H Respiratory Rate 12 12 Blood Pressure 112/63 Pulse Oximetry 97 01/28/18 04:02 01/28/18 06:00 01/28/18 08:00 Temperature 99.8 F H Pulse Rate 111 H 112 H Respiratory Rate 15 14 Blood Pressure 119/71 Pulse Oximetry 95 100 01/28/18 08:29 01/28/18 10:00 01/28/18 12:00 Temperature 99.5 F Pulse Rate 112 H 106 H 104 H Respiratory Rate 14 20 Blood Pressure 114/63 Pulse Oximetry 100 100 01/28/18 14:00 01/28/18 16:00 01/28/18 16:15 Temperature 99.6 F Pulse Rate 110 H 110 H Respiratory Rate 18 18 Blood Pressure 121/63 Pulse Oximetry 96 96 Intake & Output 01/27/18 01/28/18 01/28/18 18:59 06:59 18:59 Intake Total 2613 / 2613 2311 / 2311 Output Total 500 / 500 1350 / 1350 Balance 2113 / 2113 961 / 961 Weight 78.7 kg Intake: IV 1555 / 1555 1455 / 1455 NS Inj 1,000 ML @ 50 mls/hr IV. 1000 / 1000 1000 / 1000 CONT .Q20H [facility] Rx#:[id number] Ancef Inj 1,000 MG In NS Inj 200 / 200 100 / 100 100 / 100 100 ML @ 200 mls/hr IV.SIG Q8H [facility] Rx#:[id number] fentaNYL 10 mcg/mL Premix Drip 250 / 250 250 / 250 2,500 mcg In 250 ml @ 50 MCG/HR 5 mls/hr IV.SIG TITRATE PRN Rx #:[id number] Keppra Inj 500 MG In NS Inj 100 105 / 105 105 / 105 105 / 105 ML @ 400 mls/hr IV.SIG Q12H [facility] Rx#:[id number] Tube Feeding 218 / 218 736 / 736 Tube Irrigant 90 / 90 Water Bolus Amount 120 / 120 Other 750 / 750 Rbc As-3 Leukoreduced Unit 250 / 250 [id number] Rbc As-3 Leukoreduced Unit 500 / 500 [id number] Intake (Blood Product) Amt 0 / 0 Rbc As-3 Leukoreduced Unit 0 / 0 [id number] Rbc As-3 Leukoreduced Unit 0 / 0 [id number] Output: Urine Amount (Catheter) 500 / 500 1350 / 1350 Indwelling Temp Sensing 500 / 500 1350 / 1350 Catheter - Constitutional Comments: Sedated but currently held he opens eyes to voice. - Routine HEENT Exam Head: Absent: normocephalic, atraumatic (Abrasions right side of face.) Eye: Absent: PERRL (Right pupil 3mm left 2mm Reactive bilaterally.), conjunctival icterus ENT: Absent: oropharynx clear (Intubated.) - Routine Neck Exam Absent: full ROM (Cervical collar in place.) - Routine Respiratory Exam Present: patient mechanically ventilated (Volume control. Rate 16. Peep 5. FiO2 45%.), CTA bilaterally. Absent: respiratory distress, rhonchi, wheezes - Routine Cardiovascular Exam Present: RRR, S1, S2. Absent: murmur - Routine Abdominal Exam Present: soft, normoactive bowel sounds. Absent: distended, firm Comments: OG TFs at 60. - Routine Skin Exam Absent: cyanosis, erythema Comments: Abrasions right side of face. SCDs and multipodus boots in place. - Routine Neurological Exam Absent: alert (Sedated on Fentanyl but currently held for exam.) Pt opens eyes to voice. Not following commands. ICP 5 with [place]. Fentanyl being held. - Routine Psychiatric Exam Present: unable to assess - Urinary Catheter Management Indwelling Temp Sensing Catheter Cath placed during this visit: yes Reason for continuing: Hourly intake/output Insertion date: 01/24/18 Insertion time: 00:25 <Ronald Whittington - Last Filed: 01/28/18 17:29> Vital signs: Vital Signs 01/27/18 19:42 01/27/18 20:00 01/27/18 22:00 Temperature 97.8 F Pulse Rate 100 H 104 H 104 H Respiratory Rate 17 12 Blood Pressure 117/66 Pulse Oximetry 94 L 100 01/28/18 00:00 01/28/18 01:42 01/28/18 02:00 Temperature 98.8 F Pulse Rate 106 H 110 H Respiratory Rate 12 12 Blood Pressure 120/64 Pulse Oximetry 99 98 01/28/18 03:26 01/28/18 04:00 01/28/18 04:02 Temperature 98.6 F Pulse Rate 109 H 110 H Respiratory Rate 12 12 15 Blood Pressure 112/63 Pulse Oximetry 97 95 01/28/18 06:00 01/28/18 08:00 01/28/18 08:29 Temperature 99.8 F H Pulse Rate 111 H 112 H 112 H Respiratory Rate 14 14 Blood Pressure 119/71 Pulse Oximetry 100 100 01/28/18 10:00 01/28/18 12:00 01/28/18 14:00 Temperature 99.5 F Pulse Rate 106 H 104 H 110 H Respiratory Rate 20 Blood Pressure 114/63 Pulse Oximetry 100 01/28/18 16:00 01/28/18 16:15 01/28/18 18:00 Temperature 99.6 F Pulse Rate 110 H 107 H Respiratory Rate 18 18 Blood Pressure 121/63 Pulse Oximetry 96 96 Intake & Output 01/27/18 01/28/18 01/28/18 18:59 06:59 18:59 Intake Total 2613 / 2613 2311 / 2311 1115 / 1115 Output Total 500 / 500 1350 / 1350 1125 / 1125 Balance 2113 / 2113 961 / 961 -10 / -10 Weight 78.7 kg Intake: IV 1555 / 1555 1455 / 1455 205 / 205 NS Inj 1,000 ML @ 50 mls/hr IV. 1000 / 1000 1000 / 1000 CONT .Q20H [facility] Rx#:[id number] Ancef Inj 1,000 MG In NS Inj 200 / 200 100 / 100 100 / 100 100 ML @ 200 mls/hr IV.SIG Q8H [facility] Rx#:[id number] fentaNYL 10 mcg/mL Premix Drip 250 / 250 250 / 250 2,500 mcg In 250 ml @ 50 MCG/HR 5 mls/hr IV.SIG TITRATE PRN Rx #:[id number] Keppra Inj 500 MG In NS Inj 100 105 / 105 105 / 105 105 / 105 ML @ 400 mls/hr IV.SIG Q12H [facility] Rx#:[id number] Tube Feeding 218 / 218 736 / 736 660 / 660 Tube Irrigant 90 / 90 250 / 250 Water Bolus Amount 120 / 120 Other 750 / 750 Rbc As-3 Leukoreduced Unit 250 / 250 [id number] Rbc As-3 Leukoreduced Unit 500 / 500 [id number] Intake (Blood Product) Amt 0 / 0 Rbc As-3 Leukoreduced Unit 0 / 0 [id number] Rbc As-3 Leukoreduced Unit 0 / 0 [id number] Output: Urine Amount (Catheter) 500 / 500 1350 / 1350 1125 / 1125 Indwelling Temp Sensing 500 / 500 1350 / 1350 1125 / 1125 Catheter Other: # Bowel Movements 0 - Urinary Catheter Management Indwelling Temp Sensing Catheter Cath placed during this visit: no <West Rain - Last Filed: 01/28/18 18:33> Assessment and Plan - Assessment (1) Subdural hemorrhage Code(s): I62.00 - Nontraumatic subdural hemorrhage, unspecified Status: Acute (2) TBI (traumatic brain injury) Code(s): S06.9X9A - Unspecified intracranial injury with loss of consciousness of unspecified duration, initial encounter Status: Acute Qualifiers: Encounter type: initial encounter Loss of consciousness presence/duration: with LOC of unspecified duration Qualified Code(s): S06.9X9A - Unspecified intracranial injury with loss of consciousness of unspecified duration, initial encounter - Plan ~60 y/o male with right frontal subdural hematoma, right frontotemporal minimally displaced skull fracture, right temporal contusion, scattered traumatic subarachnoid hemorrhage, and C2 lateral mass fracture who presents as a GCS 7T. Repeat head CT 01/24 demonstrates blossoming of temporal contusion, very small increase in subdural hematoma (minimal mass effect, ~2 mm of midline shift). P: Continue ICP monitoring. D/C tomorrow if ICP stays good overnight. Maintain cervical collar (C2 lateral mass fracture). Continue with critical care. <Ronald Whittington - Last Filed: 01/28/18 17:29> - Attending Attestation The exam, history, and the medical decision-making described in the above note were completed with the assistance of the mid-level provider. I reviewed and agree with the findings presented. I attest that I had a [id number] encounter with the patient on the same day, and personally performed and documented my assessment and findings in the medical record. ICP remains low and now opening eyes and withdrawing but not following commands. Will remove ICP monitor tomorrow if remains low overnight and continue weaning ventilator and sedation status as tolerated. Discussed with nursing staff. <West Rain - Last Filed: 01/28/18 18:33>
[2018-01-28 21:12] LABS: ABG Base Excess 3.3 mmol/L (-2-2); ABG PCO2 50 mmHg (38-42); ABG PO2 80 mmHg (61-120)
[2018-01-28 22:35] LABS: ABG Base Excess 4.2 mmol/L (-2-2); ABG PCO2 40 mmHg (38-42); ABG PO2 77 mmHg (61-120)
[2018-01-29] MEDS: Sod Chloride 0.9% Inj 1,000 ML IV.CONT SCH (00:30)
[2018-01-29] MEDS: Pantoprazole Inj 40 MG Vial IV.PUSH SCH (00:45)
[2018-01-29] MEDS: Propofol 1000 mg/100 ml Inj 1,000 MG/100 ML BOTTLE IV.CONT PRN ×2 (01:27→18:30)
[2018-01-29] MEDS: Oral Hygiene Kit OROPHARYNG SCH ×3 (03:47→17:00)
[2018-01-29 05:02] LABS: Baso % (Auto) 0.2 % (0.0-2.0); Eos # (Auto) 0.1 th/mm3 (0.0-0.4); Eos % (Auto) 0.6 % (0.0-4.0); Hematocrit 28.8 % (39.0-51.0); Hemoglobin 9.6 gm/dL (13.0-17.0); Lymph # (Auto) 1.2 th/mm3 (1.0-4.8); Lymph % (Auto) 6.8 % (9.0-44.0); Mean Corpuscular HGB Conc 33.5 % (32.0-36.0); Mean Corpuscular Hemoglobin 30.7 pg (27.0-34.0); Mean Corpuscular Volume 91.5 fL (80.0-100.0); Mono % (Auto) 5.8 % (0.0-8.0); Neut # (Auto) 15.3 th/mm3 (1.8-7.7); Neut % (Auto) 86.6 % (16.0-70.0); Platelet Count 276 th/mm3 (150-450); Red Blood Count 3.15 mil/mm3 (4.50-5.90); Red Cell Distribution Width 17.8 % (11.6-17.2); White Blood Count 17.6 th/mm3 (4.0-11.0)
[2018-01-29 05:28] LABS: Anion Gap 5 meq/L (5-15); Blood Urea Nitrogen 10 mg/dL (7-18); Calcium 8.2 mg/dL (8.5-10.1); Carbon Dioxide 30.7 meq/L (21.0-32.0); Chloride 113 meq/L (98-107); Glomerular Filtration Rate Greater Than 89 mL/min (>89); Glucose,Random 113 mg/dL (74-106); Potassium 3.8 meq/L (3.5-5.1); Sodium 149 meq/L (136-145)
--- NOTE | 2018-01-29 05:40 | XR ---
EXAM DATE: 01/29/2018 6:00 AM EDT AGE/SEX: 57 years / Male INDICATIONS: Shortness of breath CLINICAL DATA: This is the patient's subsequent encounter. Patient reports that signs and symptoms h ave been present for 1 week and indicates a pain score of Nonresponsive. MEDICAL/SURGICAL HISTORY: Non-responsive. Non-responsive. COMPARISON: [facility] – [place], CHEST 1V SINGLE AP, 01/28/2018. . FINDINGS: Single AP view the chest. Endotracheal tube, nasogastric tube, and right subclavian central venous ca theter remain in place. Persistent bilateral lower lung zone parenchymal opacity and bilateral pleura l effusions. No significant interval change. CONCLUSION: No significant interval change. Persistent bilateral lower lung opacity and bilateral pleural effusio ns. Electronically signed by: Quang Lawler MD 01/29/2018 5:39 AM EDT
[2018-01-29 05:43] LABS: ABG Base Excess 3.7 mmol/L (-2-2); ABG PCO2 41 mmHg (38-42); ABG PO2 83 mmHg (61-120)
--- NOTE | 2018-01-29 07:24 | P.PNOP ---
Subjective Interval history: no changes. still not cleared for surgery Physical Exam Vital signs: Vital Signs 01/28/18 08:00 01/28/18 08:29 01/28/18 10:00 Temperature 99.8 F H Pulse Rate 112 H 112 H 106 H Respiratory Rate 14 14 Blood Pressure 119/71 Pulse Oximetry 100 100 01/28/18 12:00 01/28/18 14:00 01/28/18 16:00 Temperature 99.5 F 99.6 F Pulse Rate 104 H 110 H 110 H Respiratory Rate 20 18 Blood Pressure 114/63 121/63 Pulse Oximetry 100 96 01/28/18 16:15 01/28/18 18:00 01/28/18 20:00 Temperature 99.8 F H Pulse Rate 107 H 110 H Respiratory Rate 18 16 Blood Pressure 131/65 Pulse Oximetry 96 95 01/28/18 20:32 01/28/18 20:39 01/28/18 22:00 Temperature Pulse Rate 105 H 100 H Respiratory Rate 16 16 Blood Pressure Pulse Oximetry 96 01/29/18 00:00 01/29/18 02:00 01/29/18 03:50 Temperature 99.8 F H Pulse Rate 100 H 109 H Respiratory Rate 16 16 Blood Pressure 128/85 Pulse Oximetry 100 95 01/29/18 03:52 01/29/18 04:00 01/29/18 06:00 Temperature 99.6 F Pulse Rate 104 H 100 H 104 H Respiratory Rate 16 16 Blood Pressure 123/67 Pulse Oximetry 95 Intake & Output 01/28/18 01/29/18 01/29/18 18:59 06:59 18:59 Intake Total 1115 / 1115 890 / 890 Output Total 1125 / 1125 1200 / 1200 Balance -10 / -10 -310 / -310 Weight 78.6 kg Intake: IV 205 / 205 355 / 355 Ancef Inj 1,000 MG In NS Inj 100 / 100 100 ML @ 200 mls/hr IV.SIG Q8H [facility] Rx#:[id number] fentaNYL 10 mcg/mL Premix Drip 250 / 250 2,500 mcg In 250 ml @ 50 MCG/HR 5 mls/hr IV.SIG TITRATE PRN Rx #:[id number] Keppra Inj 500 MG In NS Inj 100 105 / 105 105 / 105 ML @ 400 mls/hr IV.SIG Q12H [facility] Rx#:[id number] Tube Feeding 660 / 660 415 / 415 Tube Irrigant 250 / 250 Water Bolus Amount 120 / 120 Output: Urine Amount (Catheter) 1125 / 1125 1200 / 1200 Indwelling Temp Sensing 1125 / 1125 1200 / 1200 Catheter Other: # Bowel Movements 0 Narrative: LLE: +exfix. pin sites clean RLE: +cap refill LUE: +sling - Urinary Catheter Management Indwelling Temp Sensing Catheter Cath placed during this visit: yes Reason for continuing: Hourly intake/output Insertion date: 01/24/18 Insertion time: 00:25 Results - Labs CBC & Chem 7: 01/29/18 04:48 01/29/18 04:48 Laboratory Results - last 24 hr 01/28/18 01/28/18 01/28/18 08:05 09:00 12:55 WBC RBC Hgb Hct MCV MCH MCHC RDW Plt Count MPV Neut % (Auto) Lymph % (Auto) [place] % (Auto) Eos % (Auto) Baso % (Auto) Neut # (Auto) Lymph # (Auto) [place] # (Auto) Eos # (Auto) Baso # (Auto) WBC Differential Differential Comment Puncture Site Right radial Right radial Right radial Patient Temperature 98.6 98.6 98.6 O2 Saturation 95 94 93 ABG pH 7.33 L 7.37 L 7.39 ABG pCO2 52 H* 50 H 45 H ABG pO2 97 80 74 ABG HCO3 27 H 28 H 27 H ABG O2 Content 17.9 14.2 17.8 ABG Base Excess 1.3 3.3 H 2.5 H ABG Methemoglobin 0.9 1.1 1.0 Saqib Test Present Present Present Hemoglobin 13.4 10.7 L 13.6 Carboxyhemoglobin 1.6 1.5 1.5 O2 Delivery Device Ventilator Ventilator Ventilator Vent Setting Ac/14/500/peep5 V/ac16/500/peep 5 Ac/16/500/peep 5 Inspired O2 45 45 45 Critical Value Yes No No Sodium Potassium Chloride Carbon Dioxide Anion Gap BUN Creatinine Estimated GFR Random Glucose Calcium 01/28/18 01/29/18 01/29/18 22:14 04:48 04:48 WBC 17.6 H RBC 3.15 L Hgb 9.6 L Hct 28.8 L MCV 91.5 MCH 30.7 MCHC 33.5 RDW 17.8 H Plt Count 276 MPV 7.0 Neut % (Auto) 86.6 H Lymph % (Auto) 6.8 L [place] % (Auto) 5.8 Eos % (Auto) 0.6 Baso % (Auto) 0.2 Neut # (Auto) 15.3 H Lymph # (Auto) 1.2 [place] # (Auto) 1.0 H Eos # (Auto) 0.1 Baso # (Auto) 0.0 WBC Differential . Differential Comment Auto diff final Puncture Site Right radial Patient Temperature 98.6 O2 Saturation 94 ABG pH 7.46 H ABG pCO2 40 ABG pO2 77 ABG HCO3 28 H ABG O2 Content 13.7 ABG Base Excess 4.2 H ABG Methemoglobin 1.2 Saqib Test Present Hemoglobin 10.3 L Carboxyhemoglobin 1.6 O2 Delivery Device Ventilator Vent Setting Ac/16/550/peep 5 Inspired O2 55 Critical Value No Sodium 149 H Potassium 3.8 Chloride 113 H Carbon Dioxide 30.7 Anion Gap 5 BUN 10 Creatinine 0.53 L Estimated GFR Greater than 89 Random Glucose 113 H Calcium 8.2 L 01/29/18 05:32 WBC RBC Hgb Hct MCV MCH MCHC RDW Plt Count MPV Neut % (Auto) Lymph % (Auto) [place] % (Auto) Eos % (Auto) Baso % (Auto) Neut # (Auto) Lymph # (Auto) [place] # (Auto) Eos # (Auto) Baso # (Auto) WBC Differential Differential Comment Puncture Site Right radial Patient Temperature 98.6 O2 Saturation 95 ABG pH 7.45 H ABG pCO2 41 ABG pO2 83 ABG HCO3 28 H ABG O2 Content 13.8 ABG Base Excess 3.7 H ABG Methemoglobin 1.0 Saqib Test Present Hemoglobin 10.3 L Carboxyhemoglobin 1.5 O2 Delivery Device Ventilator Vent Setting Ac/18/550/peep 5 Inspired O2 55 Critical Value No Sodium Potassium Chloride Carbon Dioxide Anion Gap BUN Creatinine Estimated GFR Random Glucose Calcium - Imaging Impressions Pelvis X-Ray 01/28/18 00:00 CONCLUSION: 1. No acute fracture. Chest X-Ray 01/29/18 06:00 CONCLUSION: No significant interval change. Persistent bilateral lower lung opacity and bilateral pleural effusions. Assessment and Plan - Assessment and Plan 1) Right Acetabulum fx 2) Left Periprosthetic Proximal Tibia Fx 3) Left Periprosthetic Distal Humerus Fx -NWB BLE -pin care BID of left ankle exfix -dressings changed to daily with xeroform/prim[place] over traumatic wound and just xreoform on pin sites -maintain sling and NWB on LUE -xrays of right elbow are negative -still not stable enough for surgery -will need to be able to be placed with head down for fixation of tibia and needs to be placed lateral for fixation of left humerus and right acetabulum -will order podus boot for left foot today to prevent and contracture -will order bucks traction for right hip --> 8lbs
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
[2018-01-29] MEDS: Senna/Docusate Sodium 8.6/50 MG Tablet PO SCH ×2 (08:26→22:03)
[2018-01-29] MEDS: Chlorhexidine 0.12% Oral Kit 15 ML UDC OROPHARYNG SCH ×2 (08:28→22:04)
--- NOTE | 2018-01-29 10:58 | P.PNNS ---
Subjective Interval history: Pt sedated and intubated. He is on Fentanyl and Diprivan. He opens eyes to voice. Not following commands. <Ronald Whittington - Last Filed: 01/29/18 18:56> Physical Exam Vital signs: Vital Signs 01/28/18 18:00 01/28/18 20:00 01/28/18 20:32 Temperature 99.8 F H Pulse Rate 107 H 110 H Respiratory Rate 16 16 Blood Pressure 131/65 Pulse Oximetry 95 96 01/28/18 20:39 01/28/18 22:00 01/29/18 00:00 Temperature 99.8 F H Pulse Rate 105 H 100 H 100 H Respiratory Rate 16 16 Blood Pressure 128/85 Pulse Oximetry 100 01/29/18 02:00 01/29/18 03:50 01/29/18 03:52 Temperature Pulse Rate 109 H 104 H Respiratory Rate 16 16 Blood Pressure Pulse Oximetry 95 01/29/18 04:00 01/29/18 06:00 01/29/18 08:00 Temperature 99.6 F 100.8 F H Pulse Rate 100 H 104 H 102 H Respiratory Rate 16 16 Blood Pressure 123/67 115/62 Pulse Oximetry 95 99 01/29/18 08:17 01/29/18 10:00 01/29/18 11:15 Temperature Pulse Rate 104 H 106 H Respiratory Rate 16 Blood Pressure Pulse Oximetry 100 100 01/29/18 12:00 01/29/18 12:51 01/29/18 14:00 Temperature 100.3 F H Pulse Rate 90 104 H Respiratory Rate 17 16 Blood Pressure 97/54 L Pulse Oximetry 92 L 97 Intake & Output 01/28/18 01/29/18 01/29/18 18:59 06:59 18:59 Intake Total 1115 / 1115 890 / 890 105 / 105 Output Total 1125 / 1125 1200 / 1200 Balance -10 / -10 -310 / -310 105 / 105 Weight 78.6 kg Intake: IV 205 / 205 355 / 355 105 / 105 Ancef Inj 1,000 MG In NS Inj 100 / 100 100 ML @ 200 mls/hr IV.SIG Q8H [facility] Rx#:[id number] fentaNYL 10 mcg/mL Premix Drip 250 / 250 2,500 mcg In 250 ml @ 50 MCG/HR 5 mls/hr IV.SIG TITRATE PRN Rx #:[id number] Keppra Inj 500 MG In NS Inj 100 105 / 105 105 / 105 105 / 105 ML @ 400 mls/hr IV.SIG Q12H [facility] Rx#:[id number] Tube Feeding 660 / 660 415 / 415 Tube Irrigant 250 / 250 Water Bolus Amount 120 / 120 Output: Urine Amount (Catheter) 1125 / 1125 1200 / 1200 Indwelling Temp Sensing 1125 / 1125 1200 / 1200 Catheter Other: # Bowel Movements 0 - Urinary Catheter Management Indwelling Temp Sensing Catheter Cath placed during this visit: no <West Rain - Last Filed: 01/29/18 16:49> Vital signs: Vital Signs 01/28/18 12:00 01/28/18 14:00 01/28/18 16:00 Temperature 99.5 F 99.6 F Pulse Rate 104 H 110 H 110 H Respiratory Rate 20 18 Blood Pressure 114/63 121/63 Pulse Oximetry 100 96 01/28/18 16:15 01/28/18 18:00 01/28/18 20:00 Temperature 99.8 F H Pulse Rate 107 H 110 H Respiratory Rate 18 16 Blood Pressure 131/65 Pulse Oximetry 96 95 01/28/18 20:32 01/28/18 20:39 01/28/18 22:00 Temperature Pulse Rate 105 H 100 H Respiratory Rate 16 16 Blood Pressure Pulse Oximetry 96 01/29/18 00:00 01/29/18 02:00 01/29/18 03:50 Temperature 99.8 F H Pulse Rate 100 H 109 H Respiratory Rate 16 16 Blood Pressure 128/85 Pulse Oximetry 100 95 01/29/18 03:52 01/29/18 04:00 01/29/18 06:00 Temperature 99.6 F Pulse Rate 104 H 100 H 104 H Respiratory Rate 16 16 Blood Pressure 123/67 Pulse Oximetry 95 01/29/18 08:17 Temperature Pulse Rate 104 H Respiratory Rate 16 Blood Pressure Pulse Oximetry 100 Intake & Output 01/28/18 01/29/18 01/29/18 18:59 06:59 18:59 Intake Total 1115 / 1115 890 / 890 Output Total 1125 / 1125 1200 / 1200 Balance -10 / -10 -310 / -310 Weight 78.6 kg Intake: IV 205 / 205 355 / 355 Ancef Inj 1,000 MG In NS Inj 100 / 100 100 ML @ 200 mls/hr IV.SIG Q8H PENDING SALE TO [facility] Rx#:[id number] fentaNYL 10 mcg/mL Premix Drip 250 / 250 2,500 mcg In 250 ml @ 50 MCG/HR 5 mls/hr IV.SIG TITRATE PRN Rx #:[id number] Keppra Inj 500 MG In NS Inj 100 105 / 105 105 / 105 ML @ 400 mls/hr IV.SIG Q12H PENDING SALE TO [facility] Rx#:[id number] Tube Feeding 660 / 660 415 / 415 Tube Irrigant 250 / 250 Water Bolus Amount 120 / 120 Output: Urine Amount (Catheter) 1125 / 1125 1200 / 1200 Indwelling Temp Sensing 1125 / 1125 1200 / 1200 Catheter Other: # Bowel Movements 0 - Constitutional Comments: Sedated and intubated in NAD. - Routine HEENT Exam Head: Absent: atraumatic (Abrasions right side of face. [place] bolt in place. ) Eye: Absent: PERRL (Right pupil 3mm Left 2mm.), conjunctival icterus ENT: Absent: oropharynx clear (ET intubated.) - Routine Neck Exam Present: trachea midline - Routine Respiratory Exam Present: patient mechanically ventilated (Volume controlled. Rate 16. FiO45%. Peep 8.), CTA bilaterally. Absent: respiratory distress, rhonchi, wheezes - Routine Cardiovascular Exam Present: RRR, S1, S2. Absent: murmur - Routine Abdominal Exam Present: soft, normoactive bowel sounds. Absent: distended - Routine Extremities Exam Comments: LUE external fixator, multipodus boot LLE. - Routine Skin Exam Absent: cyanosis, erythema Comments: Abrasions right side of head and face clean and dry. - Routine Neurological Exam Pt sedated on Fentanyl and Diprivan. Right pupil 3mm left 2mm reactive bilaterally. Not following commands. [place] bolt in place, ICP 4-5. - Detailed Neurological Exam: Coma Scale Eye Opening: To sound Verbal Response: None Motor Response: Normal flexion [place] Coma Scale Total: 8 - Routine Psychiatric Exam Present: unable to assess - Urinary Catheter Management Indwelling Temp Sensing Catheter Cath placed during this visit: yes Reason for continuing: Hourly intake/output Insertion date: 01/24/18 Insertion time: 00:25 <Ronald Whittington - Last Filed: 01/29/18 18:56> Assessment and Plan - Attending Attestation The exam, history, and the medical decision-making described in the above note were completed with the assistance of the mid-level provider. I reviewed and agree with the findings presented. I attest that I had a [id number] encounter with the patient on the same day, and personally performed and documented my assessment and findings in the medical record. ICPs remain normal with follow-up CT scan of the head with resolving areas of hematoma. Discontinue ICP monitor and wean ventilator sedation as tolerated with supportive care. <West Rain - Last Filed: 01/29/18 16:49> - Assessment (1) Subdural hemorrhage Code(s): I62.00 - Nontraumatic subdural hemorrhage, unspecified Status: Acute (2) TBI (traumatic brain injury) Code(s): S06.9X9A - Unspecified intracranial injury with loss of consciousness of unspecified duration, initial encounter Status: Acute Qualifiers: Encounter type: initial encounter Loss of consciousness presence/duration: with LOC of unspecified duration Qualified Code(s): S06.9X9A - Unspecified intracranial injury with loss of consciousness of unspecified duration, initial encounter - Plan ~60 y/o male with right frontal subdural hematoma, right frontotemporal minimally displaced skull fracture, right temporal contusion, scattered traumatic subarachnoid hemorrhage, and C2 lateral mass fracture who presents as a GCS 7T. Repeat head CT 01/24 demonstrates blossoming of temporal contusion, very small increase in subdural hematoma (minimal mass effect, ~2 mm of midline shift). P: Continue ICP monitoring. D/C tomorrow if ICP stays good overnight. Maintain cervical collar (C2 lateral mass fracture). Continue with critical care. Addendum: The Betadine gauze wrap was removed. The area was clean with Betadine. Lidocaine 1% with epi 1cc was used for local anesthetic. The bolt was removed. Two eleno were placed. Sharps were discarded in the sharps container. <Ronald Whittington - Last Filed: 01/29/18 18:56>
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
[2018-01-29] MEDS: Heparin - SQ 10,000 UNITS/ML Vial SQ SCH ×2 (11:04→17:00)
[2018-01-29] MEDS ORDERED: Lidocaine 1%/Epinephrine 1:100,000 Inj 50 ML Vial INFILTRATN ONE ×2 (12:45→17:30)
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
[2018-01-29] MEDS: fentaNYL 10 mcg/mL Premix Drip 2,500 MCG/250 ML BAG IV.SIG PRN (16:59)
[2018-01-29 21:54] LABS: ABG Base Excess 4.6 mmol/L (-2-2); ABG PCO2 36 mmHg (38-42); ABG PO2 57 mmHg (61-120)
[2018-01-29] MEDS: Piperacil/Tazo 3.375 GM Premix 50 ML IV.SIG SCH (22:50)
[2018-01-29] MEDS ORDERED: Vancomycin Inj 1,000 MG in Sodium Chlor 0.9% Inj 250 ML IV.SIG ONE (23:00)
[2018-01-30] MEDS ORDERED: Sod Chloride 0.9% Inj 1,000 ML IV.SIG ONE (00:30)
[2018-01-30] MEDS: Oral Hygiene Kit OROPHARYNG SCH ×4 (00:35→16:48)
[2018-01-30] MEDS: Sod Chloride 0.9% Inj 1,000 ML IV.CONT SCH ×2 (00:36→20:28)
[2018-01-30 00:37] LABS: Bilirubin,Urine Negative (Negative); Clarity,Urine Hazy (Clear); Color,Urine Amber (Yellw/Straw); Glucose,Urine (UA) Negative (Negative); Leukocyte Esterase,Urine Negative (Negative); Mucus,Urine Few /lpf (Occasional); Nitrite,Urine Negative (Negative); Specific Gravity,Urine 1.027 (1.002-1.035)
[2018-01-30] MEDS: Norepinephrine Inj 4 MG in Sodium Chlor 0.9% Inj 246 ML IV.SIG PRN (02:10)
[2018-01-30] MEDS: Pantoprazole Inj 40 MG Vial IV.PUSH SCH (02:24)
[2018-01-30] MEDS: Heparin - SQ 10,000 UNITS/ML Vial SQ SCH ×3 (02:25→17:10)
[2018-01-30 04:48] LABS: Baso % (Auto) 0.1 % (0.0-2.0); Eos # (Auto) 0.2 th/mm3 (0.0-0.4); Hematocrit 26.9 % (39.0-51.0); Hemoglobin 8.9 gm/dL (13.0-17.0); Lymph # (Auto) 1.4 th/mm3 (1.0-4.8); Lymph % (Auto) 6.6 % (9.0-44.0); Mean Corpuscular HGB Conc 33.1 % (32.0-36.0); Mean Corpuscular Hemoglobin 30.7 pg (27.0-34.0); Mean Corpuscular Volume 92.7 fL (80.0-100.0); Mean Platelet Volume 7.4 fL (7.0-11.0); Mono # (Auto) 1.6 th/mm3 (0.0-0.9); Mono % (Auto) 7.5 % (0.0-8.0); Neut # (Auto) 17.7 th/mm3 (1.8-7.7); Neut % (Auto) 84.8 % (16.0-70.0); Platelet Count 313 th/mm3 (150-450); Red Blood Count 2.91 mil/mm3 (4.50-5.90); Red Cell Distribution Width 18.1 % (11.6-17.2)
[2018-01-30] MEDS: Piperacil/Tazo 3.375 GM Premix 50 ML IV.SIG SCH ×2 (04:54→09:19)
[2018-01-30 05:14] LABS: Anion Gap 6 meq/L (5-15); Blood Urea Nitrogen 13 mg/dL (7-18); Calcium 7.6 mg/dL (8.5-10.1); Carbon Dioxide 28.3 meq/L (21.0-32.0); Chloride 111 meq/L (98-107); Glomerular Filtration Rate Greater Than 89 mL/min (>89); Glucose,Random 128 mg/dL (74-106); Potassium 3.9 meq/L (3.5-5.1); Sodium 145 meq/L (136-145)
--- NOTE | 2018-01-30 07:01 | P.PNOP ---
Subjective Interval history: right acetabulum fx left distal humerus fx left prox tibia fx intubated/sedated. bolt removed yesterday Physical Exam Vital signs: Vital Signs 01/29/18 08:00 01/29/18 08:17 01/29/18 10:00 Temperature 100.8 F H Pulse Rate 102 H 104 H 106 H Respiratory Rate 16 16 Blood Pressure 115/62 Pulse Oximetry 99 100 01/29/18 11:15 01/29/18 12:00 01/29/18 12:51 Temperature 100.3 F H Pulse Rate 90 Respiratory Rate 17 16 Blood Pressure 97/54 L Pulse Oximetry 100 92 L 97 01/29/18 14:00 01/29/18 16:00 01/29/18 16:34 Temperature 99.5 F Pulse Rate 104 H 94 H 93 H Respiratory Rate 16 16 Blood Pressure 93/53 L Pulse Oximetry 95 95 01/29/18 18:00 01/29/18 20:00 01/29/18 20:36 Temperature 102.3 F H Pulse Rate 83 92 H 83 Respiratory Rate 16 16 Blood Pressure 95/57 L Pulse Oximetry 97 01/29/18 20:37 01/29/18 22:00 01/29/18 23:37 Temperature Pulse Rate 92 H Respiratory Rate 16 16 Blood Pressure Pulse Oximetry 97 95 01/30/18 00:00 01/30/18 02:00 01/30/18 03:29 Temperature 99.9 F H Pulse Rate 77 76 80 Respiratory Rate 16 16 Blood Pressure 92/55 L Pulse Oximetry 99 01/30/18 04:00 01/30/18 06:00 Temperature 99.3 F Pulse Rate 77 84 Respiratory Rate 16 Blood Pressure 103/63 Pulse Oximetry 100 Intake & Output 01/29/18 01/30/18 01/30/18 18:59 06:59 18:59 Intake Total 1415 / 1415 3600 / 3600 Output Total 625 / 625 550 / 550 Balance 790 / 790 3050 / 3050 Weight 94 kg Intake: IV 455 / 455 2555 / 2555 Diprivan 1000 mg/100 ml Inj 1, 100 / 100 000 mg In 100 ml @ 5 MCG/KG/MIN 2.361 mls/hr IV.CONT TITRATE PRN Rx#:[id number] NS Inj 1,000 ML @ 30 mls/hr IV. 1000 / 1000 CONT .Q24H [facility] Rx#:[id number] Ofirmev Inj 1,000 mg In 100 ml 100 / 100 @ 400 mls/hr IV.SIG Q6H PRN Rx# :[id number] Zosyn 3.375 GM Premix 50 ML @ 100 / 100 100 mls/hr IV.SIG Q6H [facility] Rx#: [id number] NS Inj 1,000 ML @ 1000 mls/hr 1000 / 1000 IV.SIG .Q1H ONE Rx#:[id number] Vancomycin Inj 1,000 MG In NS 250 / 250 Inj 250 ML @ 250 mls/hr IV.SIG ONCE ONE Rx#:[id number] fentaNYL 10 mcg/mL Premix Drip 250 / 250 2,500 mcg In 250 ml @ 50 MCG/HR 5 mls/hr IV.SIG TITRATE PRN Rx #:[id number] Keppra Inj 500 MG In NS Inj 100 105 / 105 105 / 105 ML @ 400 mls/hr IV.SIG Q12H [facility] Rx#:[id number] Tube Feeding 660 / 660 985 / 985 Tube Irrigant 60 / 60 Water Bolus Amount 300 / 300 Output: Urine Amount (Catheter) 625 / 625 550 / 550 Indwelling Temp Sensing 625 / 625 550 / 550 Catheter Narrative: RLE: +bucks traction LLE: +exfix. pin sites clean . LUE: +splint - Urinary Catheter Management Indwelling Temp Sensing Catheter Cath placed during this visit: yes Reason for continuing: Hourly intake/output Insertion date: 01/24/18 Insertion time: 00:25 Results - Labs CBC & Chem 7: 01/30/18 04:20 01/30/18 04:20 Laboratory Results - last 24 hr 01/29/18 01/29/18 01/30/18 21:39 21:42 04:20 WBC 21.0 H RBC 2.91 L Hgb 8.9 L Hct 26.9 L MCV 92.7 MCH 30.7 MCHC 33.1 RDW 18.1 H Plt Count 313 MPV 7.4 Neut % (Auto) 84.8 H Lymph % (Auto) 6.6 L [place] % (Auto) 7.5 Eos % (Auto) 1.0 Baso % (Auto) 0.1 Neut # (Auto) 17.7 H Lymph # (Auto) 1.4 [place] # (Auto) 1.6 H Eos # (Auto) 0.2 Baso # (Auto) 0.0 WBC Differential . Differential Comment Auto diff final Puncture Site Left pedal Patient Temperature 98.6 O2 Saturation 90 ABG pH 7.50 H ABG pCO2 36 L ABG pO2 57 L* ABG HCO3 28 H ABG O2 Content 11.7 L ABG Base Excess 4.6 H ABG Methemoglobin 0.8 Hemoglobin 9.2 L Carboxyhemoglobin 1.6 O2 Delivery Device Ventilator Vent Setting [id number] Inspired O2 45 Critical Value Yes Sodium Potassium Chloride Carbon Dioxide Anion Gap BUN Creatinine Estimated GFR Random Glucose Calcium Urine Color Tiarra Urine Clarity Hazy H Urine pH 6.0 Ur Specific [place] 1.027 Urine Protein Negative Urine Glucose (UA) Negative Urine Ketones Negative Urine Occult Blood Negative Urine Nitrate Negative Urine Bilirubin Negative Urine Urobilinogen 2.0 H Ur Leukocyte Esterase Negative Urine RBC 3 Urine WBC 3 Urine Mucus Few H Ur Microscopic Review Not Reportable 01/30/18 04:20 WBC RBC Hgb Hct MCV MCH MCHC RDW Plt Count MPV Neut % (Auto) Lymph % (Auto) [place] % (Auto) Eos % (Auto) Baso % (Auto) Neut # (Auto) Lymph # (Auto) [place] # (Auto) Eos # (Auto) Baso # (Auto) WBC Differential Differential Comment Puncture Site Patient Temperature O2 Saturation ABG pH ABG pCO2 ABG pO2 ABG HCO3 ABG O2 Content ABG Base Excess ABG Methemoglobin Hemoglobin Carboxyhemoglobin O2 Delivery Device Vent Setting Inspired O2 Critical Value Sodium 145 Potassium 3.9 Chloride 111 H Carbon Dioxide 28.3 Anion Gap 6 BUN 13 Creatinine 0.49 L Estimated GFR Greater than 89 Random Glucose 128 H Calcium 7.6 L Urine Color Urine Clarity Urine pH Ur Specific [place] Urine Protein Urine Glucose (UA) Urine Ketones Urine Occult Blood Urine Nitrate Urine Bilirubin Urine Urobilinogen Ur Leukocyte Esterase Urine RBC Urine WBC Urine Mucus Ur Microscopic Review - Imaging Impressions Head CT 01/29/18 00:00 CONCLUSION: 1. Improving subarachnoid hemorrhage. 2. Evolving hemorrhagic contusion in the right temporal lobe. Small right- sided subdural hematoma remains in the region of the middle cranial fossa and extending over the convexities posteriorly. 3. Stable calvarial and skull base fractures on the right. 4. Opacified sphenoid sinus. . Assessment and Plan - Assessment and Plan 1) Right Acetabulum fx 2) Left Periprosthetic Proximal Tibia Fx 3) Left Periprosthetic Distal Humerus Fx -NWB BLE -pin care BID of left ankle exfix -dressings changed to daily with xeroform/primapore over traumatic wound and just xreoform on pin sites -maintain sling and NWB on LUE -xrays of right elbow are negative -still not stable enough for surgery -will need to be able to be placed with head down for fixation of tibia and needs to be placed lateral for fixation of left humerus and right acetabulum -will order podus boot for left foot today to prevent and contracture -awaiting neuro surg clearance before can proceed with procedures for right acetabulum, left prox tib, and left distal humerus
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
[2018-01-30] MEDS: Senna/Docusate Sodium 8.6/50 MG Tablet PO SCH ×2 (09:19→20:28)
[2018-01-30] MEDS: Chlorhexidine 0.12% Oral Kit 15 ML UDC OROPHARYNG SCH ×2 (09:20→20:29)
--- NOTE | 2018-01-30 09:33 | P.PNNS ---
Subjective Interval history: Pt with eyes open. Possibly following commands with right hand. He cassandra consultant hand spontaneously. Slight movement in toes on right. Physical Exam Vital signs: Vital Signs 01/29/18 10:00 01/29/18 11:15 01/29/18 12:00 Temperature 100.3 F H Pulse Rate 106 H 90 Respiratory Rate 17 Blood Pressure 97/54 L Pulse Oximetry 100 92 L 01/29/18 12:51 01/29/18 14:00 01/29/18 16:00 Temperature 99.5 F Pulse Rate 104 H 94 H Respiratory Rate 16 16 Blood Pressure 93/53 L Pulse Oximetry 97 95 01/29/18 16:34 01/29/18 18:00 01/29/18 20:00 Temperature 102.3 F H Pulse Rate 93 H 83 92 H Respiratory Rate 16 16 Blood Pressure 95/57 L Pulse Oximetry 95 97 01/29/18 20:36 01/29/18 20:37 01/29/18 22:00 Temperature Pulse Rate 83 92 H Respiratory Rate 16 16 Blood Pressure Pulse Oximetry 97 01/29/18 23:37 01/30/18 00:00 01/30/18 02:00 Temperature 99.9 F H Pulse Rate 77 76 Respiratory Rate 16 16 Blood Pressure 92/55 L Pulse Oximetry 95 01/30/18 03:29 01/30/18 04:00 01/30/18 06:00 Temperature 99.3 F Pulse Rate 80 77 84 Respiratory Rate 16 16 Blood Pressure 103/63 Pulse Oximetry 99 100 01/30/18 08:03 Temperature Pulse Rate 80 Respiratory Rate 16 Blood Pressure Pulse Oximetry 95 Intake & Output 01/29/18 01/30/18 01/30/18 18:59 06:59 18:59 Intake Total 1415 / 1415 3600 / 3600 Output Total 625 / 625 550 / 550 Balance 790 / 790 3050 / 3050 Weight 94 kg Intake: IV 455 / 455 2555 / 2555 Diprivan 1000 mg/100 ml Inj 1, 100 / 100 000 mg In 100 ml @ 5 MCG/KG/MIN 2.361 mls/hr IV.CONT TITRATE PRN Rx#:[id number] NS Inj 1,000 ML @ 30 mls/hr IV. 1000 / 1000 CONT .Q24H [facility] Rx#:[id number] Ofirmev Inj 1,000 mg In 100 ml 100 / 100 @ 400 mls/hr IV.SIG Q6H PRN Rx# :[id number] Zosyn 3.375 GM Premix 50 ML @ 100 / 100 100 mls/hr IV.SIG Q6H [facility] Rx#: [id number] NS Inj 1,000 ML @ 1000 mls/hr 1000 / 1000 IV.SIG .Q1H [facility] Rx#:[id number] Vancomycin Inj 1,000 MG In NS 250 / 250 Inj 250 ML @ 250 mls/hr IV.SIG ONCE ONE Rx#:[id number] fentaNYL 10 mcg/mL Premix Drip 250 / 250 2,500 mcg In 250 ml @ 50 MCG/HR 5 mls/hr IV.SIG TITRATE PRN Rx #:[id number] Keppra Inj 500 MG In NS Inj 100 105 / 105 105 / 105 ML @ 400 mls/hr IV.SIG Q12H [facility] Rx#:[id number] Tube Feeding 660 / 660 985 / 985 Tube Irrigant 60 / 60 Water Bolus Amount 300 / 300 Output: Urine Amount (Catheter) 625 / 625 550 / 550 Indwelling Temp Sensing 625 / 625 550 / 550 Catheter - Constitutional no acute distress Comments: Sedated on Fentanyl. Placed on Levophed for hypotension and Diprivan discontinued. - Routine HEENT Exam Head: Absent: atraumatic Eye: Absent: PERRL (Right pupil 3mm left 2 mm reactive bilaterally.) ENT: Absent: oropharynx clear (ET intubated.) - Routine Neck Exam Absent: full ROM Comments: Tensas J cervical collar remains in place. - Routine Respiratory Exam Present: patient mechanically ventilated, CTA bilaterally Comments: Pressure controlled. Rate 16. FiO2 45%. Peep 8. - Routine Cardiovascular Exam Present: RRR, S1, S2. Absent: murmur Comments: Pt on Levophed drip for hypotension. - Routine Abdominal Exam Present: soft, normoactive bowel sounds. Absent: distended, firm - Routine Skin Exam Absent: cyanosis, erythema - Routine Neurological Exam Present: alert. Absent: moving all extremities (RLE in air boot. LLE external fixator. LUE splinted and bandaged. Leathersmith right hand spontaneously and appears to be following commands.) Pt opens eyes and tracts to both sides. Right pupil 3mm left 2mm reactive bilaterally. He cassandra consultant his right hand spontaneously and appears to command. - Detailed Neurological Exam: Coma Scale Eye Opening: Spontaneous Verbal Response: None Motor Response: Obey commands Addison Coma Scale Total: 11 - Routine Psychiatric Exam Present: cooperative, unable to assess. Absent: anxious, agitated - Urinary Catheter Management Indwelling Temp Sensing Catheter Cath placed during this visit: yes Reason for continuing: Hourly intake/output Insertion date: 01/24/18 Insertion time: 00:25 Assessment and Plan - Assessment (1) Subdural hemorrhage Code(s): I62.00 - Nontraumatic subdural hemorrhage, unspecified Status: Acute (2) TBI (traumatic brain injury) Code(s): S06.9X9A - Unspecified intracranial injury with loss of consciousness of unspecified duration, initial encounter Status: Acute Qualifiers: Encounter type: initial encounter Loss of consciousness presence/duration: with LOC of unspecified duration Qualified Code(s): S06.9X9A - Unspecified intracranial injury with loss of consciousness of unspecified duration, initial encounter - Plan ~60 y/o male with right frontal subdural hematoma, right frontotemporal minimally displaced skull fracture, right temporal contusion, scattered traumatic subarachnoid hemorrhage, and C2 lateral mass fracture who presents as a GCS 7T. Repeat head CT 01/24 demonstrates blossoming of temporal contusion, very small increase in subdural hematoma (minimal mass effect, ~2 mm of midline shift). P: Maintain cervical collar (C2 lateral mass fracture). Continue with critical care. Okay for orthopedics to proceed with procedures.
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
[2018-01-30] MEDS ORDERED: Vancomycin Inj 1,000 MG in Sodium Chlor 0.9% Inj 250 ML IV.SIG ONE (12:56)
[2018-01-30] MEDS ORDERED: Vancomycin Consult Pharmacy OTHER PRN (12:56)
[2018-01-30] MEDS ORDERED: Propofol Inj 500 MG/50 ML Vial ONE (13:46)
[2018-01-30] MEDS: Piperacil/Tazo 4.5 GM Premix 4.5 GM/100 ML BAG IV.SIG SCH ×2 (13:51→20:28)
[2018-01-30] MEDS: fentaNYL 10 mcg/mL Premix Drip 2,500 MCG/250 ML BAG IV.SIG PRN (14:10)
--- NOTE | 2018-01-30 14:40 | P.PCN ---
Procedure: Diagnosis: Hypoxemic respiratory failure Procedure: Therapeutic flexible bronchoscopy Narrative: Timeout performed, patient suitably identified. Patient located in the intensive care unit on chemical ventilation through orotracheal intubation. Usual ICU monitoring devices are 100% oxygen and ventilator rate 18 /min. Through a side-port in the ventilator circuit the flexible bronchoscope was delivered in the tracheobronchial tree. The immediate main trachea and mainstem bronchi were clean and normal. Mucosa not inflamed. Distal bronchi had occasional inspissated secretions of white thick sputum but for the most part were clean. All were suctioned and inspected. Branching anatomy was normal. The bronchoscope and endotracheal tube were then withdrawn to the level of the cricoid cartilage such that mechanical ventilation could be continued but visualization was then provided for the insertion of a percutaneous tracheostomy. Following insertion of the new trach tube the scope was delivered down the new trach tube to the main trachea to confirm good position in the main trachea located suitably above the bifurcation. There was no bleeding. The inner cannula was then placed mechanical ventilation was immediately restarted. Pulse oximetry was maintained at greater than 95% throughout the procedure.
[2018-01-30] MEDS: Vancomycin Inj 1,750 MG in Sodium Chlor 0.9% Inj 500 ML IV.SIG SCH (15:03)
[2018-01-30] MEDS ORDERED: Propofol Inj 500 MG/50 ML Vial IV.PUSH ONE (15:30)
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
[2018-01-31] MEDS: Oral Hygiene Kit OROPHARYNG SCH ×4 (00:11→17:16)
[2018-01-31] MEDS: Propofol 1000 mg/100 ml Inj 1,000 MG/100 ML BOTTLE IV.CONT PRN ×2 (01:03→18:29)
[2018-01-31] MEDS: Piperacil/Tazo 4.5 GM Premix 4.5 GM/100 ML BAG IV.SIG SCH ×4 (01:20→20:39)
[2018-01-31] MEDS: Pantoprazole Inj 40 MG Vial IV.PUSH SCH (01:20)
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
[2018-01-31] MEDS: Vancomycin Inj 1,750 MG in Sodium Chlor 0.9% Inj 500 ML IV.SIG SCH ×2 (04:45→17:21)
[2018-01-31 05:14] LABS: Baso # (Auto) 0.1 th/mm3 (0.0-0.2); Baso % (Auto) 0.3 % (0.0-2.0); Eos # (Auto) 0.2 th/mm3 (0.0-0.4); Eos % (Auto) 1.2 % (0.0-4.0); Hematocrit 28.4 % (39.0-51.0); Hemoglobin 9.4 gm/dL (13.0-17.0); Lymph # (Auto) 1.7 th/mm3 (1.0-4.8); Lymph % (Auto) 8.6 % (9.0-44.0); Mean Corpuscular HGB Conc 33.1 % (32.0-36.0); Mean Corpuscular Hemoglobin 31.1 pg (27.0-34.0); Mean Platelet Volume 7.3 fL (7.0-11.0); Mono # (Auto) 1.8 th/mm3 (0.0-0.9); Mono % (Auto) 9.2 % (0.0-8.0); Neut # (Auto) 15.9 th/mm3 (1.8-7.7); Neut % (Auto) 80.7 % (16.0-70.0); Platelet Count 387 th/mm3 (150-450); Red Blood Count 3.02 mil/mm3 (4.50-5.90); Red Cell Distribution Width 18.1 % (11.6-17.2); White Blood Count 19.7 th/mm3 (4.0-11.0)
[2018-01-31 05:34] LABS: Anion Gap 4 meq/L (5-15); Blood Urea Nitrogen 13 mg/dL (7-18); Calcium 8.4 mg/dL (8.5-10.1); Carbon Dioxide 32.1 meq/L (21.0-32.0); Chloride 109 meq/L (98-107); Glomerular Filtration Rate Greater Than 89 mL/min (>89); Glucose,Random 90 mg/dL (74-106); Potassium 4.2 meq/L (3.5-5.1); Sodium 145 meq/L (136-145)
[2018-01-31 06:27] LABS: ABG Base Excess 3.7 mmol/L (-2-2); ABG PCO2 56 mmHg (38-42); ABG PO2 71 mmHg (61-120)
[2018-01-31] MEDS: Norepinephrine Inj 4 MG in Sodium Chlor 0.9% Inj 246 ML IV.SIG PRN (06:32)
[2018-01-31] MEDS ORDERED: Bisacodyl 10 MG Supp RECTAL ONE (07:05)
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
[2018-01-31] MEDS: Chlorhexidine 0.12% Oral Kit 15 ML UDC OROPHARYNG SCH ×2 (08:37→20:40)
[2018-01-31] MEDS: Senna/Docusate Sodium 8.6/50 MG Tablet PO SCH ×2 (08:38→20:39)
[2018-01-31] MEDS: fentaNYL 10 mcg/mL Premix Drip 2,500 MCG/250 ML BAG IV.SIG PRN (09:14)
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
[2018-01-31] MEDS ORDERED: Post-op Orders (for Pharmacy) OTHER STA (12:18)
--- NOTE | 2018-01-31 12:25 | P.OP ---
- Preoperative Diagnosis (1) Open fracture of left proximal tibia Date of procedure: 01/31/18 Procedure: Removal of external fixation, removal of deep hardware, open reduction internal fixation left tibia Anesthesia: GETA Surgeon: Mack Snyder MD Operation and Findings: Patient was seen and evaluated preoperatively. He has multiple injuries. Informed consent was obtained for treatment of his left tibia from his family. Operative site was marked. He is brought to operating room. He is given IV sedation and general anesthesia. He is on scheduled IV antibiotic's. Timeout procedure was performed. Procedure began with removal of external fixation. Clamps were loosened. Clamps and bars were now removed from the pins. The pins were now removed. The left leg was now prepped with alcohol followed Hibiclens and draped in usual sterile fashion. Next attention was turned towards removal of the deep hardware. He had a proximal tibia plate. Incision was made over the anterolateral tibia through previous scars. Subcutaneous tissue was dissected with Bovie. Iliotibial band was elevated. The hardware was exposed. The screws were identified. All the screws were now removed. The plate was now removed. Next attention was turned towards open reduction to fixation of the fracture. A Synthes 4.5 mm plate was selected. Traction was applied. The fracture was reduced. The plate was placed underneath the anterior tibialis muscle. The plate was provisionally held both K wires. With the fracture held in a reduced position 4.5 cortical screws were placed above and below fracture. There was comminution on the fracture site. Multiple cortical screws were placed above and below fracture. Fluoroscopy confirmed well aligned fracture. Additional locking screws were placed proximally. All screws were predrilled and premeasured for appropriate length. The fracture appeared to be in anatomic alignment. Patient does have sniffing varus deformity of his knee. Incision was thoroughly irrigated. Fascia was closed with #1 Vicryl, subcu tissues closed with 3-0 Vicryl, and skin was closed with eleno. Sterile dressings were applied. Patient was transferred back to intensive care in critical condition. He will need additional surgery for his left humerus and right acetabulum.
--- NOTE | 2018-01-31 12:51 | P.PNOP ---
Subjective Interval history: Transferred back to intensive care unit in stable condition Physical Exam Vital signs: Vital Signs 01/30/18 14:00 01/30/18 14:40 01/30/18 15:54 Temperature Pulse Rate 90 90 Respiratory Rate 28 H Blood Pressure Pulse Oximetry 100 100 01/30/18 16:00 01/30/18 18:00 01/30/18 20:00 Temperature 100.2 F H 100.6 F H Pulse Rate 94 H 94 H 98 H Respiratory Rate 16 16 Blood Pressure 106/62 108/63 Pulse Oximetry 94 L 95 01/30/18 20:24 01/30/18 20:25 01/30/18 21:56 Temperature Pulse Rate 103 H Respiratory Rate 18 25 H 16 Blood Pressure Pulse Oximetry 96 01/30/18 22:00 01/31/18 00:00 01/31/18 00:11 Temperature 100.0 F H Pulse Rate 103 H 99 H Respiratory Rate 16 18 Blood Pressure 112/63 Pulse Oximetry 96 98 01/31/18 02:00 01/31/18 04:00 01/31/18 04:15 Temperature 97.0 F L Pulse Rate 98 H 103 H 92 H Respiratory Rate 16 16 Blood Pressure 97/63 L Pulse Oximetry 91 L 97 01/31/18 06:00 01/31/18 08:00 01/31/18 08:15 Temperature 100.0 F H Pulse Rate 102 H 93 H 91 H Respiratory Rate 20 20 Blood Pressure 107/62 Pulse Oximetry 94 L 96 01/31/18 10:00 Temperature Pulse Rate 96 H Respiratory Rate Blood Pressure Pulse Oximetry Intake & Output 01/30/18 01/31/18 01/31/18 18:59 06:59 18:59 Intake Total 1483.5 / 1483.5 2693.5 / 2693.5 850 / 850 Output Total 1200 / 1200 1250 / 1250 1000 / 1000 Balance 283.5 / 283.5 1443.5 / 1443.5 -150 / -150 Weight 92.9 kg Intake: IV 1122.5 / 1122.5 2167.5 / 2167.5 350 / 350 Diprivan 1000 mg/100 ml Inj 1, 100 / 100 000 mg In 100 ml @ 5 MCG/KG/MIN 2.361 mls/hr IV.CONT TITRATE PRN Rx#:[id number] NS Inj 1,000 ML @ 60 mls/hr IV. 1000 / 1000 CONT .[id number] [facility] Rx#:[id number] Ofirmev Inj 1,000 mg In 100 ml 100 / 100 100 / 100 @ 400 mls/hr IV.SIG Q6H PRN Rx# :[id number] Levophed Inj 4 MG In NS Inj 246 250 / 250 ML @ 2 MCG/MIN 7.5 mls/hr IV. SIG TITRATE PRN Rx#:[id number] Zosyn 3.375 GM Premix 50 ML @ 50 / 50 100 mls/hr IV.SIG Q6H [facility] Rx#: [id number] Zosyn 4.5 GM Premix 4.5 gm In 100 / 100 200 / 200 100 / 100 100 ml @ 200 mls/hr IV.SIG Q6H [facility] Rx#:[id number] Vancomycin Inj 1,750 MG In NS 517.5 / 517.5 517.5 / 517.5 Inj 500 ML @ 250 mls/hr IV.SIG Q12H [facility] Rx#:[id number] fentaNYL 10 mcg/mL Premix Drip 250 / 250 250 / 250 2,500 mcg In 250 ml @ 50 MCG/HR 5 mls/hr IV.SIG TITRATE PRN Rx #:[id number] Keppra Inj 500 MG In NS Inj 100 105 / 105 ML @ 400 mls/hr IV.SIG Q12H [facility] Rx#:[id number] Tube Feeding 261 / 261 376 / 376 Tube Irrigant 100 / 100 Water Bolus Amount 150 / 150 Anesthesia Amount 500 / 500 Output: Estimated Blood Loss 150 / 150 Urine Amount (Catheter) 1200 / 1200 1250 / 1250 850 / 850 Indwelling Temp Sensing 1200 / 1200 1250 / 1250 850 / 850 Catheter Other: # Bowel Movements 0 0 Narrative: Splint left upper extremity intact distal pulses and good capillary refills Right lower extremity Reyes's traction applied. Intact distal pulses good capillary refills. No laxity at the knee or ankle. Left lower extremity: Clean dry dressings intact over femur and tibia. Minimal swelling. Distally intact pulses with good capillary refills. - Urinary Catheter Management Indwelling Temp Sensing Catheter Cath placed during this visit: yes Reason for continuing: Hourly intake/output Insertion date: 01/24/18 Insertion time: 00:25 Results - Labs CBC & Chem 7: 01/31/18 04:50 01/31/18 04:50 Laboratory Results - last 24 hr 01/31/18 01/31/18 01/31/18 04:50 04:50 06:14 WBC 19.7 H RBC 3.02 L Hgb 9.4 L Hct 28.4 L MCV 94.0 MCH 31.1 MCHC 33.1 RDW 18.1 H Plt Count 387 MPV 7.3 Neut % (Auto) 80.7 H Lymph % (Auto) 8.6 L Sutter % (Auto) 9.2 H Eos % (Auto) 1.2 Baso % (Auto) 0.3 Neut # (Auto) 15.9 H Lymph # (Auto) 1.7 Sutter # (Auto) 1.8 H Eos # (Auto) 0.2 Baso # (Auto) 0.1 WBC Differential . Differential Comment Auto diff final Puncture Site Right radial Patient Temperature 98.6 O2 Saturation 91 ABG pH 7.34 L ABG pCO2 56 H* ABG pO2 71 ABG HCO3 29 H ABG O2 Content 17.3 ABG Base Excess 3.7 H ABG Methemoglobin 1.0 Saqib Test Present Hemoglobin 13.6 Carboxyhemoglobin 1.3 O2 Delivery Device Ventilator Vent Setting Prvc / ac / Inspired O2 50 Critical Value Yes Sodium 145 Potassium 4.2 Chloride 109 H Carbon Dioxide 32.1 H Anion Gap 4 L BUN 13 Creatinine 0.55 L Estimated GFR Greater than 89 Random Glucose 90 Calcium 8.4 L D Microbiology 01/29/18 22:30 Blood - Peripheral Aerobic Blood Culture - Preliminary No growth in 2 days 01/29/18 22:30 Blood - Peripheral Anaerobic Blood Culture - Preliminary QNS - See aerobic report. 01/29/18 22:35 Blood - Peripheral Aerobic Blood Culture - Preliminary No growth in 2 days 01/29/18 22:35 Blood - Peripheral Anaerobic Blood Culture - Final 01/29/18 00:00 Sputum - Expectorated Sputum Gram Stain - Final - Imaging Impressions Chest X-Ray 01/31/18 06:00 CONCLUSION: Persistent but improving bibasilar areas of consolidation or atelectasis. Assessment and Plan - Assessment and Plan Left tibial shaft fracture removal of hardware and external fixation with open reduction internal fixation POD 0 Nonweightbearing left lower extremity Begin daily dressing changes POD 2 with Xeroform 4 x 4's and Pranav wrap Right Acetabulum fx -Reyes's traction Left Periprosthetic Distal Humerus Fx -NWB BLE -maintain sling and NWB on LUE -plan for surgery later this week for left humerus and acetabulum fractures Critical care
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
[2018-01-31] MEDS: Calcium/Vitamin D 250/125 MG Tablet PO SCH ×2 (13:28→17:21)
[2018-01-31] MEDS: Sod Chloride 0.9% Inj 1,000 ML IV.CONT SCH (14:11)
--- NOTE | 2018-01-31 14:41 | XR ---
EXAM DATE: 01/31/2018 12:00 AM EDT AGE/SEX: 57 years / Male INDICATIONS: Open reduction left tibia. CLINICAL DATA: This is the patient's subsequent encounter. Patient reports that signs and symptoms h ave been present for 4 - 6 days and indicates a pain score of Nonresponsive. MEDICAL/SURGICAL HISTORY: Non-responsive. Non-responsive. [place] [facility] [place] 2[place]/25/2018. . FINDINGS: Intraoperative examination demonstrates ORIF of a severely comminuted tibial fracture. The plating ap pears excellent. There is fracture of the proximal fibula as well. Note is made of depression of the medial tibial plateau. CONCLUSION: Orthopedic hardware in excellent position. Electronically signed by: Jasvir Walsh MD 01/31/2018 2:40 PM EDT
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
[2018-02-01] MEDS: Pantoprazole Inj 40 MG Vial IV.PUSH SCH (00:29)
[2018-02-01] MEDS: Oral Hygiene Kit OROPHARYNG SCH ×4 (00:29→16:18)
[2018-02-01] MEDS: fentaNYL 10 mcg/mL Premix Drip 2,500 MCG/250 ML BAG IV.SIG PRN ×2 (00:54→22:30)
[2018-02-01] MEDS: Piperacil/Tazo 4.5 GM Premix 4.5 GM/100 ML BAG IV.SIG SCH ×3 (01:00→13:20)
[2018-02-01] MEDS: Vancomycin Inj 1,750 MG in Sodium Chlor 0.9% Inj 500 ML IV.SIG SCH (03:41)
[2018-02-01] MEDS ORDERED: Pharmacy Ordered Lab Info OTHER ONE (03:45)
[2018-02-01 04:10] LABS: Alanine Aminotransferase 18 U/L (12-78); Albumin 1.5 g/dL (3.4-5.0); Alkaline Phosphatase 64 U/L (45-117); Anion Gap 8 meq/L (5-15); Aspartate Aminotransferase 40 U/L (15-37); Blood Urea Nitrogen 13 mg/dL (7-18); Calcium 7.6 mg/dL (8.5-10.1); Carbon Dioxide 27.9 meq/L (21.0-32.0); Chloride 109 meq/L (98-107); Glomerular Filtration Rate Greater Than 89 mL/min (>89); Glucose,Random 138 mg/dL (74-106); Potassium 3.5 meq/L (3.5-5.1); Sodium 145 meq/L (136-145); Total Protein 5.5 g/dL (6.4-8.2); Vancomycin,Trough 18.7 mcg/mL (5.0-10.0)
[2018-02-01 06:05] LABS: Baso % (Auto) 0.2 % (0.0-2.0); Eos # (Auto) 0.2 th/mm3 (0.0-0.4); Eos % (Auto) 1.8 % (0.0-4.0); Hematocrit 22.6 % (39.0-51.0); Hemoglobin 7.7 gm/dL (13.0-17.0); Lymph # (Auto) 1.9 th/mm3 (1.0-4.8); Lymph % (Auto) 14.1 % (9.0-44.0); Mean Corpuscular HGB Conc 34.3 % (32.0-36.0); Mean Corpuscular Hemoglobin 31.4 pg (27.0-34.0); Mean Corpuscular Volume 91.7 fL (80.0-100.0); Mean Platelet Volume 7.7 fL (7.0-11.0); Mono # (Auto) 1.7 th/mm3 (0.0-0.9); Mono % (Auto) 12.3 % (0.0-8.0); Neut # (Auto) 9.6 th/mm3 (1.8-7.7); Neut % (Auto) 71.6 % (16.0-70.0); Platelet Count 426 th/mm3 (150-450); Red Blood Count 2.47 mil/mm3 (4.50-5.90); Red Cell Distribution Width 17.5 % (11.6-17.2); White Blood Count 13.4 th/mm3 (4.0-11.0)
[2018-02-01] MEDS: Sod Chloride 0.9% Inj 1,000 ML IV.CONT SCH (06:17)
[2018-02-01 06:39] LABS: ABG Base Excess 2.8 mmol/L (-2-2); ABG PCO2 35 mmHg (38-42); ABG PO2 77 mmHg (61-120)
[2018-02-01] MEDS ORDERED: Magnesium Citrate Liq 300 ML Bottle PO ONE (06:54)
[2018-02-01] MEDS: Chlorhexidine 0.12% Oral Kit 15 ML UDC OROPHARYNG SCH ×2 (07:12→20:58)
--- NOTE | 2018-02-01 07:39 | P.PNOP ---
Subjective Interval history: POD 1 s/p IMN left tibia s/p left distal humerus fx s/p right acetabulum fx extubated. Physical Exam Vital signs: Vital Signs 01/31/18 08:00 01/31/18 08:15 01/31/18 10:00 Temperature 100.0 F H Pulse Rate 93 H 91 H 96 H Respiratory Rate 20 20 Blood Pressure 107/62 Pulse Oximetry 94 L 96 01/31/18 14:00 01/31/18 15:37 01/31/18 16:00 Temperature 100.8 F H Pulse Rate 100 H 99 H 99 H Respiratory Rate 20 20 Blood Pressure 105/72 Pulse Oximetry 96 95 01/31/18 18:00 01/31/18 19:46 01/31/18 20:00 Temperature 100.8 F H Pulse Rate 102 H 100 H 100 H Respiratory Rate 18 20 Blood Pressure 102/64 Pulse Oximetry 92 L 90 L 01/31/18 22:00 02/01/18 00:00 02/01/18 00:52 Temperature 100.0 F H Pulse Rate 99 H 104 H Respiratory Rate 20 20 Blood Pressure 121/69 Pulse Oximetry 94 L 96 02/01/18 02:00 02/01/18 04:00 02/01/18 04:06 Temperature 100.0 F H Pulse Rate 101 H 94 H 107 H Respiratory Rate 20 23 Blood Pressure 95/56 L Pulse Oximetry 93 L 02/01/18 04:09 02/01/18 06:00 Temperature Pulse Rate 90 Respiratory Rate 20 Blood Pressure Pulse Oximetry 93 L Intake & Output 01/31/18 02/01/18 02/01/18 18:59 06:59 18:59 Intake Total 2420 / 2420 2504.0 / 2504.0 Output Total 2400 / 2400 1350 / 1350 Balance 20 / 20 1154.0 / 1154.0 Weight 91.2 kg Intake: IV 1650 / 1650 1585.0 / 1585.0 Diprivan 1000 mg/100 ml Inj 1, 100 / 100 000 mg In 100 ml @ 5 MCG/KG/MIN 2.361 mls/hr IV.CONT TITRATE PRN Rx#:[id number] NS Inj 1,000 ML @ 60 mls/hr IV. 1000 / 1000 CONT .[id number] [facility] Rx#:[id number] Ofirmev Inj 1,000 mg In 100 ml 100 / 100 100 / 100 @ 400 mls/hr IV.SIG Q6H PRN Rx# :[id number] Zosyn 4.5 GM Premix 4.5 gm In 200 / 200 200 / 200 100 ml @ 200 mls/hr IV.SIG Q6H [facility] Rx#:[id number] Vancomycin Inj 1,750 MG In NS 1035.0 / 1035.0 Inj 500 ML @ 250 mls/hr IV.SIG Q12H [facility] Rx#:[id number] fentaNYL 10 mcg/mL Premix Drip 250 / 250 250 / 250 2,500 mcg In 250 ml @ 50 MCG/HR 5 mls/hr IV.SIG TITRATE PRN Rx #:[id number] Oral 0 / 0 0 / 0 Tube Feeding 150 / 150 649 / 649 Tube Irrigant 270 / 270 Water Bolus Amount 120 / 120 0 / 0 Anesthesia Amount 500 / 500 Output: Estimated Blood Loss 150 / 150 Urine Amount (Catheter) 2250 / 2250 1350 / 1350 Indwelling Temp Sensing 2250 / 2250 1350 / 1350 Catheter Other: # Bowel Movements 0 Narrative: LLE: dressings clean and dry. intact. moving leg LUE: +splint RLE: +bucks - Urinary Catheter Management Indwelling Temp Sensing Catheter Cath placed during this visit: yes Reason for continuing: Hourly intake/output Insertion date: 01/24/18 Insertion time: 00:25 Results - Labs CBC & Chem 7: 02/01/18 05:30 02/01/18 03:30 Laboratory Results - last 24 hr 01/31/18 02/01/18 02/01/18 14:50 03:30 05:30 WBC 13.4 H RBC 2.47 L Hgb 7.7 L Hct 22.6 L MCV 91.7 MCH 31.4 MCHC 34.3 RDW 17.5 H Plt Count 426 MPV 7.7 Neut % (Auto) 71.6 H Lymph % (Auto) 14.1 [place] % (Auto) 12.3 H Eos % (Auto) 1.8 Baso % (Auto) 0.2 Neut # (Auto) 9.6 H Lymph # (Auto) 1.9 [place] # (Auto) 1.7 H Eos # (Auto) 0.2 Baso # (Auto) 0.0 WBC Differential . Differential Comment Auto diff final Puncture Site Patient Temperature O2 Saturation ABG pH ABG pCO2 ABG pO2 ABG HCO3 ABG O2 Content ABG Base Excess ABG Methemoglobin Hemoglobin Carboxyhemoglobin O2 Delivery Device Vent Setting Inspired O2 Critical Value Sodium 145 Potassium 3.5 Chloride 109 H Carbon Dioxide 27.9 Anion Gap 8 BUN 13 Creatinine 0.72 Estimated GFR Greater than 89 Random Glucose 138 H Calcium 7.6 L D Magnesium 2.4 Total Bilirubin 0.5 AST 40 H ALT 18 Alkaline Phosphatase 64 Total Protein 5.5 L Albumin 1.5 L Vancomycin Trough 18.7 H 02/01/18 06:14 WBC RBC Hgb Hct MCV MCH MCHC RDW Plt Count MPV Neut % (Auto) Lymph % (Auto) [place] % (Auto) Eos % (Auto) Baso % (Auto) Neut # (Auto) Lymph # (Auto) [place] # (Auto) Eos # (Auto) Baso # (Auto) WBC Differential Differential Comment Puncture Site Left radial Patient Temperature 98.6 O2 Saturation 94 ABG pH 7.49 H ABG pCO2 35 L ABG pO2 77 ABG HCO3 26 ABG O2 Content 13.9 ABG Base Excess 2.8 H ABG Methemoglobin 1.0 Hemoglobin 10.5 L Carboxyhemoglobin 1.2 O2 Delivery Device Ventilator Vent Setting Prvc / ac / Inspired O2 70 Critical Value No Sodium Potassium Chloride Carbon Dioxide Anion Gap BUN Creatinine Estimated GFR Random Glucose Calcium Magnesium Total Bilirubin AST ALT Alkaline Phosphatase Total Protein Albumin Vancomycin Trough Microbiology 01/29/18 00:00 Sputum - Expectorated Sputum Gram Stain - Final 01/29/18 00:00 Sputum - Expectorated Sputum Sputum Culture - Preliminary S. aureus MRSA 01/29/18 22:30 Blood - Peripheral Aerobic Blood Culture - Preliminary No growth in 2 days 01/29/18 22:30 Blood - Peripheral Anaerobic Blood Culture - Preliminary QNS - See aerobic report. 01/29/18 22:35 Blood - Peripheral Aerobic Blood Culture - Preliminary No growth in 2 days 01/29/18 22:35 Blood - Peripheral Anaerobic Blood Culture - Final - Imaging Impressions Tibia/Fibula X-Ray 01/31/18 00:00 CONCLUSION: Orthopedic hardware in excellent position. Assessment and Plan - Assessment and Plan Left tibial shaft fracture removal of hardware and external fixation with open reduction internal fixation POD 1 Nonweightbearing left lower extremity Begin daily dressing changes POD 2 with Xeroform 4 x 4's and Pranav wrap Right Acetabulum fx -Reyes's traction Left Periprosthetic Distal Humerus Fx -NWB BLE -maintain sling and NWB on LUE -plan for surgery possibly tomorrow for humerus. will need acetabulum done later this week Critical care
[2018-02-01] MEDS: Propofol 1000 mg/100 ml Inj 1,000 MG/100 ML BOTTLE IV.CONT PRN (08:54)
[2018-02-01] MEDS: Calcium/Vitamin D 250/125 MG Tablet PO SCH ×3 (09:19→17:41)
[2018-02-01] MEDS ORDERED: Potassium Chloride 25 MEQ Effervescent Tablet PO ONE (09:26)
[2018-02-01] MEDS: Potassium Chlor 40 mEq Premix 40 MEQ/100 ML PIGGYBACK IV.SIG PRN (09:51)
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
--- NOTE | 2018-02-01 10:04 | XR ---
EXAM DATE: 02/01/2018 9:25 AM EDT AGE/SEX: 57 years / Male INDICATIONS: Shortness of breath. CLINICAL DATA: This is the patient's initial encounter. Patient reports that signs and symptoms have been present for 1 day and indicates a pain score of Nonresponsive. MEDICAL/SURGICAL HISTORY: Non-responsive. Non-responsive. COMPAR[place]: [facility] [place] 1[place] SINGLE AP, 01/31/2018. . FINDINGS: Portable AP view of the chest demonstrate a normal-sized cardiac silhouette. Tracheostomy, right subc lavian central line, and nasogastric tube remain present. Lungs are underinflated and there are bibas ilar pleural-parenchymal opacities. No pneumothorax is identified. The bones and soft tissues demonst rate no acute finding. There has been prior left shoulder arthroplasty. CONCLUSION: Stable to mildly increased bibasilar opacities likely representing small pleural effusions with assoc iated volume loss and/or airspace elevation. Electronically signed by: Dhiraj Miner MD 02/01/2018 10:02 AM EDT
[2018-02-01] MEDS: Senna/Docusate Sodium 8.6/50 MG Tablet PO SCH ×2 (10:26→20:58)
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
[2018-02-01] MEDS ORDERED: Sodium Chlor 0.9% Inj 250 ML IV.SIG SCH (11:00)
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
[2018-02-01] MEDS: Enoxaparin Inj 30 MG/0.3 ML Syringe SQ SCH ×2 (14:54→20:58)
[2018-02-01] MEDS: Vancomycin Inj 1,500 MG in Sodium Chlor 0.9% Inj 500 ML IV.SIG SCH (16:18)
[2018-02-01 17:04] LABS: Hematocrit 26.7 % (39.0-51.0); Hemoglobin 8.9 gm/dL (13.0-17.0); Mean Corpuscular HGB Conc 33.2 % (32.0-36.0); Mean Corpuscular Hemoglobin 30.7 pg (27.0-34.0); Mean Corpuscular Volume 92.4 fL (80.0-100.0); Mean Platelet Volume 7.6 fL (7.0-11.0); Platelet Count 490 th/mm3 (150-450); Red Blood Count 2.89 mil/mm3 (4.50-5.90); Red Cell Distribution Width 17.5 % (11.6-17.2); White Blood Count 13.6 th/mm3 (4.0-11.0)
[2018-02-01 17:27] LABS: Alanine Aminotransferase 22 U/L (12-78); Albumin 1.6 g/dL (3.4-5.0); Anion Gap 8 meq/L (5-15); Aspartate Aminotransferase 50 U/L (15-37); Blood Urea Nitrogen 12 mg/dL (7-18); Carbon Dioxide 31.4 meq/L (21.0-32.0); Chloride 107 meq/L (98-107); Glomerular Filtration Rate Greater Than 89 mL/min (>89); Glucose,Random 118 mg/dL (74-106); Potassium 3.6 meq/L (3.5-5.1); Sodium 146 meq/L (136-145)
[2018-02-01 17:30] LABS: Alkaline Phosphatase 108 U/L (45-117); Total Protein 6.2 g/dL (6.4-8.2)
[2018-02-02] MEDS: Oral Hygiene Kit OROPHARYNG SCH ×4 (00:25→15:01)
[2018-02-02] MEDS: Pantoprazole Inj 40 MG Vial IV.PUSH SCH (00:25)
[2018-02-02] MEDS: Vancomycin Inj 1,500 MG in Sodium Chlor 0.9% Inj 500 ML IV.SIG SCH (03:18)
[2018-02-02] MEDS: Propofol 1000 mg/100 ml Inj 1,000 MG/100 ML BOTTLE IV.CONT PRN ×2 (03:20→17:56)
[2018-02-02 05:01] LABS: Baso % (Auto) 0.3 % (0.0-2.0); Eos # (Auto) 0.3 th/mm3 (0.0-0.4); Eos % (Auto) 1.9 % (0.0-4.0); Hematocrit 28.5 % (39.0-51.0); Hemoglobin 9.3 gm/dL (13.0-17.0); Lymph # (Auto) 2.3 th/mm3 (1.0-4.8); Lymph % (Auto) 17.3 % (9.0-44.0); Mean Corpuscular HGB Conc 32.6 % (32.0-36.0); Mean Corpuscular Hemoglobin 30.2 pg (27.0-34.0); Mean Corpuscular Volume 92.6 fL (80.0-100.0); Mean Platelet Volume 7.4 fL (7.0-11.0); Mono # (Auto) 1.9 th/mm3 (0.0-0.9); Mono % (Auto) 14.4 % (0.0-8.0); Neut % (Auto) 66.1 % (16.0-70.0); Platelet Count 551 th/mm3 (150-450); Red Blood Count 3.08 mil/mm3 (4.50-5.90); Red Cell Distribution Width 16.8 % (11.6-17.2); White Blood Count 13.5 th/mm3 (4.0-11.0)
[2018-02-02 05:28] LABS: Albumin 1.8 g/dL (3.4-5.0); Anion Gap 8 meq/L (5-15); Aspartate Aminotransferase 51 U/L (15-37); Blood Urea Nitrogen 12 mg/dL (7-18); Calcium 8.4 mg/dL (8.5-10.1); Carbon Dioxide 29.2 meq/L (21.0-32.0); Chloride 106 meq/L (98-107); Glomerular Filtration Rate Greater Than 89 mL/min (>89); Glucose,Random 116 mg/dL (74-106); Potassium 3.7 meq/L (3.5-5.1); Sodium 143 meq/L (136-145)
[2018-02-02 05:29] LABS: Alanine Aminotransferase 23 U/L (12-78)
[2018-02-02 05:31] LABS: Alkaline Phosphatase 82 U/L (45-117); Total Protein 6.7 g/dL (6.4-8.2)
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
--- NOTE | 2018-02-02 07:08 | P.PNOP ---
Subjective Interval history: POD 2 s/p IMN left tibia s/p left humerus and right acetab fx no changes. Physical Exam Vital signs: Vital Signs 02/01/18 08:00 02/01/18 08:36 02/01/18 10:00 Temperature 99.8 F H Pulse Rate 94 H 108 H Respiratory Rate 20 23 Blood Pressure 124/68 Pulse Oximetry 96 93 L 02/01/18 12:00 02/01/18 12:17 02/01/18 12:29 Temperature 100.2 F H 100.2 F H Pulse Rate 107 H 104 H Respiratory Rate 20 16 16 Blood Pressure 107/57 L 107/57 L Pulse Oximetry 93 L 92 L 90 L 02/01/18 12:45 02/01/18 13:15 02/01/18 14:00 Temperature 99.7 F H 99.9 F H Pulse Rate 100 H 103 H 101 H Respiratory Rate 20 16 Blood Pressure 111/60 111/61 Pulse Oximetry 95 02/01/18 16:00 02/01/18 16:11 02/01/18 18:00 Temperature 99.0 F Pulse Rate 105 H 102 H Respiratory Rate 16 19 Blood Pressure 134/61 Pulse Oximetry 93 L 95 02/01/18 19:58 02/01/18 20:00 02/01/18 22:00 Temperature 100.1 F H Pulse Rate 102 H 124 H Respiratory Rate 16 16 Blood Pressure 125/60 Pulse Oximetry 97 99 02/02/18 00:00 02/02/18 00:17 02/02/18 02:00 Temperature 100.8 F H Pulse Rate 106 H 110 H Respiratory Rate 16 16 Blood Pressure 110/58 L Pulse Oximetry 93 L 92 L 02/02/18 03:16 02/02/18 04:00 02/02/18 06:00 Temperature 99.1 F Pulse Rate 117 H 93 H Respiratory Rate 16 16 Blood Pressure 99/58 L Pulse Oximetry 92 L 93 L Intake & Output 02/01/18 02/02/18 02/02/18 18:59 06:59 18:59 Intake Total 3015 / 3015 1595 / 1595 Output Total 3600 / 3600 1345 / 1345 Balance -585 / -585 250 / 250 Weight 89 kg Intake: IV 1845 / 1845 965 / 965 Diprivan 1000 mg/100 ml Inj 1, 100 / 100 100 / 100 000 mg In 100 ml @ 5 MCG/KG/MIN 2.361 mls/hr IV.CONT TITRATE PRN Rx#:[id number] NS Inj 1,000 ML @ 60 mls/hr IV. 1000 / 1000 CONT .[id number] [facility] Rx#:[id number] Ofirmev Inj 1,000 mg In 100 ml 100 / 100 @ 400 mls/hr IV.SIG Q6H PRN Rx# :[id number] Levophed Inj 4 MG In NS Inj 246 10 / 10 ML @ 2 MCG/MIN 7.5 mls/hr IV. SIG TITRATE PRN Rx#:[id number] Zosyn 4.5 GM Premix 4.5 gm In 200 / 200 100 ml @ 200 mls/hr IV.SIG Q6H [facility] Rx#:[id number] NS Inj 250 ML @ 15 mls/hr IV. 20 / 20 SIG ONCE [facility] Rx#:[id number] Vancomycin Inj 1,500 MG In NS 515 / 515 515 / 515 Inj 500 ML @ 250 mls/hr IV.SIG Q12H [facility] Rx#:[id number] fentaNYL 10 mcg/mL Premix Drip 250 / 250 2,500 mcg In 250 ml @ 50 MCG/HR 5 mls/hr IV.SIG TITRATE PRN Rx #:[id number] Oral 0 / 0 0 / 0 Tube Feeding 650 / 650 450 / 450 Tube Irrigant 60 / 60 Water Bolus Amount 120 / 120 120 / 120 Intake (Blood Product) Amt 400 / 400 Rbc As-3 Leukoreduced Unit 400 / 400 [id number] Output: Urine Amount (Catheter) 3600 / 3600 1345 / 1345 Indwelling Temp Sensing 3600 / 3600 1345 / 1345 Catheter Other: Date of Last Bowel Movement 02/01/18 02/02/18 # Bowel Movements 1 1 Narrative: LLE: dressings clean and dry. intact. LUE: +splint. intact RLE: +bucks traction - Urinary Catheter Management Indwelling Temp Sensing Catheter Cath placed during this visit: yes Reason for continuing: Hourly intake/output Insertion date: 01/24/18 Insertion time: 00:25 Results - Labs CBC & Chem 7: 02/02/18 04:45 02/02/18 04:45 Laboratory Results - last 24 hr 01/27/18 02/01/18 02/01/18 06:17 11:14 16:49 WBC 13.6 H RBC 2.89 L Hgb 8.9 L Hct 26.7 L MCV 92.4 MCH 30.7 MCHC 33.2 RDW 17.5 H Plt Count 490 H MPV 7.6 Neut % (Auto) Lymph % (Auto) [place] % (Auto) Eos % (Auto) Baso % (Auto) Neut # (Auto) Lymph # (Auto) [place] # (Auto) Eos # (Auto) Baso # (Auto) WBC Differential Differential Comment Sodium Potassium Chloride Carbon Dioxide Anion Gap BUN Creatinine Estimated GFR Random Glucose Calcium Total Bilirubin AST ALT Alkaline Phosphatase Total Protein Albumin Blood Type O Positive Antibody Screen Negative MTS Gel Crossmatch See Detail See Detail 02/01/18 02/02/18 02/02/18 16:49 04:45 04:45 WBC 13.5 H RBC 3.08 L Hgb 9.3 L Hct 28.5 L MCV 92.6 MCH 30.2 MCHC 32.6 RDW 16.8 Plt Count 551 H MPV 7.4 Neut % (Auto) 66.1 Lymph % (Auto) 17.3 [place] % (Auto) 14.4 H Eos % (Auto) 1.9 Baso % (Auto) 0.3 Neut # (Auto) 9.0 H Lymph # (Auto) 2.3 [place] # (Auto) 1.9 H Eos # (Auto) 0.3 Baso # (Auto) 0.0 WBC Differential . Differential Comment Auto diff final Sodium 146 H 143 Potassium 3.6 3.7 Chloride 107 106 Carbon Dioxide 31.4 29.2 Anion Gap 8 8 BUN 12 12 Creatinine 0.61 0.63 Estimated GFR Greater than 89 Greater than 89 Random Glucose 118 H 116 H Calcium 8.0 L 8.4 L Total Bilirubin 0.5 0.5 AST 50 H 51 H ALT 22 23 Alkaline Phosphatase 108 82 Total Protein 6.2 L D 6.7 Albumin 1.6 L 1.8 L Blood Type Antibody Screen MTS Gel Crossmatch Microbiology 01/29/18 00:00 Sputum - Expectorated Sputum Gram Stain - Final 01/29/18 00:00 Sputum - Expectorated Sputum Sputum Culture - Final S. aureus MRSA 01/29/18 22:30 Blood - Peripheral Aerobic Blood Culture - Preliminary No growth in 3 days 01/29/18 22:30 Blood - Peripheral Anaerobic Blood Culture - Preliminary QNS - See aerobic report. 01/29/18 22:35 Blood - Peripheral Aerobic Blood Culture - Preliminary No growth in 3 days 01/29/18 22:35 Blood - Peripheral Anaerobic Blood Culture - Final - Imaging Impressions Chest X-Ray 02/01/18 09:25 CONCLUSION: Stable to mildly increased bibasilar opacities likely representing small pleural effusions with associated volume loss and/or airspace elevation. Chest X-Ray 02/02/18 06:00 CONCLUSION: 1. No significant interval change. 2. Stable tubes and lines. 3. Stable bibasilar mild airspace disease and probable trace associated pleural effusion. Assessment and Plan - Assessment and Plan Left tibial shaft fracture removal of hardware and external fixation with open reduction internal fixation POD 2 Nonweightbearing left lower extremity Begin daily dressing changes POD 2 with Xeroform 4 x 4's and Pranav wrap Right Acetabulum fx -Reyes's traction Left Periprosthetic Distal Humerus Fx -NWB BLE -maintain sling and NWB on LUE -plan for surgery possibly tomorrow for humerus. will need acetabulum done later this week Critical care -npo after MN
[2018-02-02] MEDS: Chlorhexidine 0.12% Oral Kit 15 ML UDC OROPHARYNG SCH ×2 (09:34→20:43)
[2018-02-02] MEDS: Calcium/Vitamin D 250/125 MG Tablet PO SCH ×3 (09:35→17:56)
[2018-02-02] MEDS: Senna/Docusate Sodium 8.6/50 MG Tablet PO SCH ×2 (09:35→20:41)
--- NOTE | 2018-02-02 10:37 | P.PNNS ---
Subjective Interval history: No events overnight Physical Exam Vital signs: Vital Signs 02/01/18 12:00 02/01/18 12:17 02/01/18 12:29 Temperature 100.2 F H 100.2 F H Pulse Rate 107 H 104 H Respiratory Rate 20 16 16 Blood Pressure 107/57 L 107/57 L Pulse Oximetry 93 L 92 L 90 L 02/01/18 12:45 02/01/18 13:15 02/01/18 14:00 Temperature 99.7 F H 99.9 F H Pulse Rate 100 H 103 H 101 H Respiratory Rate 20 16 Blood Pressure 111/60 111/61 Pulse Oximetry 95 02/01/18 16:00 02/01/18 16:11 02/01/18 18:00 Temperature 99.0 F Pulse Rate 105 H 102 H Respiratory Rate 16 19 Blood Pressure 134/61 Pulse Oximetry 93 L 95 02/01/18 19:58 02/01/18 20:00 02/01/18 22:00 Temperature 100.1 F H Pulse Rate 102 H 124 H Respiratory Rate 16 16 Blood Pressure 125/60 Pulse Oximetry 97 99 02/02/18 00:00 02/02/18 00:17 02/02/18 02:00 Temperature 100.8 F H Pulse Rate 106 H 110 H Respiratory Rate 16 16 Blood Pressure 110/58 L Pulse Oximetry 93 L 92 L 02/02/18 03:16 02/02/18 04:00 02/02/18 06:00 Temperature 99.1 F Pulse Rate 117 H 93 H Respiratory Rate 16 16 Blood Pressure 99/58 L Pulse Oximetry 92 L 93 L 02/02/18 07:31 Temperature Pulse Rate Respiratory Rate 16 Blood Pressure Pulse Oximetry 98 Intake & Output 02/01/18 02/02/18 02/02/18 18:59 06:59 18:59 Intake Total 3015 / 3015 1595 / 1595 Output Total 3600 / 3600 1345 / 1345 Balance -585 / -585 250 / 250 Weight 89 kg Intake: IV 1845 / 1845 965 / 965 Diprivan 1000 mg/100 ml Inj 1, 100 / 100 100 / 100 000 mg In 100 ml @ 5 MCG/KG/MIN 2.361 mls/hr IV.CONT TITRATE PRN Rx#:[id number] NS Inj 1,000 ML @ 60 mls/hr IV. 1000 / 1000 CONT .[id number] LUCIUS Rx#:[id number] Ofirmev Inj 1,000 mg In 100 ml 100 / 100 @ 400 mls/hr IV.SIG Q6H PRN Rx# :[id number] Levophed Inj 4 MG In NS Inj 246 10 / 10 ML @ 2 MCG/MIN 7.5 mls/hr IV. SIG TITRATE PRN Rx#:[id number] Zosyn 4.5 GM Premix 4.5 gm In 200 / 200 100 ml @ 200 mls/hr IV.SIG Q6H LUCIUS Rx#:[id number] NS Inj 250 ML @ 15 mls/hr IV. 20 / 20 SIG ONCE LUCIUS Rx#:[id number] Vancomycin Inj 1,500 MG In NS 515 / 515 515 / 515 Inj 500 ML @ 250 mls/hr IV.SIG Q12H LUCIUS Rx#:[id number] fentaNYL 10 mcg/mL Premix Drip 250 / 250 2,500 mcg In 250 ml @ 50 MCG/HR 5 mls/hr IV.SIG TITRATE PRN Rx #:[id number] Oral 0 / 0 0 / 0 Tube Feeding 650 / 650 450 / 450 Tube Irrigant 60 / 60 Water Bolus Amount 120 / 120 120 / 120 Intake (Blood Product) Amt 400 / 400 Rbc As-3 Leukoreduced Unit 400 / 400 [id number] Output: Urine Amount (Catheter) 3600 / 3600 1345 / 1345 Indwelling Temp Sensing 3600 / 3600 1345 / 1345 Catheter Other: Date of Last Bowel Movement 02/01/18 02/02/18 # Bowel Movements 1 1 Narrative: Narrative: On propofol, fentanyl gtt Eyes open spontaneously PERRL Moving all extremities Localizes right upper extremity Left upper extremity casted Left lower extremity in ex-fix but withdraws Right lower extremity in traction, withdraws to pain - Urinary Catheter Management Indwelling Temp Sensing Catheter Cath placed during this visit: yes Reason for continuing: Hourly intake/output Insertion date: 01/24/18 Insertion time: 00:25 Assessment and Plan - Plan ~60 y/o male with right frontal subdural hematoma, right frontotemporal minimally displaced skull fracture, right temporal contusion, scattered traumatic subarachnoid hemorrhage, and C2 lateral mass fracture who presents as a GCS 7T. Repeat head CT 01/24 demonstrates blossoming of temporal contusion, very small increase in subdural hematoma (minimal mass effect, ~2 mm of midline shift). No ICP issues. ICP monitor removed 01/29/18. P: Maintain cervical collar (C2 lateral mass fracture). Continue with critical care. Okay for orthopedics to proceed with procedures.
[2018-02-02] MEDS: Enoxaparin Inj 30 MG/0.3 ML Syringe SQ SCH ×2 (11:49→20:42)
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
--- NOTE | 2018-02-02 12:35 | P.PCN ---
Date of procedure: 02/02/18 Pre-op diagnosis: Respiratory failure, status post trauma, needing long-term nutritional acce Procedure: PROCEDURE PERFORMED EGD with PEG placement PROCEDURE: The procedure, risks and benefits were discussed with Patient/POA and informed consent was obtained. Patient in the ICU on a dipper Van and fentanyl drip no additional sedation was given. Patient was placed in the left lateral decubitus position. EGD: The Pentax videoscope was introduced through the oropharynx and advanced to the second portion of the duodenum under direct visualization. Retroflexion was performed in the stomach. FINDINGS: The esophagus this was normal The stomach this was normal The duodenum this was normal Following the evaluation of the stomach and the duodenum the stomach was insufflated with air and the area of PEG placement was identified through indentation and transillumination the area was prepped and draped in usual fashion 5 cc of lidocaine were injected locally a small incision was made then an Angiocath was passed into the stomach through which a guidewire was passed this was retrieved with the scope into that a PEG tube was attached and pulled into place and thereafter secured in usual fashion The patient tolerated procedure well and there are no immediate complications ESTIMATED BLOOD LOSS: None SPECIMENS REMOVED: None COMPLICATIONS: None IMPRESSION: Normal EGD Successful PEG placement PLAN: 1. May use PEG tube for medications today 2. May start feeding tomorrow 3. May obtain nutritional consult for tube feeding 4. Flush tube with 50 cc of water every 4-6 hours 5. Always flush tube after feedings 6. Apply abdominal binder as necessary 7. Clamp G-tube after use and flush. Anesthesia: none Surgeon: Max Rushing Condition: stable Disposition: no change
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
[2018-02-02] MEDS: fentaNYL 10 mcg/mL Premix Drip 2,500 MCG/250 ML BAG IV.SIG PRN (15:14)
[2018-02-03] MEDS: Oral Hygiene Kit OROPHARYNG SCH ×4 (00:34→18:41)
[2018-02-03] MEDS: Pantoprazole Inj 40 MG Vial IV.PUSH SCH (00:34)
[2018-02-03] MEDS ORDERED: Pharmacy Ordered Lab Info OTHER ONE (03:45)
[2018-02-03 04:20] LABS: Albumin 1.8 g/dL (3.4-5.0); Anion Gap 10 meq/L (5-15); Aspartate Aminotransferase 46 U/L (15-37); Blood Urea Nitrogen 10 mg/dL (7-18); Calcium 8.5 mg/dL (8.5-10.1); Carbon Dioxide 27.4 meq/L (21.0-32.0); Chloride 103 meq/L (98-107); Glomerular Filtration Rate Greater Than 89 mL/min (>89); Glucose,Random 117 mg/dL (74-106); Potassium 3.6 meq/L (3.5-5.1); Sodium 140 meq/L (136-145)
[2018-02-03 04:21] LABS: Alanine Aminotransferase 23 U/L (12-78)
[2018-02-03 04:23] LABS: Alkaline Phosphatase 79 U/L (45-117); Total Protein 6.7 g/dL (6.4-8.2)
[2018-02-03 04:27] LABS: Baso % (Auto) 0.4 % (0.0-2.0); Eos # (Auto) 0.1 th/mm3 (0.0-0.4); Eos % (Auto) 0.8 % (0.0-4.0); Hematocrit 25.4 % (39.0-51.0); Hemoglobin 8.4 gm/dL (13.0-17.0); Lymph # (Auto) 1.8 th/mm3 (1.0-4.8); Lymph % (Auto) 15.6 % (9.0-44.0); Mean Corpuscular HGB Conc 33.1 % (32.0-36.0); Mean Corpuscular Hemoglobin 30.7 pg (27.0-34.0); Mean Corpuscular Volume 92.5 fL (80.0-100.0); Mean Platelet Volume 7.5 fL (7.0-11.0); Mono # (Auto) 1.4 th/mm3 (0.0-0.9); Mono % (Auto) 12.1 % (0.0-8.0); Neut # (Auto) 8.3 th/mm3 (1.8-7.7); Neut % (Auto) 71.1 % (16.0-70.0); Platelet Count 600 th/mm3 (150-450); Red Blood Count 2.75 mil/mm3 (4.50-5.90); Red Cell Distribution Width 17.1 % (11.6-17.2); White Blood Count 11.7 th/mm3 (4.0-11.0)
[2018-02-03 05:55] LABS: ABG Base Excess 4.6 mmol/L (-2-2); ABG PCO2 35 mmHg (38-42); ABG PO2 113 mmHg (61-120)
--- NOTE | 2018-02-03 07:01 | P.PNOP ---
Subjective Interval history: Stable but sedated Physical Exam Vital signs: Vital Signs 02/02/18 07:31 02/02/18 08:00 02/02/18 10:00 Temperature 100.2 F H Pulse Rate 92 H 106 H Respiratory Rate 16 16 Blood Pressure 101/62 Pulse Oximetry 98 96 02/02/18 11:23 02/02/18 12:00 02/02/18 12:20 Temperature 99.7 F H Pulse Rate 102 H Respiratory Rate 16 16 16 Blood Pressure 104/59 L Pulse Oximetry 93 L 92 L 02/02/18 14:00 02/02/18 15:32 02/02/18 16:00 Temperature 100.4 F H Pulse Rate 94 H 104 H Respiratory Rate 16 16 Blood Pressure 113/64 Pulse Oximetry 97 96 02/02/18 18:00 02/02/18 18:46 02/02/18 19:43 Temperature Pulse Rate 91 H Respiratory Rate 16 16 Blood Pressure Pulse Oximetry 100 02/02/18 20:00 02/02/18 22:00 02/03/18 00:00 Temperature 100.4 F H 100.8 F H Pulse Rate 93 H 91 H 98 H Respiratory Rate 16 16 Blood Pressure 112/63 144/70 H Pulse Oximetry 99 97 02/03/18 00:33 02/03/18 02:00 02/03/18 04:00 Temperature 100.4 F H Pulse Rate 90 94 H Respiratory Rate 16 16 Blood Pressure 114/63 Pulse Oximetry 97 96 02/03/18 06:00 Temperature Pulse Rate 94 H Respiratory Rate Blood Pressure Pulse Oximetry Intake & Output 02/02/18 02/02/18 02/03/18 06:59 18:59 06:59 Intake Total 1595 / 1595 650 / 650 660 / 660 Output Total 1345 / 1345 1600 / 1600 1500 / 1500 Balance 250 / 250 -950 / -950 -840 / -840 Weight 89 kg 89 kg Intake: IV 965 / 965 650 / 650 300 / 300 Diprivan 1000 mg/100 ml Inj 1, 100 / 100 100 / 100 000 mg In 100 ml @ 5 MCG/KG/MIN 2.361 mls/hr IV.CONT TITRATE PRN Rx#:[id number] Ofirmev Inj 1,000 mg In 100 ml 100 / 100 @ 400 mls/hr IV.SIG Q6H PRN Rx# :[id number] Zyvox 600 mg Premix 300 ML @ 300 / 300 300 / 300 300 mls/hr IV.SIG Q12H [facility] Rx#: [id number] Vancomycin Inj 1,500 MG In NS 515 / 515 Inj 500 ML @ 250 mls/hr IV.SIG Q12H [facility] Rx#:[id number] fentaNYL 10 mcg/mL Premix Drip 250 / 250 250 / 250 2,500 mcg In 250 ml @ 50 MCG/HR 5 mls/hr IV.SIG TITRATE PRN Rx #:[id number] Oral 0 / 0 0 / 0 Tube Feeding 450 / 450 0 / 0 Tube Irrigant 60 / 60 Water Bolus Amount 120 / 120 360 / 360 Output: Urine Amount (Catheter) 1345 / 1345 1600 / 1600 1500 / 1500 Indwelling Temp Sensing 1345 / 1345 1600 / 1600 1500 / 1500 Catheter Other: Date of Last Bowel Movement 02/02/18 02/02/18 02/02/18 # Bowel Movements 1 1 0 Narrative: Left upper extremity: Splint intact. Good capillary refills and distal pulses. Left arm marked on thumb Left lower extremity: Clean dry dressings intact good distal pulses and capillary refills Right lower extremity: Right hip marked. Small wound over upper thigh with eschar noted. No laxity at the knee. Reyes's traction in place. Intact distal pulses and good capillary refills - Urinary Catheter Management Indwelling Temp Sensing Catheter Cath placed during this visit: yes Reason for continuing: Hourly intake/output Insertion date: 01/24/18 Insertion time: 00:25 Results - Labs CBC & Chem 7: 02/03/18 03:50 02/03/18 03:50 Laboratory Results - last 24 hr 02/03/18 02/03/18 02/03/18 03:50 03:50 05:44 WBC 11.7 H RBC 2.75 L Hgb 8.4 L Hct 25.4 L MCV 92.5 MCH 30.7 MCHC 33.1 RDW 17.1 Plt Count 600 H MPV 7.5 Neut % (Auto) 71.1 H Lymph % (Auto) 15.6 [place] % (Auto) 12.1 H Eos % (Auto) 0.8 Baso % (Auto) 0.4 Neut # (Auto) 8.3 H Lymph # (Auto) 1.8 [place] # (Auto) 1.4 H Eos # (Auto) 0.1 Baso # (Auto) 0.0 WBC Differential . Differential Comment Auto diff final Puncture Site Right radial Patient Temperature 98.6 O2 Saturation 97 ABG pH 7.51 H* ABG pCO2 35 L ABG pO2 113 ABG HCO3 28 H ABG O2 Content 12.0 ABG Base Excess 4.6 H ABG Methemoglobin 1.0 Saqib Test Present Hemoglobin 8.7 L Carboxyhemoglobin 1.3 O2 Delivery Device Ventilator Vent Setting Prvc/ac Inspired O2 55 Critical Value Yes Sodium 140 Potassium 3.6 Chloride 103 Carbon Dioxide 27.4 Anion Gap 10 BUN 10 Creatinine 0.59 L Estimated GFR Greater than 89 Random Glucose 117 H Calcium 8.5 Total Bilirubin 0.5 AST 46 H ALT 23 Alkaline Phosphatase 79 Total Protein 6.7 Albumin 1.8 L Microbiology 01/29/18 22:30 Blood - Peripheral Aerobic Blood Culture - Preliminary No growth in 4 days 01/29/18 22:30 Blood - Peripheral Anaerobic Blood Culture - Preliminary QNS - See aerobic report. 01/29/18 22:35 Blood - Peripheral Aerobic Blood Culture - Preliminary No growth in 4 days 01/29/18 22:35 Blood - Peripheral Anaerobic Blood Culture - Final Assessment and Plan - Assessment and Plan Left tibial shaft fracture removal of hardware and external fixation with open reduction internal fixation POD 3 Nonweightbearing left lower extremity daily dressing changes with Xeroform 4 x 4's and Pranav wrap Right Acetabulum fx -Reyes's traction Left Periprosthetic Distal Humerus Fx -NWB BLE -maintain sling and NWB on LUE -plan for surgery today for humerus and will possibly do acetabulum if stable during surgery Critical care -npo
[2018-02-03] MEDS ORDERED: TRANEXAMIC ACID IV.SIG SCH (08:00)
[2018-02-03] MEDS ORDERED: SODIUM CHLOR 0.9% IV.SIG SCH (08:00)
[2018-02-03] MEDS: Propofol 1000 mg/100 ml Inj 1,000 MG/100 ML BOTTLE IV.CONT PRN ×2 (08:04→22:42)
[2018-02-03] MEDS: Chlorhexidine 0.12% Oral Kit 15 ML UDC OROPHARYNG SCH ×2 (08:06→20:10)
[2018-02-03] MEDS: Calcium/Vitamin D 250/125 MG Tablet PO SCH ×4 (08:08→18:39)
[2018-02-03] MEDS: Senna/Docusate Sodium 8.6/50 MG Tablet PO SCH ×2 (08:08→20:31)
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
--- NOTE | 2018-02-03 09:19 | P.PNNS ---
Subjective Interval history: No events, more alert this AM following commands x 4 Physical Exam Vital signs: Vital Signs 02/02/18 10:00 02/02/18 11:23 02/02/18 12:00 Temperature 99.7 F H Pulse Rate 106 H 102 H Respiratory Rate 16 16 Blood Pressure 104/59 L Pulse Oximetry 93 L 92 L 02/02/18 12:20 02/02/18 14:00 02/02/18 15:32 Temperature Pulse Rate 94 H Respiratory Rate 16 16 Blood Pressure Pulse Oximetry 97 02/02/18 16:00 02/02/18 18:00 02/02/18 18:46 Temperature 100.4 F H Pulse Rate 104 H 91 H Respiratory Rate 16 16 Blood Pressure 113/64 Pulse Oximetry 96 02/02/18 19:43 02/02/18 20:00 02/02/18 22:00 Temperature 100.4 F H Pulse Rate 93 H 91 H Respiratory Rate 16 16 Blood Pressure 112/63 Pulse Oximetry 100 99 02/03/18 00:00 02/03/18 00:33 02/03/18 02:00 Temperature 100.8 F H Pulse Rate 98 H 90 Respiratory Rate 16 16 Blood Pressure 144/70 H Pulse Oximetry 97 97 02/03/18 04:00 02/03/18 04:41 02/03/18 06:00 Temperature 100.4 F H Pulse Rate 94 H 94 H Respiratory Rate 16 16 Blood Pressure 114/63 Pulse Oximetry 96 96 02/03/18 07:29 Temperature Pulse Rate Respiratory Rate 21 Blood Pressure Pulse Oximetry 100 Intake & Output 02/02/18 02/03/18 02/03/18 18:59 06:59 18:59 Intake Total 650 / 650 660 / 660 100 / 100 Output Total 1600 / 1600 1500 / 1500 Balance -950 / -950 -840 / -840 100 / 100 Weight 89 kg Intake: IV 650 / 650 300 / 300 100 / 100 Diprivan 1000 mg/100 ml Inj 1, 100 / 100 100 / 100 000 mg In 100 ml @ 5 MCG/KG/MIN 2.361 mls/hr IV.CONT TITRATE PRN Rx#:[id number] Zyvox 600 mg Premix 300 ML @ 300 / 300 300 / 300 300 mls/hr IV.SIG Q12H [facility] Rx#: [id number] fentaNYL 10 mcg/mL Premix Drip 250 / 250 2,500 mcg In 250 ml @ 50 MCG/HR 5 mls/hr IV.SIG TITRATE PRN Rx #:[id number] Oral 0 / 0 Tube Feeding 0 / 0 Water Bolus Amount 360 / 360 Output: Urine Amount (Catheter) 1600 / 1600 1500 / 1500 Indwelling Temp Sensing 1600 / 1600 1500 / 1500 Catheter Other: Date of Last Bowel Movement 02/02/18 02/02/18 # Bowel Movements 1 0 Narrative: Narrative: Narrative: On propofol, fentanyl gtt Eyes open spontaneously PERRL Moving all extremities -- following commands this morning Localizes right upper extremity Left upper extremity casted Left lower extremity in ex-fix but withdraws Right lower extremity in traction, withdraws to pain - Urinary Catheter Management Indwelling Temp Sensing Catheter Cath placed during this visit: yes Reason for continuing: Hourly intake/output Insertion date: 01/24/18 Insertion time: 00:25 Assessment and Plan - Plan ~60 y/o male with right frontal subdural hematoma, right frontotemporal minimally displaced skull fracture, right temporal contusion, scattered traumatic subarachnoid hemorrhage, and C2 lateral mass fracture who presents as a GCS 7T. Repeat head CT 01/24 demonstrates blossoming of temporal contusion, very small increase in subdural hematoma (minimal mass effect, ~2 mm of midline shift). No ICP issues. ICP monitor removed 01/29/18. P: Maintain cervical collar (C2 lateral mass fracture). Continue with critical care. Okay for orthopedics to proceed with procedures.
--- NOTE | 2018-02-03 11:12 | P.PNGI ---
Subjective Interval history: Status post PEG tube placement continues to be in the intensive care setting plan for OR today for humerus repair PEG tube clean dry and intact <Ana Luisa Ceballos - Last Filed: 02/03/18 11:13> Physical Exam Vital signs: Vital Signs 02/02/18 11:23 02/02/18 12:00 02/02/18 12:20 Temperature 99.7 F H Pulse Rate 102 H Respiratory Rate 16 16 16 Blood Pressure 104/59 L Pulse Oximetry 93 L 92 L 02/02/18 14:00 02/02/18 15:32 02/02/18 16:00 Temperature 100.4 F H Pulse Rate 94 H 104 H Respiratory Rate 16 16 Blood Pressure 113/64 Pulse Oximetry 97 96 02/02/18 18:00 02/02/18 18:46 02/02/18 19:43 Temperature Pulse Rate 91 H Respiratory Rate 16 16 Blood Pressure Pulse Oximetry 100 02/02/18 20:00 02/02/18 22:00 02/03/18 00:00 Temperature 100.4 F H 100.8 F H Pulse Rate 93 H 91 H 98 H Respiratory Rate 16 16 Blood Pressure 112/63 144/70 H Pulse Oximetry 99 97 02/03/18 00:33 02/03/18 02:00 02/03/18 04:00 Temperature 100.4 F H Pulse Rate 90 94 H Respiratory Rate 16 16 Blood Pressure 114/63 Pulse Oximetry 97 96 02/03/18 04:41 02/03/18 06:00 02/03/18 07:29 Temperature Pulse Rate 94 H Respiratory Rate 16 21 Blood Pressure Pulse Oximetry 96 100 Intake & Output 02/02/18 02/03/18 02/03/18 18:59 06:59 18:59 Intake Total 650 / 650 660 / 660 100 / 100 Output Total 1600 / 1600 1500 / 1500 Balance -950 / -950 -840 / -840 100 / 100 Weight 89 kg Intake: IV 650 / 650 300 / 300 100 / 100 Diprivan 1000 mg/100 ml Inj 1, 100 / 100 100 / 100 000 mg In 100 ml @ 5 MCG/KG/MIN 2.361 mls/hr IV.CONT TITRATE PRN Rx#:[id number] Zyvox 600 mg Premix 300 ML @ 300 / 300 300 / 300 300 mls/hr IV.SIG Q12H LUCIUS Rx#: [id number] fentaNYL 10 mcg/mL Premix Drip 250 / 250 2,500 mcg In 250 ml @ 50 MCG/HR 5 mls/hr IV.SIG TITRATE PRN Rx #:[id number] Oral 0 / 0 Tube Feeding 0 / 0 Water Bolus Amount 360 / 360 Output: Urine Amount (Catheter) 1600 / 1600 1500 / 1500 Indwelling Temp Sensing 1600 / 1600 1500 / 1500 Catheter Other: Date of Last Bowel Movement 02/02/18 02/02/18 # Bowel Movements 1 0 - Constitutional no acute distress - Routine HEENT Exam Head: Present: abrasion (Facial and cranium) ENT: Present: mucous membranes moist - Routine Cardiovascular Exam Present: S1, S2 - Routine Abdominal Exam Present: soft, normoactive bowel sounds, drain (New gastric drain clamped) - Urinary Catheter Management Indwelling Temp Sensing Catheter Cath placed during this visit: yes Reason for continuing: Hourly intake/output Insertion date: 01/24/18 Insertion time: 00:25 <Ana Luisa Ceballos - Last Filed: 02/03/18 11:13> Vital signs: Vital Signs 02/02/18 18:00 02/02/18 18:46 02/02/18 19:43 Temperature Pulse Rate 91 H Respiratory Rate 16 16 Blood Pressure Pulse Oximetry 100 02/02/18 20:00 02/02/18 22:00 02/03/18 00:00 Temperature 100.4 F H 100.8 F H Pulse Rate 93 H 91 H 98 H Respiratory Rate 16 16 Blood Pressure 112/63 144/70 H Pulse Oximetry 99 97 02/03/18 00:33 02/03/18 02:00 02/03/18 04:00 Temperature 100.4 F H Pulse Rate 90 94 H Respiratory Rate 16 16 Blood Pressure 114/63 Pulse Oximetry 97 96 02/03/18 04:41 02/03/18 06:00 02/03/18 07:29 Temperature Pulse Rate 94 H Respiratory Rate 16 21 Blood Pressure Pulse Oximetry 96 100 02/03/18 08:00 02/03/18 10:00 02/03/18 11:41 Temperature 100.0 F H Pulse Rate 95 H 100 H Respiratory Rate 18 16 Blood Pressure 137/75 Pulse Oximetry 96 100 02/03/18 12:00 Temperature 99.0 F Pulse Rate 80 Respiratory Rate 16 Blood Pressure 99/61 L Pulse Oximetry 100 Intake & Output 02/02/18 02/03/18 02/03/18 18:59 06:59 18:59 Intake Total 650 / 650 660 / 660 463.35 / 463.35 Output Total 1600 / 1600 1500 / 1500 Balance -950 / -950 -840 / -840 463.35 / 463.35 Weight 89 kg Intake: IV 650 / 650 300 / 300 463.35 / 463.35 Diprivan 1000 mg/100 ml Inj 1, 100 / 100 100 / 100 000 mg In 100 ml @ 5 MCG/KG/MIN 2.361 mls/hr IV.CONT TITRATE PRN Rx#:[id number] Zyvox 600 mg Premix 300 ML @ 300 / 300 300 / 300 300 mls/hr IV.SIG Q12H LUCIUS Rx#: [id number] Cyklokapron Inj 1,335 MG In NS 113.35 / 113.35 Inj 100 ML @ 200 mls/hr IV.SIG ONCE LUCIUS Rx#:[id number] fentaNYL 10 mcg/mL Premix Drip 250 / 250 250 / 250 2,500 mcg In 250 ml @ 50 MCG/HR 5 mls/hr IV.SIG TITRATE PRN Rx #:[id number] Oral 0 / 0 Tube Feeding 0 / 0 Water Bolus Amount 360 / 360 Output: Urine Amount (Catheter) 1600 / 1600 1500 / 1500 Indwelling Temp Sensing 1600 / 1600 1500 / 1500 Catheter Other: Date of Last Bowel Movement 02/02/18 02/02/18 02/02/18 # Bowel Movements 1 0 - Urinary Catheter Management Indwelling Temp Sensing Catheter Cath placed during this visit: no <Max Rushing E - Last Filed: 02/03/18 16:34> Results - Labs CBC & Chem 7: 02/03/18 03:50 02/03/18 03:50 Laboratory Results - last 24 hr 02/03/18 02/03/18 02/03/18 03:50 03:50 05:44 WBC 11.7 H RBC 2.75 L Hgb 8.4 L Hct 25.4 L MCV 92.5 MCH 30.7 MCHC 33.1 RDW 17.1 Plt Count 600 H MPV 7.5 Neut % (Auto) 71.1 H Lymph % (Auto) 15.6 [place] % (Auto) 12.1 H Eos % (Auto) 0.8 Baso % (Auto) 0.4 Neut # (Auto) 8.3 H Lymph # (Auto) 1.8 [place] # (Auto) 1.4 H Eos # (Auto) 0.1 Baso # (Auto) 0.0 WBC Differential . Differential Comment Auto diff final Puncture Site Right radial Patient Temperature 98.6 O2 Saturation 97 ABG pH 7.51 H* ABG pCO2 35 L ABG pO2 113 ABG HCO3 28 H ABG O2 Content 12.0 ABG Base Excess 4.6 H ABG Methemoglobin 1.0 Saqib Test Present Hemoglobin 8.7 L Carboxyhemoglobin 1.3 O2 Delivery Device Ventilator Vent Setting Prvc/ac Inspired O2 55 Critical Value Yes Sodium 140 Potassium 3.6 Chloride 103 Carbon Dioxide 27.4 Anion Gap 10 BUN 10 Creatinine 0.59 L Estimated GFR Greater than 89 Random Glucose 117 H Calcium 8.5 Total Bilirubin 0.5 AST 46 H ALT 23 Alkaline Phosphatase 79 Total Protein 6.7 Albumin 1.8 L Microbiology 01/29/18 22:30 Blood - Peripheral Aerobic Blood Culture - Final No growth in 5 days 01/29/18 22:30 Blood - Peripheral Anaerobic Blood Culture - Preliminary QNS - See aerobic report. 01/29/18 22:35 Blood - Peripheral Aerobic Blood Culture - Final No growth in 5 days 01/29/18 22:35 Blood - Peripheral Anaerobic Blood Culture - Final <Ana Luisa Ceballos - Last Filed: 02/03/18 11:13> - Labs CBC & Chem 7: 02/03/18 03:50 02/03/18 03:50 Laboratory Results - last 24 hr 02/03/18 02/03/18 02/03/18 03:50 03:50 05:44 WBC 11.7 H RBC 2.75 L Hgb 8.4 L Hct 25.4 L MCV 92.5 MCH 30.7 MCHC 33.1 RDW 17.1 Plt Count 600 H MPV 7.5 Neut % (Auto) 71.1 H Lymph % (Auto) 15.6 [place] % (Auto) 12.1 H Eos % (Auto) 0.8 Baso % (Auto) 0.4 Neut # (Auto) 8.3 H Lymph # (Auto) 1.8 [place] # (Auto) 1.4 H Eos # (Auto) 0.1 Baso # (Auto) 0.0 WBC Differential . Differential Comment Auto diff final Puncture Site Right radial Patient Temperature 98.6 O2 Saturation 97 ABG pH 7.51 H* ABG pCO2 35 L ABG pO2 113 ABG HCO3 28 H ABG O2 Content 12.0 ABG Base Excess 4.6 H ABG Methemoglobin 1.0 Saqib Test Present Hemoglobin 8.7 L Carboxyhemoglobin 1.3 O2 Delivery Device Ventilator Vent Setting Prvc/ac Inspired O2 55 Critical Value Yes Sodium 140 Potassium 3.6 Chloride 103 Carbon Dioxide 27.4 Anion Gap 10 BUN 10 Creatinine 0.59 L Estimated GFR Greater than 89 Random Glucose 117 H Calcium 8.5 Total Bilirubin 0.5 AST 46 H ALT 23 Alkaline Phosphatase 79 Total Protein 6.7 Albumin 1.8 L MTS Gel Crossmatch 02/03/18 14:00 WBC RBC Hgb Hct MCV MCH MCHC RDW Plt Count MPV Neut % (Auto) Lymph % (Auto) [place] % (Auto) Eos % (Auto) Baso % (Auto) Neut # (Auto) Lymph # (Auto) [place] # (Auto) Eos # (Auto) Baso # (Auto) WBC Differential Differential Comment Puncture Site Patient Temperature O2 Saturation ABG pH ABG pCO2 ABG pO2 ABG HCO3 ABG O2 Content ABG Base Excess ABG Methemoglobin Saqib Test Hemoglobin Carboxyhemoglobin O2 Delivery Device Vent Setting Inspired O2 Critical Value Sodium Potassium Chloride Carbon Dioxide Anion Gap BUN Creatinine Estimated GFR Random Glucose Calcium Total Bilirubin AST ALT Alkaline Phosphatase Total Protein Albumin MTS Gel Crossmatch See Detail Microbiology 01/29/18 22:30 Blood - Peripheral Aerobic Blood Culture - Final No growth in 5 days 01/29/18 22:30 Blood - Peripheral Anaerobic Blood Culture - Preliminary QNS - See aerobic report. 01/29/18 22:35 Blood - Peripheral Aerobic Blood Culture - Final No growth in 5 days 01/29/18 22:35 Blood - Peripheral Anaerobic Blood Culture - Final - Imaging Impressions Humerus X-Ray 02/03/18 00:00 CONCLUSION: Status post ORIF of left humeral fracture with hardware in good position. <Max Rushing E - Last Filed: 02/03/18 16:34> Assessment and Plan - Plan 02/03/2018 patient is status post PEG tube placement without any complications performed on 02/02/2018. Currently remains in the intensive care setting and is going to OR today for humerus repair. PEG tube is clean dry and intact and clamped for now. okay to start feedings when patient is back from OR. Nutritional consult information noted and recommendation was Jevity 1.5 at goal rate of 60 cc an hour. Plan N.p.o. for now planning OR today for humerus repair Okay to use medications and PEG tube and start feedings Jevity 1.5 at trickle feed , goal rate 60 cc an hour after patient is back from surgery Monitor for any high residuals and flush tube with 50 cc of water every 4-6 hours Apply abdominal binder if necessary for protection Clamp G-tube after use and flush Call GI for any acute issues otherwise we will sign off Patient was seen per myself and Dr. Rushing, note was written on his behalf <Ana Luisa Ceballos M - Last Filed: 02/03/18 11:13> - Plan Patient seen and examined Agree with above Continue with current supportive care Monitor labs We will sign off <Max Rushing - Last Filed: 02/03/18 16:34>
[2018-02-03] MEDS: fentaNYL 10 mcg/mL Premix Drip 2,500 MCG/250 ML BAG IV.SIG PRN (11:21)
[2018-02-03] MEDS ORDERED: ceFAZolin 2 GM Premix Inj 2 GM/50 ML PIGGYBACK IV.SIG ONE (12:59)
[2018-02-03] MEDS ORDERED: Electrolytes R/Dextrose 5% Inj 1,000 ML IV.CONT ONE (13:14)
[2018-02-03] MEDS ORDERED: Sodium Chlor 0.9% Inj 500 ML IV.CONT ONE (13:14)
[2018-02-03] MEDS ORDERED: Phenylephrine/NS 1000 MCG/10ML Syringe IV.PUSH ONE (13:14)
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
[2018-02-03] MEDS ORDERED: Heparin - SQ 10,000 UNITS/ML Vial ONE (15:15)
[2018-02-03] MEDS ORDERED: Thrombin Topical Soln 5,000 UNIT Vial TOPICAL ONE (15:42)
[2018-02-03] MEDS ORDERED: Gelatin Size 100 Topical Foam ONE (15:43)
--- NOTE | 2018-02-03 15:44 | XR ---
EXAM DATE: 02/03/2018 12:00 AM EDT AGE/SEX: 57 years / Male INDICATIONS: ORIF left distal humerus fracture. CLINICAL DATA: This is the patient's subsequent encounter. Patient reports that signs and symptoms h ave been present for 1 week and indicates a pain score of Nonresponsive. MEDICAL/SURGICAL HISTORY: Non-responsive. Non-responsive. COMPARISON: No prior exams available for comparison. FINDINGS: The patient is status post ORIF of left humerus with hardware in good position. CONCLUSION: Status post ORIF of left humeral fracture with hardware in good position. Electronically signed by: David Mo MD 02/03/2018 3:42 PM EDT
[2018-02-03] MEDS ORDERED: Post-op Orders (for Pharmacy) OTHER STA (16:58)
--- NOTE | 2018-02-03 17:08 | P.OP ---
- Preoperative Diagnosis (1) Closed right acetabular fracture (2) Comminuted left humeral fracture with routine healing Date of procedure: 02/03/18 Procedure: Open reduction internal fixation left humerus shaft fracture, open reduction to fixation left acetabulum Surgeon: Mack Snyder MD Ammonium Hydroxide Operator: Jean Pierre Guillaume PA-C The surgical procedure was assisted by my physician diploma dental assistant. My P.A. presence was necessary throughout this case for the manipulation and positioning of the surgical extremity. My P.A. was assisting me throughout the duration of this procedure. The skill set of a physician diploma dental assistant was medically necessary to complete this procedure. During the surgical case the rn surgical was working at the back table and the physician diploma dental assistant was directly assisting me. Operation and Findings: Patient was seen and evaluated preoperatively. Patient has been intubated and sedated in the intensive care unit. Treatment options were discussed with patient's family regarding humerus fracture and acetabular fracture including surgical and nonsurgical treatments. After detailed discussion of risk and benefits of procedure patients family wishes to proceed with surgery. Risks of surgery include bleeding, infection, nonunion, malunion, painful hardware, loss of motion of shoulder and elbow, weakness and numbness of arm, as well as medical competitions including blood clots stroke and . Patient was brought to operating room and placed on the OR table. GETA was administered by anesthesiologist. Patient was positioned in lateral decubitus position. Extremities were well-padded. Axillary roll was placed. Operative arm and shoulder were prepped with alcohol followed by Hibiclens and draped usual sterile fashion. Timeout procedure was performed. IV antibiotics were given prior to incision. A standard posterior approach was utilized. Subcutaneous tissues was dissected with Bovie. The triceps muscle was split midline. The radial nerve was identified and protected throughout the procedure. The nerve was intact. The fracture was identified. Soft tissue was removed from the fracture site. Fracture site was cleaned with curettes. At this point the fracture was reduced using fracture tenaculums. Multiplanar fluoroscopy confirmed excellent of fracture. A Synthes 3.5 plate was contoured to fit the humerus. Plate was provisionally held the bone with K wires. 3.5 cortical screws were placed on each side of the fracture. The screws were placed to add compression to fracture. Multiple screws were placed in each side of the fracture. All screws were predrilled and premeasured for appropriate length. Final fluoroscopy revealed excellent alignment of fracture with well-placed hardware. Incision was thoroughly irrigated. Fascia was closed with #1 Vicryl, subcutaneous tissues closed with 3-0 Vicryl, and skin was closed with eleno. Sterile dressings were applied. Patient was now repositioned. Attention was now turned towards the right acetabulum. Patient was placed in supine position on a Surinder table. The operative hip and leg were prepped with alcohol and draped in the usual sterile fashion. Time-out procedure was performed. The procedure began with a standard Pfannenstiel incision. The subcutaneous tissue was dissected with Bovie. The linea alba was identified. The rectus abdominous muscle was split along the linea alba. Malleable retractors were placed to protect the bladder at all times. At this point the pelvic brim was exposed. A second incision was made over the iliac crest. Fascia was elevated off the iliac crest to expose the remainder of the anterior column. Both incisions were used for reduction and fixation of the fracture. There were venous house mortise vessels which were ligated the fracture was now visualized. Attention was now turned towards reduction of fracture. The anterior column was reduced first. Traction was applied. The anterior column was reduced to the posterior column. Fracture fragment was manipulated to achieve anatomic reduction. Steinmann pins were used to hold provisional fixation. Multiplanar fluoroscopy confirmed well aligned fracture. At this point a pelvic plate was contoured to fit the pelvic brim. The plate was provisionally held to the pelvis with K wires. 3.5 cortical screws were used to compress plate to bone. Multiple screws were placed on each side of the fracture. Care was taken to avoid penetration of the articular surface. The plate was positioned to aid in compression of the fracture. K-wires were removed. An additional 7.3 screw was placed in the super acetabular position for additional stability of the fracture. Final fluoroscopy revealed excellent alignment of the fracture with well-placed hardware. The incision and wound were now thoroughly irrigated. A drain was placed deep. The fascia layers were closed with #1 Vicryl, the subcutaneous tissue was closed with 3-0 Vicryl. The skin was closed with eleno. Sterile dressings were applied. The patient was transferred to Recovery in stable condition.
--- NOTE | 2018-02-03 17:08 | XR ---
EXAM DATE: 02/03/2018 12:00 AM EDT AGE/SEX: 57 years / Male INDICATIONS: Right acetabulum open reduction internal fixation. CLINICAL DATA: This is the patient's initial encounter. Patient reports that signs and symptoms have been present for 1 day and indicates a pain score of Nonresponsive. MEDICAL/SURGICAL HISTORY: Non-responsive. Non-responsive. COMPARISON: No prior exams available for comparison. FINDINGS: 7 magnified C-arm spot views of the pelvis show an orthopedic plate with anchoring screws along the p eritoneal lining of the right hemipelvis. Good alignment noted. A solitary orthopedic screw traverses the right iliac wing. CONCLUSION: Limited image as detailed above. Electronically signed by: Joshua Harding MD 02/03/2018 5:07 PM EDT
[2018-02-03] MEDS ORDERED: ceFAZolin Inj 2,000 MG in Sodium Chlor 0.9% Inj 80 ML IV.SIG SCH (22:00)
[2018-02-03] MEDS: ceFAZolin 2 GM Premix Inj 2 GM/50 ML PIGGYBACK IV.SIG SCH (22:04)
[2018-02-04] MEDS: Pantoprazole Inj 40 MG Vial IV.PUSH SCH (00:26)
[2018-02-04] MEDS: Oral Hygiene Kit OROPHARYNG SCH ×4 (00:26→17:09)
[2018-02-04] MEDS: fentaNYL 10 mcg/mL Premix Drip 2,500 MCG/250 ML BAG IV.SIG PRN ×2 (02:06→16:39)
--- NOTE | 2018-02-04 05:01 | XR ---
EXAM DATE: 02/04/2018 6:00 AM EDT AGE/SEX: 57 years / Male INDICATIONS: Shortness of breath. CLINICAL DATA: This is the patient's subsequent encounter. Patient reports that signs and symptoms h ave been present for 1 week and indicates a pain score of Nonresponsive. MEDICAL/SURGICAL HISTORY: None. None. COMPARISON: [facility] [place], CHEST 1V SINGLE AP, 02/02/2018. . FINDINGS: Stable tracheostomy and right subclavian central line. Interval removal of NGT. Improved aeration in the left lower lung zone with persistent pleural-parenchymal opacities in the right lower lung zone. Cardiomediastinal contours are within normal limits. Remainder of the exam is unchanged. CONCLUSION: 1. Interval removal of NGT. 2. Improved aeration in the left lower lung zone. 3. Persistent right lower lung zone airspace disease and likely trace pleural effusion. Electronically signed by: Darshan Britton MD 02/04/2018 5:00 AM EDT
[2018-02-04 05:11] LABS: Baso % (Auto) 0.4 % (0.0-2.0); Eos # (Auto) 0.1 th/mm3 (0.0-0.4); Eos % (Auto) 0.6 % (0.0-4.0); Hematocrit 26.8 % (39.0-51.0); Hemoglobin 8.8 gm/dL (13.0-17.0); Lymph # (Auto) 1.7 th/mm3 (1.0-4.8); Lymph % (Auto) 12.8 % (9.0-44.0); Mean Corpuscular HGB Conc 32.9 % (32.0-36.0); Mean Corpuscular Hemoglobin 31.6 pg (27.0-34.0); Mean Corpuscular Volume 96.1 fL (80.0-100.0); Mean Platelet Volume 7.4 fL (7.0-11.0); Mono # (Auto) 1.5 th/mm3 (0.0-0.9); Mono % (Auto) 10.9 % (0.0-8.0); Neut # (Auto) 10.1 th/mm3 (1.8-7.7); Neut % (Auto) 75.3 % (16.0-70.0); Platelet Count 579 th/mm3 (150-450); Red Blood Count 2.79 mil/mm3 (4.50-5.90); Red Cell Distribution Width 16.9 % (11.6-17.2); White Blood Count 13.4 th/mm3 (4.0-11.0)
[2018-02-04] MEDS: ceFAZolin 2 GM Premix Inj 2 GM/50 ML PIGGYBACK IV.SIG SCH ×3 (05:22→23:04)
[2018-02-04] MEDS: Propofol 1000 mg/100 ml Inj 1,000 MG/100 ML BOTTLE IV.CONT PRN (05:24)
[2018-02-04 05:40] LABS: Alanine Aminotransferase 24 U/L (12-78); Albumin 1.7 g/dL (3.4-5.0); Anion Gap 9 meq/L (5-15); Aspartate Aminotransferase 58 U/L (15-37); Blood Urea Nitrogen 10 mg/dL (7-18); Calcium 7.9 mg/dL (8.5-10.1); Carbon Dioxide 25.5 meq/L (21.0-32.0); Chloride 108 meq/L (98-107); Glomerular Filtration Rate Greater Than 89 mL/min (>89); Glucose,Random 107 mg/dL (74-106); Potassium 3.7 meq/L (3.5-5.1); Sodium 142 meq/L (136-145)
[2018-02-04 05:42] LABS: Alkaline Phosphatase 102 U/L (45-117); Total Protein 6.2 g/dL (6.4-8.2)
[2018-02-04 06:12] LABS: ABG Base Excess -1.3 mmol/L (-2-2); ABG PCO2 38 mmHg (38-42); ABG PO2 63 mmHg (61-120)
--- NOTE | 2018-02-04 07:35 | P.PNOP ---
Subjective Interval history: POD 1 s/p ORIF left distal humerus and right acetabulum POD 4 s/p IMN left tibia trached. no changes Physical Exam Vital signs: Vital Signs 02/03/18 08:00 02/03/18 10:00 02/03/18 11:41 Temperature 100.0 F H Pulse Rate 95 H 100 H Respiratory Rate 18 16 Blood Pressure 137/75 Pulse Oximetry 96 100 02/03/18 12:00 02/03/18 17:58 02/03/18 18:00 Temperature 99.0 F Pulse Rate 80 94 H Respiratory Rate 16 16 Blood Pressure 99/61 L Pulse Oximetry 100 99 02/03/18 19:42 02/03/18 20:00 02/03/18 22:00 Temperature 99.1 F Pulse Rate 100 H 104 H Respiratory Rate 16 16 Blood Pressure 131/73 Pulse Oximetry 99 100 02/04/18 00:00 02/04/18 00:07 02/04/18 02:00 Temperature 100.2 F H Pulse Rate 102 H 96 H Respiratory Rate 16 16 Blood Pressure 113/72 Pulse Oximetry 100 100 02/04/18 04:00 02/04/18 04:20 02/04/18 06:00 Temperature 99.1 F Pulse Rate 94 H 96 H Respiratory Rate 16 16 Blood Pressure 94/66 L Pulse Oximetry 100 100 Intake & Output 02/03/18 02/04/18 02/04/18 18:59 06:59 18:59 Intake Total 3003.35 / 3003.35 1450 / 1450 Output Total 2200 / 2200 4880 / 4880 Balance 803.35 / 803.35 -3430 / -3430 Weight 77.4 kg Intake: IV 883.35 / 883.35 730 / 730 Diprivan 1000 mg/100 ml Inj 1, 170 / 170 30 / 30 000 mg In 100 ml @ 5 MCG/KG/MIN 2.361 mls/hr IV.CONT TITRATE PRN Rx#:[id number] Ofirmev Inj 1,000 mg In 100 ml 100 / 100 @ 400 mls/hr IV.SIG Q6H PRN Rx# :[id number] Zyvox 600 mg Premix 300 ML @ 300 / 300 300 / 300 300 mls/hr IV.SIG Q12H [facility] Rx#: [id number] Cyklokapron Inj 1,335 MG In NS 113.35 / 113.35 Inj 100 ML @ 200 mls/hr IV.SIG ONCE [facility] Rx#:[id number] Ancef 2 GM Premix Inj 2 gm In 50 / 50 50 / 50 50 ml @ 100 mls/hr IV.SIG Q8H [facility] Rx#:[id number] fentaNYL 10 mcg/mL Premix Drip 250 / 250 250 / 250 2,500 mcg In 250 ml @ 50 MCG/HR 5 mls/hr IV.SIG TITRATE PRN Rx #:[id number] Tube Irrigant 120 / 120 Water Bolus Amount 720 / 720 Anesthesia Amount 1999 / 1999 Output: Estimated Blood Loss 600 / 600 Urine Amount (Catheter) 1600 / 1600 4800 / 4800 Indwelling Temp Sensing 1600 / 1600 4800 / 4800 Catheter Wound Drainage 0 / 0 80 / 80 # 1 Right Hip TAYLOR Drain 0 / 0 80 / 80 Other: Date of Last Bowel Movement 02/02/18 02/02/18 # Bowel Movements 0 Narrative: LLE: dressings clean and dry. intact. LUE: +splint. intact. Pelvis: dressings clean and dry. intact. +drain. - Urinary Catheter Management Indwelling Temp Sensing Catheter Cath placed during this visit: yes Reason for continuing: Hourly intake/output Insertion date: 01/24/18 Insertion time: 00:25 Results - Labs CBC & Chem 7: 02/04/18 04:15 02/04/18 04:15 Laboratory Results - last 24 hr 02/03/18 02/04/18 02/04/18 14:00 04:15 04:15 WBC 13.4 H RBC 2.79 L Hgb 8.8 L Hct 26.8 L MCV 96.1 D MCH 31.6 MCHC 32.9 RDW 16.9 Plt Count 579 H MPV 7.4 Neut % (Auto) 75.3 H Lymph % (Auto) 12.8 [place] % (Auto) 10.9 H Eos % (Auto) 0.6 Baso % (Auto) 0.4 Neut # (Auto) 10.1 H Lymph # (Auto) 1.7 [place] # (Auto) 1.5 H Eos # (Auto) 0.1 Baso # (Auto) 0.0 WBC Differential . Differential Comment Auto diff final Puncture Site Patient Temperature O2 Saturation ABG pH ABG pCO2 ABG pO2 ABG HCO3 ABG O2 Content ABG Base Excess ABG Methemoglobin Saqib Test Hemoglobin Carboxyhemoglobin O2 Delivery Device Vent Setting Inspired O2 Critical Value Sodium 142 Potassium 3.7 Chloride 108 H Carbon Dioxide 25.5 Anion Gap 9 BUN 10 Creatinine 0.64 Estimated GFR Greater than 89 Random Glucose 107 H Calcium 7.9 L Total Bilirubin 0.7 AST 58 H ALT 24 Alkaline Phosphatase 102 Total Protein 6.2 L Albumin 1.7 L MTS Gel Crossmatch See Detail 02/04/18 05:59 WBC RBC Hgb Hct MCV MCH MCHC RDW Plt Count MPV Neut % (Auto) Lymph % (Auto) [place] % (Auto) Eos % (Auto) Baso % (Auto) Neut # (Auto) Lymph # (Auto) [place] # (Auto) Eos # (Auto) Baso # (Auto) WBC Differential Differential Comment Puncture Site Right brachial Patient Temperature 98.6 O2 Saturation 89 L* ABG pH 7.40 ABG pCO2 38 ABG pO2 63 ABG HCO3 23 ABG O2 Content 11.4 L ABG Base Excess -1.3 ABG Methemoglobin 1.1 Saqib Test Present Hemoglobin 9.1 L Carboxyhemoglobin 1.4 O2 Delivery Device Ventilator Vent Setting Prvc-ac Inspired O2 55 Critical Value Yes Sodium Potassium Chloride Carbon Dioxide Anion Gap BUN Creatinine Estimated GFR Random Glucose Calcium Total Bilirubin AST ALT Alkaline Phosphatase Total Protein Albumin MTS Gel Crossmatch Microbiology 01/29/18 22:30 Blood - Peripheral Aerobic Blood Culture - Final No growth in 5 days 01/29/18 22:30 Blood - Peripheral Anaerobic Blood Culture - Preliminary QNS - See aerobic report. 01/29/18 22:35 Blood - Peripheral Aerobic Blood Culture - Final No growth in 5 days 01/29/18 22:35 Blood - Peripheral Anaerobic Blood Culture - Final - Imaging Impressions Humerus X-Ray 02/03/18 00:00 CONCLUSION: Status post ORIF of left humeral fracture with hardware in good position. Pelvis X-Ray 02/03/18 00:00 CONCLUSION: Limited image as detailed above. Chest X-Ray 02/04/18 06:00 CONCLUSION: 1. Interval removal of NGT. 2. Improved aeration in the left lower lung zone. 3. Persistent right lower lung zone airspace disease and likely trace pleural effusion. Assessment and Plan - Assessment and Plan 1) Left tibial shaft fracture removal of hardware and external fixation with open reduction internal fixation POD 4 Nonweightbearing left lower extremity daily dressing changes with Xeroform 4 x 4's and Pranav wrap. ok to transition to [place] dressings if minimal drainage 2) Left Periprosthetic Distal Humerus fx s/p ORIF - POD 1 -NWB -maintain splint 3) Right Acetabulum Fx s/p ORIF - POD 1 -TTWB -daily dressing changes with primapore and xeroform -maintain drain -will plan for DC of drain POD 3 -ortho surgeries complete -DVT prophylaxis -f/u with Goins or QUE in 2 weeks
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
[2018-02-04] MEDS: Chlorhexidine 0.12% Oral Kit 15 ML UDC OROPHARYNG SCH ×2 (09:01→20:11)
[2018-02-04] MEDS: Senna/Docusate Sodium 8.6/50 MG Tablet PO SCH ×2 (09:02→20:11)
[2018-02-04] MEDS: Calcium/Vitamin D 250/125 MG Tablet PO SCH ×3 (09:03→17:09)
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
[2018-02-04] MEDS: Dexmedetomidine Inj 200 MCG in Sodium Chlor 0.9% Inj 48 ML IV.CONT PRN ×2 (15:25→19:32)
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
[2018-02-04] MEDS: Enoxaparin Inj 30 MG/0.3 ML Syringe SQ SCH (16:40)
[2018-02-04] MEDS ORDERED: Albumin Human 5% Inj 500 ML IV.SIG ONE (21:00)
[2018-02-05] MEDS: Oral Hygiene Kit OROPHARYNG SCH ×5 (00:33→23:46)
[2018-02-05] MEDS: Pantoprazole Inj 40 MG Vial IV.PUSH SCH (00:33)
[2018-02-05] MEDS: Dexmedetomidine Inj 200 MCG in Sodium Chlor 0.9% Inj 48 ML IV.CONT PRN ×6 (00:34→23:46)
[2018-02-05] MEDS: Enoxaparin Inj 30 MG/0.3 ML Syringe SQ SCH ×2 (03:08→16:07)
[2018-02-05 04:25] LABS: Baso % (Auto) 0.3 % (0.0-2.0); Eos # (Auto) 0.3 th/mm3 (0.0-0.4); Eos % (Auto) 1.9 % (0.0-4.0); Hematocrit 21.5 % (39.0-51.0); Hemoglobin 7.3 gm/dL (13.0-17.0); Lymph # (Auto) 2.1 th/mm3 (1.0-4.8); Mean Corpuscular Volume 94.2 fL (80.0-100.0); Mean Platelet Volume 7.5 fL (7.0-11.0); Mono # (Auto) 1.7 th/mm3 (0.0-0.9); Mono % (Auto) 12.2 % (0.0-8.0); Neut # (Auto) 9.7 th/mm3 (1.8-7.7); Neut % (Auto) 70.6 % (16.0-70.0); Platelet Count 583 th/mm3 (150-450); Red Blood Count 2.28 mil/mm3 (4.50-5.90); Red Cell Distribution Width 16.9 % (11.6-17.2); White Blood Count 13.7 th/mm3 (4.0-11.0)
[2018-02-05 04:47] LABS: Anion Gap 10 meq/L (5-15); Aspartate Aminotransferase 48 U/L (15-37); Blood Urea Nitrogen 12 mg/dL (7-18); Calcium 7.8 mg/dL (8.5-10.1); Carbon Dioxide 22.4 meq/L (21.0-32.0); Chloride 110 meq/L (98-107); Glomerular Filtration Rate Greater Than 89 mL/min (>89); Glucose,Random 145 mg/dL (74-106); Potassium 3.1 meq/L (3.5-5.1); Sodium 142 meq/L (136-145)
[2018-02-05 04:48] LABS: Alanine Aminotransferase 19 U/L (12-78)
[2018-02-05 04:50] LABS: Alkaline Phosphatase 118 U/L (45-117); Total Protein 6.5 g/dL (6.4-8.2)
[2018-02-05] MEDS: ceFAZolin 2 GM Premix Inj 2 GM/50 ML PIGGYBACK IV.SIG SCH ×2 (05:39→14:50)
[2018-02-05 05:42] LABS: ABG Base Excess -3.5 mmol/L (-2-2); ABG PCO2 40 mmHg (38-42); ABG PO2 87 mmHg (61-120)
[2018-02-05] MEDS: fentaNYL 10 mcg/mL Premix Drip 2,500 MCG/250 ML BAG IV.SIG PRN (05:49)
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
--- NOTE | 2018-02-05 08:23 | P.PNOP ---
Subjective Interval history: Intubated but stable Physical Exam Vital signs: Vital Signs 02/04/18 10:00 02/04/18 12:00 02/04/18 14:00 Temperature 99.9 F H Pulse Rate 105 H 103 H 97 H Respiratory Rate 16 Blood Pressure 106/73 Pulse Oximetry 100 02/04/18 15:49 02/04/18 16:00 02/04/18 18:00 Temperature 99.3 F Pulse Rate 95 H 94 H Respiratory Rate 17 16 Blood Pressure 97/69 L Pulse Oximetry 100 100 02/04/18 20:00 02/04/18 20:15 02/05/18 00:00 Temperature 98.9 F 99.7 F H Pulse Rate 88 98 H Respiratory Rate 16 21 Blood Pressure 87/53 L 105/63 Pulse Oximetry 100 100 99 02/05/18 00:42 02/05/18 02:00 02/05/18 04:00 Temperature 99.0 F Pulse Rate 80 100 H Respiratory Rate 16 16 Blood Pressure 100/71 Pulse Oximetry 96 98 02/05/18 06:00 02/05/18 07:29 Temperature Pulse Rate 82 Respiratory Rate 16 Blood Pressure Pulse Oximetry 100 Intake & Output 02/04/18 02/05/18 02/05/18 18:59 06:59 18:59 Intake Total 1723 / 1723 2223 / 2223 Output Total 2540 / 2540 920 / 920 Balance -817 / -817 1303 / 1303 Weight 79.5 kg Intake: IV 1535 / 1535 1300 / 1300 Precedex Inj 200 MCG In NS Inj 150 / 150 48 ML @ 0.2 MCG/KG/HR 3.87 mls/ hr IV.CONT TITRATE PRN Rx#: [id number] LR 1000 mL Inj 1,000 ML @ 80 820 / 820 mls/hr IV.CONT .[id number] [facility] Rx# :[id number] Diprivan 1000 mg/100 ml Inj 1, 65 / 65 0 / 0 000 mg In 100 ml @ 5 MCG/KG/MIN 2.361 mls/hr IV.CONT TITRATE PRN Rx#:[id number] Alburx 5% Inj 500 ML @ 250 mls/ 500 / 500 hr IV.SIG ONCE ONE Rx#:[id number] Zyvox 600 mg Premix 300 ML @ 300 / 300 300 / 300 300 mls/hr IV.SIG Q12H [facility] Rx#: [id number] Ancef 2 GM Premix Inj 2 gm In 100 / 100 100 / 100 50 ml @ 100 mls/hr IV.SIG Q8H [facility] Rx#:[id number] fentaNYL 10 mcg/mL Premix Drip 250 / 250 250 / 250 2,500 mcg In 250 ml @ 50 MCG/HR 5 mls/hr IV.SIG TITRATE PRN Rx #:[id number] Tube Feeding 128 / 128 563 / 563 Tube Irrigant 60 / 60 Water Bolus Amount 360 / 360 Output: Urine 850 / 850 Urine Amount (Catheter) 2500 / 2500 Indwelling Temp Sensing 2500 / 2500 Catheter Wound Drainage 40 / 40 70 / 70 # 1 Right Hip TAYLOR Drain 40 / 40 70 / 70 Other: Date of Last Bowel Movement 02/02/18 02/02/18 Narrative: Right lower extremity: Clean dry dressings intact. Distally intact pulses and good capillary refills - Urinary Catheter Management Indwelling Temp Sensing Catheter Cath placed during this visit: yes Reason for continuing: Hourly intake/output Insertion date: 01/24/18 Insertion time: 00:25 Results - Labs CBC & Chem 7: 02/05/18 04:11 02/05/18 04:11 Laboratory Results - last 24 hr 01/23/18 02/03/18 02/05/18 23:40 14:00 04:11 WBC 13.7 H RBC 2.28 L Hgb 7.3 L Hct 21.5 L MCV 94.2 MCH 32.0 MCHC 34.0 RDW 16.9 Plt Count 583 H MPV 7.5 Neut % (Auto) 70.6 H Lymph % (Auto) 15.0 Patrick % (Auto) 12.2 H Eos % (Auto) 1.9 Baso % (Auto) 0.3 Neut # (Auto) 9.7 H Lymph # (Auto) 2.1 Patrick # (Auto) 1.7 H Eos # (Auto) 0.3 Baso # (Auto) 0.0 WBC Differential . Differential Comment Auto diff final Puncture Site Patient Temperature O2 Saturation ABG pH ABG pCO2 ABG pO2 ABG HCO3 ABG O2 Content ABG Base Excess ABG Methemoglobin Hemoglobin Carboxyhemoglobin O2 Delivery Device Vent Setting Inspired O2 Critical Value Sodium Potassium Chloride Carbon Dioxide Anion Gap BUN Creatinine Estimated GFR Random Glucose Calcium Total Bilirubin AST ALT Alkaline Phosphatase Total Protein Albumin Blood Type O Positive Antibody Screen Negative MTS Gel Crossmatch See Detail See Detail 02/05/18 02/05/18 04:11 05:30 WBC RBC Hgb Hct MCV MCH MCHC RDW Plt Count MPV Neut % (Auto) Lymph % (Auto) Patrick % (Auto) Eos % (Auto) Baso % (Auto) Neut # (Auto) Lymph # (Auto) Patrick # (Auto) Eos # (Auto) Baso # (Auto) WBC Differential Differential Comment Puncture Site Right brachial Patient Temperature 98.6 O2 Saturation 94 ABG pH 7.35 L ABG pCO2 40 ABG pO2 87 ABG HCO3 21 L ABG O2 Content 10.0 L ABG Base Excess -3.5 L ABG Methemoglobin 1.0 Hemoglobin 7.4 L* Carboxyhemoglobin 1.4 O2 Delivery Device Ventilator Vent Setting 16/600/it1.0/8peep Inspired O2 40 Critical Value Yes Sodium 142 Potassium 3.1 L Chloride 110 H Carbon Dioxide 22.4 Anion Gap 10 BUN 12 Creatinine 0.73 Estimated GFR Greater than 89 Random Glucose 145 H Calcium 7.8 L Total Bilirubin 0.5 AST 48 H ALT 19 Alkaline Phosphatase 118 H Total Protein 6.5 Albumin 2.0 L Blood Type Antibody Screen MTS Gel Crossmatch Microbiology 01/29/18 22:30 Blood - Peripheral Aerobic Blood Culture - Final No growth in 5 days 01/29/18 22:30 Blood - Peripheral Anaerobic Blood Culture - Final QNS - See aerobic report. Assessment and Plan - Assessment and Plan 1) Left tibial shaft fracture removal of hardware and external fixation with open reduction internal fixation POD 5 Nonweightbearing left lower extremity daily dressing changes with Xeroform 4 x 4's and Pranav wrap. ok to transition to primapore dressings if minimal drainage 2) Left Periprosthetic Distal Humerus fx s/p ORIF - POD 2 -NWB -maintain splint 3) Right Acetabulum Fx s/p ORIF - POD 2 -TTWB -daily dressing changes with primapore and xeroform -maintain drain -will plan for DC of drain POD 3 -ortho surgeries complete -DVT prophylaxis -f/u with Goins or PA in 2 weeks
[2018-02-05] MEDS ORDERED: Sod Chloride 0.9% Inj 1,000 ML IV.SIG ONE (09:00)
[2018-02-05] MEDS: Chlorhexidine 0.12% Oral Kit 15 ML UDC OROPHARYNG SCH ×2 (09:25→20:05)
[2018-02-05] MEDS: Senna/Docusate Sodium 8.6/50 MG Tablet PO SCH ×2 (09:27→21:07)
[2018-02-05] MEDS: Calcium/Vitamin D 250/125 MG Tablet PO SCH ×3 (09:27→17:25)
[2018-02-05] MEDS: QUEtiapine 25 MG Tablet PO SCH ×3 (11:43→17:25)
[2018-02-05 14:44] LABS: Hematocrit 24.5 % (39.0-51.0); Hemoglobin 8.5 gm/dL (13.0-17.0)
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
[2018-02-05] MEDS: Potassium Chlor 40 mEq Premix 40 MEQ/100 ML PIGGYBACK IV.SIG PRN ×2 (16:15→17:54)
[2018-02-05] MEDS: Haloperidol Inj 5 MG/ML Ampul IV.PUSH PRN (17:24)
[2018-02-06] MEDS: Pantoprazole Inj 40 MG Vial IV.PUSH SCH (00:17)
[2018-02-06] MEDS: Haloperidol Inj 5 MG/ML Ampul IV.PUSH PRN (03:30)
[2018-02-06] MEDS: Oral Hygiene Kit OROPHARYNG SCH ×3 (03:31→18:17)
[2018-02-06] MEDS: Enoxaparin Inj 30 MG/0.3 ML Syringe SQ SCH ×2 (03:31→15:20)
[2018-02-06] MEDS: Dexmedetomidine Inj 200 MCG in Sodium Chlor 0.9% Inj 48 ML IV.CONT PRN ×2 (03:52→20:14)
[2018-02-06 06:39] LABS: Baso % (Auto) 0.4 % (0.0-2.0); Eos # (Auto) 0.2 th/mm3 (0.0-0.4); Eos % (Auto) 2.4 % (0.0-4.0); Hematocrit 24.4 % (39.0-51.0); Hemoglobin 8.5 gm/dL (13.0-17.0); Lymph # (Auto) 1.3 th/mm3 (1.0-4.8); Lymph % (Auto) 13.4 % (9.0-44.0); Mean Corpuscular Volume 88.5 fL (80.0-100.0); Mean Platelet Volume 7.2 fL (7.0-11.0); Mono # (Auto) 1.1 th/mm3 (0.0-0.9); Mono % (Auto) 10.7 % (0.0-8.0); Neut # (Auto) 7.3 th/mm3 (1.8-7.7); Neut % (Auto) 73.1 % (16.0-70.0); Platelet Count 546 th/mm3 (150-450); Red Blood Count 2.75 mil/mm3 (4.50-5.90)
[2018-02-06 06:59] LABS: Anion Gap 9 meq/L (5-15); Blood Urea Nitrogen 9 mg/dL (7-18); Calcium 7.7 mg/dL (8.5-10.1); Carbon Dioxide 23.5 meq/L (21.0-32.0); Chloride 111 meq/L (98-107); Glomerular Filtration Rate Greater Than 89 mL/min (>89); Glucose,Random 139 mg/dL (74-106); Potassium 3.5 meq/L (3.5-5.1); Sodium 143 meq/L (136-145)
[2018-02-06 07:45] LABS: Eosinophils 3 % (0-4); Lymphocytes 12 % (9-44); Metamyelocytes 1 % (0-1); Monocytes 6 % (0-8); Promyelocyte 1 % (0-0); Tallied Nucleated RBC 3 (0-0)
[2018-02-06 07:47] LABS: Dimorphic RBC Present; Platelet Morphology Clumped (Normal); Spherocytes Occ
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
[2018-02-06] MEDS: Chlorhexidine 0.12% Oral Kit 15 ML UDC OROPHARYNG SCH ×2 (08:50→19:56)
[2018-02-06] MEDS: QUEtiapine 25 MG Tablet PO SCH ×3 (08:51→21:12)
[2018-02-06] MEDS: Senna/Docusate Sodium 8.6/50 MG Tablet PO SCH ×2 (08:51→21:13)
[2018-02-06] MEDS: Calcium/Vitamin D 250/125 MG Tablet PO SCH ×3 (08:51→18:17)
[2018-02-06] MEDS: Potassium Chloride 25 MEQ Effervescent Tablet PO PRN (08:52)
[2018-02-06] MEDS: Sod Chloride 0.9% Inj 1,000 ML IV.CONT SCH ×2 (11:19→22:11)
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
[2018-02-07] MEDS: Sod Chloride 0.9% Inj 1,000 ML IV.CONT SCH (00:44)
[2018-02-07] MEDS: Oral Hygiene Kit OROPHARYNG SCH ×4 (00:44→16:24)
[2018-02-07] MEDS: Pantoprazole Inj 40 MG Vial IV.PUSH SCH (00:45)
[2018-02-07] MEDS: Dexmedetomidine Inj 200 MCG in Sodium Chlor 0.9% Inj 48 ML IV.CONT PRN ×5 (01:29→20:19)
[2018-02-07 03:56] LABS: Baso # (Auto) 0.1 th/mm3 (0.0-0.2); Baso % (Auto) 0.7 % (0.0-2.0); Eos # (Auto) 0.3 th/mm3 (0.0-0.4); Eos % (Auto) 2.3 % (0.0-4.0); Lymph # (Auto) 1.8 th/mm3 (1.0-4.8); Lymph % (Auto) 16.2 % (9.0-44.0); Mean Corpuscular HGB Conc 33.4 % (32.0-36.0); Mean Corpuscular Hemoglobin 30.7 pg (27.0-34.0); Mean Corpuscular Volume 91.7 fL (80.0-100.0); Mean Platelet Volume 6.7 fL (7.0-11.0); Mono # (Auto) 1.4 th/mm3 (0.0-0.9); Mono % (Auto) 12.9 % (0.0-8.0); Neut # (Auto) 7.4 th/mm3 (1.8-7.7); Neut % (Auto) 67.9 % (16.0-70.0); Platelet Count 699 th/mm3 (150-450); Red Blood Count 3.28 mil/mm3 (4.50-5.90); Red Cell Distribution Width 18.7 % (11.6-17.2)
[2018-02-07 04:10] LABS: Anion Gap 6 meq/L (5-15); Blood Urea Nitrogen 7 mg/dL (7-18); Calcium 8.1 mg/dL (8.5-10.1); Carbon Dioxide 24.5 meq/L (21.0-32.0); Chloride 112 meq/L (98-107); Glomerular Filtration Rate Greater Than 89 mL/min (>89); Glucose,Random 120 mg/dL (74-106); Potassium 3.7 meq/L (3.5-5.1); Sodium 142 meq/L (136-145)
[2018-02-07] MEDS: Enoxaparin Inj 30 MG/0.3 ML Syringe SQ SCH ×2 (04:24→16:23)
[2018-02-07 04:27] LABS: Eosinophils 1 % (0-4); Lymphocytes 16 % (9-44); Metamyelocytes 2 % (0-1); Monocytes 7 % (0-8); Spherocytes Occ
[2018-02-07 04:28] LABS: Platelet Morphology Normal (Normal)
[2018-02-07] MEDS: QUEtiapine 25 MG Tablet PO SCH (06:39)
[2018-02-07 07:04] LABS: Bacteria,Urine Occasional /hpf; Bilirubin,Urine Negative (Negative); Clarity,Urine Clear (Clear); Color,Urine Yellow (Yellw/Straw); Glucose,Urine (UA) Negative (Negative); Leukocyte Esterase,Urine Small (Negative); Mucus,Urine Few /lpf (Occasional); Nitrite,Urine Negative (Negative); Specific Gravity,Urine 1.013 (1.002-1.035)
[2018-02-07] MEDS: Calcium/Vitamin D 250/125 MG Tablet PO SCH ×3 (08:51→17:15)
[2018-02-07] MEDS: Chlorhexidine 0.12% Oral Kit 15 ML UDC OROPHARYNG SCH ×2 (10:34→21:20)
[2018-02-07] MEDS: Senna/Docusate Sodium 8.6/50 MG Tablet PO SCH (10:35)
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
[2018-02-07] MEDS: Haloperidol Inj 5 MG/ML Ampul IV.PUSH PRN ×2 (11:44→20:17)
[2018-02-07] MEDS ORDERED: QUEtiapine 100 MG Tablet PO SCH (14:00)
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
[2018-02-08] MEDS: Pantoprazole Inj 40 MG Vial IV.PUSH SCH (00:35)
[2018-02-08] MEDS: Dexmedetomidine Inj 200 MCG in Sodium Chlor 0.9% Inj 48 ML IV.CONT PRN ×5 (00:36→22:59)
[2018-02-08] MEDS: Oral Hygiene Kit OROPHARYNG SCH ×4 (00:36→15:01)
[2018-02-08] MEDS: Enoxaparin Inj 30 MG/0.3 ML Syringe SQ SCH ×2 (04:32→15:01)
[2018-02-08] MEDS: Chlorhexidine 0.12% Oral Kit 15 ML UDC OROPHARYNG SCH ×2 (08:00→20:35)
[2018-02-08] MEDS: Calcium/Vitamin D 250/125 MG Tablet PO SCH ×3 (09:08→17:13)
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
[2018-02-08] MEDS: Haloperidol Inj 5 MG/ML Ampul IV.PUSH PRN (16:13)
[2018-02-09] MEDS: Pantoprazole Inj 40 MG Vial IV.PUSH SCH (00:20)
[2018-02-09] MEDS: Oral Hygiene Kit OROPHARYNG SCH ×4 (00:21→17:37)
[2018-02-09] MEDS: Enoxaparin Inj 30 MG/0.3 ML Syringe SQ SCH ×2 (03:33→17:37)
[2018-02-09] MEDS: Dexmedetomidine Inj 200 MCG in Sodium Chlor 0.9% Inj 48 ML IV.CONT PRN (03:50)
[2018-02-09 04:08] LABS: Baso # (Auto) 0.1 th/mm3 (0.0-0.2); Baso % (Auto) 0.7 % (0.0-2.0); Eos # (Auto) 0.3 th/mm3 (0.0-0.4); Eos % (Auto) 2.7 % (0.0-4.0); Hematocrit 29.9 % (39.0-51.0); Hemoglobin 9.8 gm/dL (13.0-17.0); Lymph # (Auto) 1.7 th/mm3 (1.0-4.8); Mean Corpuscular HGB Conc 32.9 % (32.0-36.0); Mean Corpuscular Hemoglobin 30.3 pg (27.0-34.0); Mean Corpuscular Volume 92.2 fL (80.0-100.0); Mean Platelet Volume 7.2 fL (7.0-11.0); Mono # (Auto) 1.2 th/mm3 (0.0-0.9); Mono % (Auto) 10.7 % (0.0-8.0); Neut # (Auto) 8.1 th/mm3 (1.8-7.7); Neut % (Auto) 70.9 % (16.0-70.0); Platelet Count 791 th/mm3 (150-450); Red Blood Count 3.24 mil/mm3 (4.50-5.90); Red Cell Distribution Width 18.6 % (11.6-17.2); White Blood Count 11.4 th/mm3 (4.0-11.0)
[2018-02-09 04:42] LABS: Anion Gap 8 meq/L (5-15); Blood Urea Nitrogen 7 mg/dL (7-18); Calcium 8.1 mg/dL (8.5-10.1); Carbon Dioxide 30.1 meq/L (21.0-32.0); Chloride 105 meq/L (98-107); Glomerular Filtration Rate Greater Than 89 mL/min (>89); Glucose,Random 114 mg/dL (74-106); Potassium 3.5 meq/L (3.5-5.1); Sodium 143 meq/L (136-145)
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
[2018-02-09] MEDS: Chlorhexidine 0.12% Oral Kit 15 ML UDC OROPHARYNG SCH ×2 (09:19→20:30)
[2018-02-09] MEDS: Calcium/Vitamin D 250/125 MG Tablet PO SCH ×3 (09:22→17:38)
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
--- NOTE | 2018-02-09 10:31 | P.PNNS ---
Subjective Interval history: Pt awake and makes good eye contact when talking to him. Follows some simple commands but slow response. Trach in place on vent. He has right eye ptosis and Right pupil 5mm left 4mm. Physical Exam Vital signs: Vital Signs 02/08/18 12:00 02/08/18 13:06 02/08/18 14:00 Temperature 98.7 F Pulse Rate 100 H 108 H Respiratory Rate 26 H Blood Pressure 167/18 H Pulse Oximetry 94 L 02/08/18 15:34 02/08/18 16:00 02/08/18 18:00 Temperature 98.2 F Pulse Rate 103 H 104 H Respiratory Rate 23 Blood Pressure 152/80 H Pulse Oximetry 96 95 02/08/18 20:00 02/08/18 21:11 02/08/18 22:00 Temperature 98.0 F Pulse Rate 88 79 Respiratory Rate 16 Blood Pressure 131/72 Pulse Oximetry 96 97 02/09/18 00:00 02/09/18 00:30 02/09/18 02:00 Temperature 98.0 F Pulse Rate 79 79 Respiratory Rate 16 18 Blood Pressure 134/72 Pulse Oximetry 97 99 02/09/18 03:36 02/09/18 04:00 02/09/18 05:53 Temperature 98.1 F Pulse Rate 77 77 Respiratory Rate 18 Blood Pressure 126/80 Pulse Oximetry 97 95 02/09/18 09:08 Temperature Pulse Rate Respiratory Rate 17 Blood Pressure Pulse Oximetry 94 L Intake & Output 02/08/18 02/09/18 02/09/18 18:59 06:59 18:59 Intake Total 400 / 400 1061 / 1061 Output Total 2700 / 2700 1300 / 1300 Balance -2300 / -2300 -239 / -239 Weight 76.9 kg Intake: IV 400 / 400 400 / 400 Precedex Inj 200 MCG In NS Inj 100 / 100 100 / 100 48 ML @ 0.2 MCG/KG/HR 3.87 mls/ hr IV.CONT TITRATE PRN Rx#: [id number] Zyvox 600 mg Premix 300 ML @ 300 / 300 300 / 300 300 mls/hr IV.SIG Q12H LUCIUS Rx#: [id number] Tube Feeding 601 / 601 Tube Irrigant 60 / 60 Output: Urine 1000 / 1000 Stool 600 / 600 300 / 300 Urine Amount (Catheter) 2099 Condom 2099 Other: Date of Last Bowel Movement 02/08/18 02/09/18 02/09/18 - Constitutional no acute distress Comments: Pt awake and makes good eye contact. He appears calm with trach in place on vent. He is on Precedex which is being weaned. - Routine HEENT Exam Head: Present: abrasion (Right side of head healing.). Absent: atraumatic ( Abrasions right side of head.) Eye: Absent: PERRL (Right pupil 5mm left 4mm reactive bilaterally. Right eyelid ptosis.), conjunctival icterus - Routine Neck Exam Present: trachea midline (Tach in place and pt on vent.) - Routine Respiratory Exam Present: patient mechanically ventilated (via trach.), CTA bilaterally. Absent : respiratory distress, rhonchi, wheezes - Routine Cardiovascular Exam Present: RRR, S1, S2. Absent: murmur - Routine Abdominal Exam Present: soft, normoactive bowel sounds. Absent: distended - Routine Skin Exam Absent: cyanosis, erythema Comments: LUE splinted and bandaged. LLE bandaged. - Routine Neurological Exam Present: alert (Calm on Precedex being weaned.), moving all extremities ( Delayed response to command. His LUE is splinted and bandaged and LLE is bandaged.) - Routine Psychiatric Exam Present: normal affect, cooperative, agitated (Sedated on Precedex which is being weaned.) - Urinary Catheter Management Indwelling Temp Sensing Catheter Cath placed during this visit: yes, but has since been removed by the nurse Reason for continuing: Hourly intake/output Insertion date: 01/24/18 Insertion time: 00:25 Removal date: 02/04/18 Removal time: 17:30 Indwelling Urethral Catheter Cath placed during this visit: no Condom Cath placed during this visit: no Assessment and Plan - Assessment (1) Subdural hemorrhage Code(s): I62.00 - Nontraumatic subdural hemorrhage, unspecified Status: Acute (2) TBI (traumatic brain injury) Code(s): S06.9X9A - Unspecified intracranial injury with loss of consciousness of unspecified duration, initial encounter Status: Acute Qualifiers: Encounter type: initial encounter Loss of consciousness presence/duration: with LOC of unspecified duration Qualified Code(s): S06.9X9A - Unspecified intracranial injury with loss of consciousness of unspecified duration, initial encounter - Plan 57 y/o male with right frontal subdural hematoma, right frontotemporal minimally displaced skull fracture, right temporal contusion, scattered traumatic subarachnoid hemorrhage, and C2 lateral mass fracture who presents as a GCS 7T. Repeat head CT 01/24 demonstrates blossoming of temporal contusion, very small increase in subdural hematoma (minimal mass effect, ~2 mm of midline shift). No ICP issues. ICP monitor removed 01/29/18. P: Maintain cervical collar (C2 lateral mass fracture). Follow up cervical x- ray 6 weeks from his injury. Continue with critical care. Pt being weaned off Precedex and possibly transferred to [facility]. Wean vent and sedation per critical care.
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
[2018-02-09] MEDS: Linezolid 600 MG Tablet PO SCH (21:35)
[2018-02-10] MEDS: Pantoprazole Inj 40 MG Vial IV.PUSH SCH (00:56)
[2018-02-10] MEDS: Oral Hygiene Kit OROPHARYNG SCH ×4 (00:56→15:52)
[2018-02-10] MEDS: Enoxaparin Inj 30 MG/0.3 ML Syringe SQ SCH ×2 (04:44→15:20)
--- NOTE | 2018-02-10 07:33 | P.PNOP ---
Subjective Interval history: POD 10 s/p IMN left tibia POD 7 s/p ORIF right acetabulum and left distal humerus trached. nurse reports that was given report to hold dressings and leave incisions open to air of left leg and right hip. states that does not know who gave initial instruction. nurse is concerned about redness and swelling of right lateral hip incision. also reports significant swelling over anterior abdominal incision Physical Exam Vital signs: Vital Signs 02/09/18 08:00 02/09/18 09:08 02/09/18 10:00 Temperature 99.9 F H Pulse Rate 88 88 Respiratory Rate 16 17 Blood Pressure 124/67 Pulse Oximetry 96 94 L 02/09/18 12:00 02/09/18 12:47 02/09/18 14:00 Temperature 100.0 F H Pulse Rate 102 H 96 H Respiratory Rate 19 25 H Blood Pressure 176/107 H Pulse Oximetry 94 L 96 02/09/18 16:00 02/09/18 18:00 02/09/18 18:24 Temperature 101.4 F H Pulse Rate 112 H 112 H Respiratory Rate 28 H 25 H Blood Pressure 172/81 H Pulse Oximetry 99 96 02/09/18 20:00 02/09/18 22:00 02/10/18 00:00 Temperature 98.5 F 99.2 F Pulse Rate 106 H 108 H 109 H Respiratory Rate 17 16 Blood Pressure 153/102 H 155/88 H Pulse Oximetry 100 97 02/10/18 01:33 02/10/18 02:00 02/10/18 04:00 Temperature 98.9 F Pulse Rate 111 H 106 H Respiratory Rate 16 17 Blood Pressure 162/89 H Pulse Oximetry 99 95 02/10/18 05:43 02/10/18 06:00 Temperature Pulse Rate 109 H Respiratory Rate 25 H Blood Pressure Pulse Oximetry 98 Intake & Output 02/09/18 02/10/18 02/10/18 18:59 06:59 18:59 Intake Total 617 / 617 811 / 811 Output Total 2500 / 2500 1400 / 1400 Balance -1883 / -1883 -589 / -589 Weight 75 kg Intake: Tube Feeding 617 / 617 611 / 611 Tube Irrigant 200 / 200 Output: Stool 400 / 400 400 / 400 Urine Amount (Catheter) 2099 / 2099 1000 / 1000 Condom 2099 1000 / 1000 Other: Date of Last Bowel Movement 02/09/18 02/10/18 Narrative: LUE: +long arm splint. intact LLE: no dressings present. incisions are healing well with no drainage or erythema. +plantar contracture Pelvis: abdominal incision has significant swelling with a mass that is visible and palpable. nontender. no fluctuance. no erythema. lateral incision is healing appropriately with moderate erythema over central incision. again, no dressings are present. - Urinary Catheter Management Indwelling Temp Sensing Catheter Cath placed during this visit: yes, but has since been removed by the nurse Reason for continuing: Hourly intake/output Insertion date: 01/24/18 Insertion time: 00:25 Removal date: 02/04/18 Removal time: 17:30 Indwelling Urethral Catheter Cath placed during this visit: no Condom Cath placed during this visit: no Results - Labs CBC & Chem 7: 02/09/18 02:45 02/09/18 02:45 Microbiology 02/06/18 11:19 Blood - Peripheral Aerobic Blood Culture - Preliminary No growth in 3 days 02/06/18 11:19 Blood - Peripheral Anaerobic Blood Culture - Preliminary No growth in 3 days 02/06/18 11:26 Blood - Peripheral Aerobic Blood Culture - Preliminary No growth in 3 days 02/06/18 11:26 Blood - Peripheral Anaerobic Blood Culture - Preliminary No growth in 3 days 02/07/18 06:10 Catheterized Urine Urine Culture - Final No growth in 48 hours Assessment and Plan - Assessment and Plan 1) Left tibial shaft fracture removal of hardware and external fixation with open reduction internal fixation POD 7 Nonweightbearing left lower extremity daily dressing changes with Xeroform 4 x 4's and Pranav wrap. ok to transition to primapore dressings if minimal drainage 2) Left Periprosthetic Distal Humerus fx s/p ORIF - POD 7 -NWB -maintain splint 3) Right Acetabulum Fx s/p ORIF - POD 7 -TTWB -daily dressing changes with primapore and xeroform -appears to have developed hematoma under incision. will discuss with Brise[facility] regarding possible evacuation -ortho surgeries complete -DVT prophylaxis -f/u with Briseida or [facility] in 2 weeks -continue dressing changes on all surgical sites. unacceptable to leave incisions open to air. follow ortho recs for all ortho surgical incisions. if any question regarding them, call ortho. It is unclear where the instruction originated from regarding leaving all surgical sites open to air, but it was incorrect and contraindicated. follow ortho dressing orders are previously placed.
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
--- NOTE | 2018-02-10 08:22 | P.PNOP ---
Subjective Interval history: POD 10 s/p IMN left tibia POD 7 s/p ORIF right acetabulum and left distal humerus trached. nurse reports that was given report to hold dressings and leave incisions open to air of left leg and right hip. states that does not know who gave initial instruction. nurse is concerned about redness and swelling of right lateral hip incision. also reports significant swelling over anterior abdominal incision Physical Exam Vital signs: Vital Signs 02/09/18 09:08 02/09/18 10:00 02/09/18 12:00 Temperature 100.0 F H Pulse Rate 88 102 H Respiratory Rate 17 19 Blood Pressure 176/107 H Pulse Oximetry 94 L 94 L 02/09/18 12:47 02/09/18 14:00 02/09/18 16:00 Temperature 101.4 F H Pulse Rate 96 H 112 H Respiratory Rate 25 H 28 H Blood Pressure 172/81 H Pulse Oximetry 96 99 02/09/18 18:00 02/09/18 18:24 02/09/18 20:00 Temperature 98.5 F Pulse Rate 112 H 106 H Respiratory Rate 25 H 17 Blood Pressure 153/102 H Pulse Oximetry 96 100 02/09/18 22:00 02/10/18 00:00 02/10/18 01:33 Temperature 99.2 F Pulse Rate 108 H 109 H Respiratory Rate 16 16 Blood Pressure 155/88 H Pulse Oximetry 97 99 02/10/18 02:00 02/10/18 04:00 02/10/18 05:43 Temperature 98.9 F Pulse Rate 111 H 106 H Respiratory Rate 17 25 H Blood Pressure 162/89 H Pulse Oximetry 95 98 02/10/18 06:00 02/10/18 07:38 Temperature Pulse Rate 109 H Respiratory Rate 20 Blood Pressure Pulse Oximetry 99 Intake & Output 02/09/18 02/10/18 02/10/18 18:59 06:59 18:59 Intake Total 617 / 617 811 / 811 Output Total 2500 / 2500 1400 / 1400 Balance -1883 / -1883 -589 / -589 Weight 75 kg Intake: Tube Feeding 617 / 617 611 / 611 Tube Irrigant 200 / 200 Output: Stool 400 / 400 400 / 400 Urine Amount (Catheter) 2099 1000 / 1000 Condom 2099 1000 / 1000 Other: Date of Last Bowel Movement 02/09/18 02/10/18 Narrative: LUE: +long arm splint. intact LLE: no dressings present. incisions are healing well with no drainage or erythema. +plantar contracture Pelvis: abdominal incision has significant swelling with a mass that is visible and palpable. nontender. no fluctuance. no erythema. lateral incision is healing appropriately with moderate erythema over central incision. again, no dressings are present. - Urinary Catheter Management Indwelling Temp Sensing Catheter Cath placed during this visit: yes, but has since been removed by the nurse Reason for continuing: Hourly intake/output Insertion date: 01/24/18 Insertion time: 00:25 Removal date: 02/04/18 Removal time: 17:30 Indwelling Urethral Catheter Cath placed during this visit: no Condom Cath placed during this visit: no Results - Labs CBC & Chem 7: 02/09/18 02:45 02/09/18 02:45 Microbiology 02/06/18 11:19 Blood - Peripheral Aerobic Blood Culture - Preliminary No growth in 3 days 02/06/18 11:19 Blood - Peripheral Anaerobic Blood Culture - Preliminary No growth in 3 days 02/06/18 11:26 Blood - Peripheral Aerobic Blood Culture - Preliminary No growth in 3 days 02/06/18 11:26 Blood - Peripheral Anaerobic Blood Culture - Preliminary No growth in 3 days 02/07/18 06:10 Catheterized Urine Urine Culture - Final No growth in 48 hours Assessment and Plan - Assessment and Plan 1) Left tibial shaft fracture removal of hardware and external fixation with open reduction internal fixation POD 7 Nonweightbearing left lower extremity daily dressing changes with Xeroform 4 x 4's and Pranav wrap. ok to transition to primapore dressings if minimal drainage 2) Left Periprosthetic Distal Humerus fx s/p ORIF - POD 7 -NWB -maintain splint 3) Right Acetabulum Fx s/p ORIF - POD 7 -TTWB -daily dressing changes with primapore and xeroform -appears to have developed hematoma under incision. will discuss with Br[facility] regarding possible evacuation -ortho surgeries complete -DVT prophylaxis -f/u with Briseida or [facility] in 2 weeks -continue dressing changes on all surgical sites. unacceptable to leave incisions open to air. follow ortho recs for all ortho surgical incisions. if any question regarding them, call ortho. It is unclear where the instruction originated from regarding leaving all surgical sites open to air, but it was incorrect and contraindicated. follow ortho dressing orders are previously placed. -spoke with Dr Goins regarding hematoma in abdomen under pelvic incision. patient will require I&D and evacuation of hematoma. unable to be performed today. need to hold transfer to [facility] as will be proceeding with surgery tomorrow AM for I&D. consents are placed on chart. npo after MN.
[2018-02-10] MEDS: Calcium/Vitamin D 250/125 MG Tablet PO SCH ×3 (08:36→18:57)
[2018-02-10] MEDS: Linezolid 600 MG Tablet PO SCH ×2 (08:36→21:06)
[2018-02-10] MEDS: Chlorhexidine 0.12% Oral Kit 15 ML UDC OROPHARYNG SCH ×2 (08:37→21:04)
[2018-02-10] MEDS ORDERED: Lidocaine PF 1% Inj 5 ML Syringe OTHER ONE (12:00)
[2018-02-10] MEDS ORDERED: fentaNYL Citrate Inj 100 MCG/2 ML Ampul ONE ×2 (13:25)
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
[2018-02-11] MEDS: Oral Hygiene Kit OROPHARYNG SCH ×4 (03:41→15:41)
[2018-02-11] MEDS: Enoxaparin Inj 30 MG/0.3 ML Syringe SQ SCH ×2 (03:49→15:41)
[2018-02-11] MEDS: Pantoprazole Inj 40 MG Vial IV.PUSH SCH (03:52)
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
--- NOTE | 2018-02-11 08:38 | P.PNOP ---
Subjective Interval history: POd 1 s/p I&D with hematoma evacuation of pelvis POD 8 s/p ORIF left distal humerus and right acetabulum POD 11 s/p IMN left tibia trached. no changes. Physical Exam Vital signs: Vital Signs 02/10/18 11:08 02/10/18 11:50 02/10/18 12:00 Temperature 98.7 F Pulse Rate 112 H Respiratory Rate 28 H 21 Blood Pressure 164/94 H Pulse Oximetry 95 100 99 02/10/18 14:00 02/10/18 15:31 02/10/18 16:00 Temperature 98.9 F Pulse Rate 98 H 98 H Respiratory Rate 17 16 Blood Pressure 156/85 H Pulse Oximetry 100 98 02/10/18 18:00 02/10/18 19:46 02/10/18 19:57 Temperature Pulse Rate 106 H Respiratory Rate 16 16 Blood Pressure Pulse Oximetry 97 02/10/18 20:00 02/10/18 22:00 02/11/18 00:00 Temperature 98.9 F 98.8 F Pulse Rate 102 H 101 H 99 H Respiratory Rate 16 16 Blood Pressure 141/73 H 136/71 Pulse Oximetry 95 96 02/11/18 00:10 02/11/18 02:00 02/11/18 04:00 Temperature 98.9 F Pulse Rate 98 H 98 H Respiratory Rate 16 16 Blood Pressure 146/76 H Pulse Oximetry 98 98 02/11/18 04:08 02/11/18 06:00 02/11/18 07:45 Temperature Pulse Rate 101 H Respiratory Rate 16 22 Blood Pressure Pulse Oximetry 95 96 Intake & Output 02/10/18 02/11/18 02/11/18 18:59 06:59 18:59 Intake Total 1467 / 1467 896 / 896 Output Total 1655 / 1655 1500 / 1500 Balance -188 / -188 -604 / -604 Weight 73.6 kg Intake: Tube Feeding 317 / 317 656 / 656 Tube Irrigant 150 / 150 Water Bolus Amount 240 / 240 Anesthesia Amount 1000 / 1000 Output: Urine/Stool Mix 100 / 100 Estimated Blood Loss 5 / 5 Urine Amount (Catheter) 1500 / 1500 1500 / 1500 Condom 1500 / 1500 1500 / 1500 Wound Drainage 50 / 50 # 1 Right Hip TAYLOR Drain 50 / 50 Other: Date of Last Bowel Movement 10/09/18 10/10/18 Narrative: LLE: dressings clean and dry.intact LUE: +splint. intact. nvi RLE: dressings clean and dry. +drain in anterior pelvis - Urinary Catheter Management Indwelling Temp Sensing Catheter Cath placed during this visit: yes, but has since been removed by the nurse Reason for continuing: Hourly intake/output Insertion date: 01/24/18 Insertion time: 00:25 Removal date: 02/04/18 Removal time: 17:30 Indwelling Urethral Catheter Cath placed during this visit: no Condom Cath placed during this visit: no Results - Labs CBC & Chem 7: 02/09/18 02:45 02/09/18 02:45 Microbiology 02/06/18 11:19 Blood - Peripheral Aerobic Blood Culture - Preliminary No growth in 4 days 02/06/18 11:19 Blood - Peripheral Anaerobic Blood Culture - Preliminary No growth in 4 days 02/06/18 11:26 Blood - Peripheral Aerobic Blood Culture - Preliminary No growth in 4 days 02/06/18 11:26 Blood - Peripheral Anaerobic Blood Culture - Preliminary No growth in 4 days Assessment and Plan - Assessment and Plan 1) Left tibial shaft fracture removal of hardware and external fixation with open reduction internal fixation POD 11 Nonweightbearing left lower extremity daily dressing changes with Xeroform 4 x 4's and Pranav wrap. ok to transition to primapore dressings if minimal drainage 2) Left Periprosthetic Distal Humerus fx s/p ORIF - POD 8 -NWB -maintain splint 3) Right Acetabulum Fx s/p ORIF - POD 8 -TTWB -daily dressing changes with primapore and xeroform 4) Hematoma of anterior pelvic incision s/p I&D - POD 1 -maintain drain -ortho surgeries complete -DVT prophylaxis -f/u with [facility] or [facility] in 2 weeks - will need xrays of left tibia next week -will follow at [facility]
[2018-02-11] MEDS: Calcium/Vitamin D 250/125 MG Tablet PO SCH ×2 (09:09→12:01)
[2018-02-11] MEDS: Chlorhexidine 0.12% Oral Kit 15 ML UDC OROPHARYNG SCH (09:09)
[2018-02-11] MEDS: Linezolid 600 MG Tablet PO SCH (09:09)
[2018-02-11] MEDS: Potassium Chloride 25 MEQ Effervescent Tablet PO PRN ×2 (09:09→09:13)
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
[2018-02-11 11:54] VITALS: O2SAT 97
[2018-02-11 12:18] VITALS: TEMP 99
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
[2018-02-11 16:58] VITALS: BP 126/62; PULSE 102; RESP 25
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
== END 2018-02-11 16:49 ==
LOC: NEPI 23:27 → NEDA 01-24 00:24 → EDBD 01-24 00:24 → MERGE 01-24 00:24 → N03 01-24 00:37
PROVIDERS: ADMIT Surgery; ATTEND Surgery
PROC: ORIFACE (2018-02-03 13:14)